=== PATIENT | female | born 1940 | race Caucasian/White ===

== ENCOUNTER → 2016-03-21 | Day surgery (SDC) | payer MEDICARE, OTHER ==
[~2016-03-21] MED LIST: BACITRACIN OINT 1 EACH PACKET TOPICAL ONE; LIDOCAINE 1% INJ 10MG/ML (20 ML MDV) ONE; LIDOCAINE 1%-EPI 1:100,000 20 ML VIAL ONE; SODIUM BICARB 4% 5 ML VIAL (0.48 MEQ/ML) ONE
--- NOTE | 2016-03-24 13:59 | MM ---
EXAMINATION TYPE: MG stereo VAD BX RT, MG stereo VAD BX addl LT DATE OF EXAM: 03/21/2016 4:37 PM COMPARISON: NONE CLINICAL HISTORY: Abnormal mammogram TECHNIQUE: Stereotactic guided core biopsy of both breasts. FINDINGS: The procedure of stereotactic guided core biopsy was explained to the patient. Benefits, alternatives, and risks were discussed. An informed consent was then obtained. The shortness pathway for biopsy was chosen. Shortness pathway was mediolateral on the right and lateral to medial on the left. PHYSICIAN OUTREACH AND EDUCATION SOCIAL WORKER: Dr. Nur. The patient tolerated the procedure well without any immediate complication. The patient was kept in the radiology department for short stay after the procedure and then discharged home in stable condition. Post biopsy mammogram shows the clip to appear in satisfactory position relative to the targeted area of concern on the preprocedure images. IMPRESSION: SUCCESSFUL, UNCOMPLICATED STEREOTACTIC GUIDED CORE BIOPSY OF AREA OF CONCERN IN BOTH BREASTS, FULL PATHOLOGY RESULTS TO FOLLOW. Pathology Results: Benign A. BREAST, RIGHT, CORE BIOPSY: FIBROCYSTIC CHANGES INCLUDING CYSTS, FIBROSIS, SCLEROSING ADENOSIS, APOCRINE METAPLASIA AND CALCIFICATIONS. B. BREAST, LEFT, CORE BIOPSY: FIBROADENOMA AND FIBROCYSTIC CHANGES INCLUDING FIBROSIS AND SMALL CYSTS. Recommendation Follow up mammogram of both breasts in 6 months. MASON
== END ==
LOC: RADMAMWWP 12:48
PROVIDERS: ATTEND Surgery
DX: D24.2 Benign neoplasm of left breast (principal); N60.12 Diffuse cystic mastopathy of left breast; N60.11 Diffuse cystic mastopathy of right breast; N60.21 Fibroadenosis of right breast; N60.81 Other benign mammary dysplasias of right breast; R92.1 Mammographic calcification found on diagnostic imaging of breast; R92.8 Other abnormal and inconclusive findings on diagnostic imaging of breast
CPT/HCPCS: 88305; 19081; 19082; A4648; J2001

== ENCOUNTER 2016-04-14 19:32 | Inpatient (IN) | payer MEDICARE, OTHER ==
[2016-04-14] MEDS ORDERED: ASPIRIN 81 MG CHEW PO STA (19:56)
[2016-04-14] MEDS ORDERED: NITROGLYCERIN SL TABS 0.4 MG TAB SUBLINGUAL STA (19:57)
--- NOTE | 2016-04-14 19:59 | ED ---
Arrhythmia/Palpitations HPI - General Chief Complaint: Arrhythmia/Palpitations Stated Complaint: racing heart Time Seen by Provider: 04/14/16 19:42 Source: patient, RN notes reviewed Mode of arrival: wheelchair Limitations: no limitations - History of Present Illness Initial Comments: This is a 75-year-old female history of colitis and previous heart problems who came in [facility] for evaluation of her blood pressure also she complained of an elevated heart rate. She states her blood pressure was running 183/100 yesterday today he was also elevated with a heart rate greater than 100. She also states she's been having 4-5/10 left-sided chest pressure. She has the pressure right now. She denies any cough fevers chills nausea vomiting sweats. She states she recently had bilateral breast biopsies she believes this pain is different than biopsies were done on March 21 of this year. She also states she has reflux the pain is different than the reflux. MD Complaint: palpitations - Related Data Home Medications Medication Instructions Recorded Confirmed Alive 1 tab PO DAILY 04/14/16 04/14/16 Aspirin EC [Ecotrin Low Dose] 81 mg PO DAILY PRN 04/14/16 04/14/16 Levothyroxine Sodium [Synthroid] 88 mcg PO DAILY 04/14/16 04/14/16 Lisinopril [Zestril] 5 mg PO BID 04/14/16 04/14/16 Allergies Allergy/AdvReac Type Severity Reaction Status Date / Time sulfamethoxazole Allergy Rash/Hives Verified 04/14/16 20:03 [From Bactrim] trimethoprim [From Bactrim] Allergy Rash/Hives Verified 04/14/16 20:03 Review of Systems ROS Statement: Those systems with pertinent positive or pertinent negative responses have been documented in the HPI. ROS Other: All systems not noted in ROS Statement are negative. Past Medical History Past Medical History: Coronary Artery Disease (CAD), Thyroid Disorder Additional Past Medical History / Comment(s): colitis, arthritis History of Any Multi-Drug Resistant Organisms: None Reported Past Surgical History: Hysterectomy Past Psychological History: No Psychological Hx Reported Smoking Status: Never smoker Past Alcohol Use History: None Reported Past Drug Use History: None Reported General Exam - General Exam Comments Initial Comments: This is a well-developed well-nourished awake alert oriented 3 female Limitations: no limitations General appearance: alert, in no apparent distress Head exam: Present: atraumatic, normocephalic, normal inspection Eye exam: Present: normal appearance, PERRL, EOMI. Absent: scleral icterus, conjunctival injection, periorbital swelling ENT exam: Present: normal exam, mucous membranes moist Neck exam: Present: normal inspection. Absent: tenderness, meningismus, lymphadenopathy Respiratory exam: Present: normal lung sounds bilaterally. Absent: respiratory distress, wheezes, rales, rhonchi, stridor Cardiovascular Exam: Present: regular rate, normal rhythm, normal heart sounds. Absent: systolic murmur, diastolic murmur, rubs, gallop, clicks GI/Abdominal exam: Present: soft, normal bowel sounds. Absent: distended, tenderness, guarding, rebound, rigid Extremities exam: Present: normal inspection, full ROM, normal capillary refill. Absent: tenderness, pedal edema, joint swelling, calf tenderness Back exam: Present: normal inspection Neurological exam: Present: alert, oriented X3, CN II-XII intact Psychiatric exam: Present: normal affect, normal mood Skin exam: Present: warm, dry, intact, normal color. Absent: rash Course Vital Signs 04/14/16 04/14/16 19:34 20:18 Temperature 98.2 F Pulse Rate 96 90 Respiratory 18 18 Rate Blood Pressure 179/80 94/61 O2 Sat by Pulse 98 99 Oximetry - Reevaluation(s) Reevaluation #1: 04/14/16 21:26 Reevaluation the patient after nitroglycerin was given reveals that she is pain- free. EKG Findings - EKG Results: EKG: interpreted by MOISES, sinus rhythm (Sinus rhythm with a rate of 81 a MS interval 178 QRS duration 92 daily since QTC of 364/422 frequent unifocal PVCs.) Medical Decision Making - Medical Decision Making I did discuss findings with patient has a facial be admitted for evaluation of suspected angina. - Lab Data Result diagrams: 04/14/16 19:52 04/14/16 19:52 Lab Results 04/14/16 04/14/16 04/14/16 Range/Units 19:52 19:52 19:52 WBC 7.0 (3.8-10.6) k/uL RBC 4.52 (3.80-5.40) m/uL Hgb 13.1 (11.4-16.0) gm/dL Hct 39.2 (34.0-46.0) % MCV 86.8 (80.0-100.0) fL MCH 29.0 (25.0-35.0) pg MCHC 33.5 (31.0-37.0) g/dL RDW 12.5 (11.5-15.5) % Plt Count 171 (150-450) k/uL Neutrophils % 65 % Lymphocytes % 28 % Monocytes % 6 % Eosinophils % 0 % Basophils % 0 % Neutrophils # 4.6 (1.3-7.7) k/uL Lymphocytes # 1.9 (1.0-4.8) k/uL Monocytes # 0.4 (0-1.0) k/uL Eosinophils # 0.0 (0-0.7) k/uL Basophils # 0.0 (0-0.2) k/uL PT (9.0-12.0) sec INR (<1.1) APTT (22.0-30.0) sec Sodium 141 (137-145) mmol/L Potassium 4.1 (3.5-5.1) mmol/L Chloride 101 (98-107) mmol/L Carbon Dioxide 27 (22-30) mmol/L Anion Gap 13 mmol/L BUN 12 (7-17) mg/dL Creatinine 0.68 (0.52-1.04) mg/dL Est GFR (MDRD) Af Amer >60 (>60 ml/min/1.73 sqM) Est GFR (MDRD) Non-Af >60 (>60 ml/min/1.73 sqM) Glucose 125 H (74-99) mg/dL Calcium 9.6 (8.4-10.2) mg/dL Magnesium 1.9 (1.6-2.3) mg/dL Total Bilirubin 0.4 (0.2-1.3) mg/dL AST 20 (14-36) U/L ALT 28 (9-52) U/L Alkaline Phosphatase 71 (38-126) U/L Total Creatine Kinase 37 (30-135) U/L CK-MB (CK-2) 0.2 (0.0-2.4) ng/mL CK-MB (CK-2) Rel Index 0.5 Troponin I <0.012 (0.000-0.034) ng/mL Total Protein 7.0 (6.3-8.2) g/dL Albumin 4.3 (3.5-5.0) g/dL 04/14/16 Range/Units 19:52 WBC (3.8-10.6) k/uL RBC (3.80-5.40) m/uL Hgb (11.4-16.0) gm/dL Hct (34.0-46.0) % MCV (80.0-100.0) fL MCH (25.0-35.0) pg MCHC (31.0-37.0) g/dL RDW (11.5-15.5) % Plt Count (150-450) k/uL Neutrophils % % Lymphocytes % % Monocytes % % Eosinophils % % Basophils % % Neutrophils # (1.3-7.7) k/uL Lymphocytes # (1.0-4.8) k/uL Monocytes # (0-1.0) k/uL Eosinophils # (0-0.7) k/uL Basophils # (0-0.2) k/uL PT 10.4 (9.0-12.0) sec INR 1.0 (<1.1) APTT 22.2 (22.0-30.0) sec Sodium (137-145) mmol/L Potassium (3.5-5.1) mmol/L Chloride (98-107) mmol/L Carbon Dioxide (22-30) mmol/L Anion Gap mmol/L BUN (7-17) mg/dL Creatinine (0.52-1.04) mg/dL Est GFR (MDRD) Af Amer (>60 ml/min/1.73 sqM) Est GFR (MDRD) Non-Af (>60 ml/min/1.73 sqM) Glucose (74-99) mg/dL Calcium (8.4-10.2) mg/dL Magnesium (1.6-2.3) mg/dL Total Bilirubin (0.2-1.3) mg/dL AST (14-36) U/L ALT (9-52) U/L Alkaline Phosphatase (38-126) U/L Total Creatine Kinase (30-135) U/L CK-MB (CK-2) (0.0-2.4) ng/mL CK-MB (CK-2) Rel Index Troponin I (0.000-0.034) ng/mL Total Protein (6.3-8.2) g/dL Albumin (3.5-5.0) g/dL - Radiology Data Radiology results: report reviewed (Review the x-ray report shows no acute findings.), image reviewed Critical Care Time Critical Care Time: Yes Critical Care Time: 31 minutes of critical care time which includes initial history physical lab and x-ray orders reevaluation the patient's response to therapy reevaluation the patient. Discussion with the patient's findings with patient and her . Discussion with the attending physician and the shoulders and documentation of the above. Disposition Clinical Impression: Unstable angina, PVCs (premature ventricular contractions), Hypertension Disposition: ADMITTED IP TO THIS [facility] Condition: Stable Referrals: Danyelle Reid MD [Primary Care Provider] - 1-2 days
[2016-04-14 20:19] LABS: Basophils % (A) 0 %; CH 29.7; CHCM 34.4; Eosinophils % (A) 0 %; HCT 39.2 % (34.0-46.0); HDW 2.45; HGB 13.1 gm/dL (11.4-16.0); Luc % (Auto) 1; Lymphocytes # (A) 1.9 k/uL (1.0-4.8); Lymphocytes % (A) 28 %; MCHC 33.5 g/dL (31.0-37.0); MCV 86.8 fL (80.0-100.0); Mean Platelet Volume 8.2; Monocytes # (A) 0.4 k/uL (0-1.0); Monocytes % (A) 6 %; Neutrophils # (A) 4.6 k/uL (1.3-7.7); Neutrophils % (A) 65 %; RBC 4.52 m/uL (3.80-5.40); RDW 12.5 % (11.5-15.5); WBC (Perox) 7.35
[2016-04-14 20:27] LABS: ALT 28 U/L (9-52); AST 20 U/L (14-36); Alkaline Phosphatase 71 U/L (38-126); Anion Gap 13 mmol/L; Blood Urea Nitrogen 12 mg/dL (7-17); Calcium 9.6 mg/dL (8.4-10.2); Carbon Dioxide 27 mmol/L (22-30); Chloride 101 mmol/L (98-107); Glucose 125 mg/dL (74-99); Magnesium 1.9 mg/dL (1.6-2.3); Non-African American GFR(MDRD) >60 (>60 ml/min/1.73 sqM); Partial Thromboplastin Time 22.2 sec (22.0-30.0); Potassium 4.1 mmol/L (3.5-5.1); Prothrombin Time 10.4 sec (9.0-12.0); Sodium 141 mmol/L (137-145); Total Bilirubin 0.4 mg/dL (0.2-1.3)
[2016-04-14 20:50] LABS: Creatine Kinase 37 U/L (30-135)
--- NOTE | 2016-04-14 20:50 | XR ---
EXAMINATION TYPE: XR chest 2V DATE OF EXAM: 04/14/2016 8:33 PM COMPARISON: 11/27/2012 HISTORY: Hypertension. Dysrhythmia. TECHNIQUE: Frontal and lateral views of the chest are obtained. FINDINGS: Heart and mediastinum are normal. Lungs are clear of consolidation. There are no hilar mas ses. There is mild pectus excavatum chest deformity. Bony thorax is intact. There are no hilar masses . There are chest leads. IMPRESSION: No active cardiopulmonary disease. Normal heart. No change.
[2016-04-14 21:02] LABS: Creatine Kinase MB 0.2 ng/mL (0.0-2.4); Troponin I <0.012 ng/mL (0.000-0.034)
[2016-04-14] MEDS ORDERED: HEPARIN SODIUM,PORCINE 5,000 UNIT/ML 1 ML VIAL IV ONE (21:30)
[2016-04-14] MEDS ORDERED: HEPARIN SODIUM,PORCINE/D5W PMX 25,000 UNIT in DEXTROSE/WATER 1 500ML.BAG IV SCH (21:30)
[2016-04-14] MEDS ORDERED: NITROGLYCERIN SL TABS 0.4 MG TAB SUBLINGUAL PRN (21:30)
[2016-04-14] MEDS: SODIUM CHLORIDE 0.9% 1,000 ML IV SCH (21:53)
[2016-04-14 22:33] VITALS: BMI 25.0
[2016-04-14] MEDS: NITROGLYCERIN OINT 1 INCH/GM PACKET TOPICAL SCH (22:58)
[2016-04-15 03:39] LABS: Creatine Kinase 33 U/L (30-135)
[2016-04-15 03:51] LABS: Creatine Kinase MB <0.2 ng/mL (0.0-2.4); Troponin I <0.012 ng/mL (0.000-0.034)
[2016-04-15] MEDS: NITROGLYCERIN OINT 1 INCH/GM PACKET TOPICAL SCH (04:03)
[2016-04-15 04:20] LABS: Cholesterol 162 mg/dL (<200); HDL Cholesterol 46 mg/dL (40-60); Triglycerides 115 mg/dL (<150)
[2016-04-15] MEDS: LEVOTHYROXINE 88 MCG TAB PO SCH (05:09)
[2016-04-15 07:42] VITALS: RESP 16
[2016-04-15 08:14] LABS: Creatine Kinase 52 U/L (30-135)
[2016-04-15 08:28] LABS: Creatine Kinase MB 0.4 ng/mL (0.0-2.4); Troponin I <0.012 ng/mL (0.000-0.034)
--- NOTE | 2016-04-15 09:39 | P.HPIM ---
History of Present Illness H&P Date: 04/15/16 75-year-old female presented on the day of admission to the emergency room to be evaluated for a chief complaint symptomatic elevated heart rate with an elevated blood pressure. Patient states that she monitors her blood pressure at home checks it a couple times a day. She stated that she noted her blood pressure was up to 180/100 and heart rate was up to 119 patient stated that she could feel heart palpitations. Additional patient stated that she was experiencing left-sided chest pressure. Patient stated she became concerned and came to the emergency room to be evaluated for the above-mentioned symptoms. Patient states her primary supervisor [employer] Dr. vc lacy which she sees twice a year last visit was 6 months ago. Patient states that she has not had a stress test it's been greater than a year. Patient states her blood pressure the last couple days has been elevated. Patient states that she's had episodes at home that she felt dizzy and lightheaded and has actually fallen. On admission to the emergency room blood pressure in the emergency room was 179/80 heart rate in the 90s. Nitropaste was applied in the emergency room with a blood pressure of 94/61 subsequent the patient was admitted to the services of the attending with a cardiology consultation requested It's noted last night around midnight the patient stated that she did get up to go to the bathroom by herself felt dizzy lightheaded and the next thing she knew she was on the floor nursing reports patient had fallen when the patient was on assisted getting up to the bathroom patient states that she had had similar episodes at home and has fallen orthostatic blood pressure readings were obtained this morning lying 124/53 heart rate in the 80s sitting 131/60 3 heart rate 82 standing 134/73 heart rate 80 monitor has maintained sinus rhythm Review of Systems Essentially unremarkable except as mentioned in the present illness Past Medical History Past Medical History: Coronary Artery Disease (CAD), Thyroid Disorder Additional Past Medical History / Comment(s): colitis, arthritis History of Any Multi-Drug Resistant Organisms: None Reported Past Surgical History: Hysterectomy Past Anesthesia/Blood Transfusion Reactions: Postoperative Nausea & Vomiting ( PONV) Past Psychological History: No Psychological Hx Reported Smoking Status: Never smoker Past Alcohol Use History: None Reported Past Drug Use History: None Reported - Past Family History Father Additional Family Medical History / Comment(s): Black lung and ETOH Mother Family Medical History: Cancer, CVA/TIA Additional Family Medical History / Comment(s): Uterine CA Medications and Allergies Home Medications Medication Instructions Recorded Confirmed Type Alive 1 tab PO DAILY 04/14/16 04/14/16 History Aspirin EC [Ecotrin Low Dose] 81 mg PO DAILY PRN 04/14/16 04/14/16 History Levothyroxine Sodium [Synthroid] 88 mcg PO DAILY 04/14/16 04/14/16 History Lisinopril [Zestril] 5 mg PO BID 04/14/16 04/14/16 History Allergies Allergy/AdvReac Type Severity Reaction Status Date / Time sulfamethoxazole Allergy Rash/Hives Verified 04/14/16 22:24 [From Bactrim] trimethoprim [From Bactrim] Allergy Rash/Hives Verified 04/14/16 22:24 Physical Exam Vitals: Vital Signs Temp Pulse Pulse Resp BP BP Pulse Ox 04/15/16 08:23 96 04/15/16 07:41 98.1 F 66 16 135/64 99 04/15/16 04:00 98 F 65 18 127/68 100 04/15/16 00:00 18 04/14/16 23:19 90 18 153/63 99 04/14/16 22:45 18 04/14/16 22:23 97.9 F 74 18 156/72 96 04/14/16 21:55 97.5 F L 71 18 130/64 99 Intake and Output 04/14/16 04/15/16 04/15/16 22:59 06:59 14:59 Intake Total 500 120 Balance 500 120 Intake: Oral 500 120 Other: Voiding Method Toilet # Voids 1 1 Weight 62.1 kg GENERAL APPEARANCE: 75-year-old female patient is alert, oriented 3, in no acute distress. Currently is denying any dizziness lightheadedness shortness of breath or chest pain VITAL SIGNS: Reviewed HEENT: Head is normocephalic and atraumatic. Pupils are equal and reactive. The nares are patent. Oropharynx is clear without lesions. NECK: Supple without lymphadenopathy. Traches midline. HEART: S1, S2. Regular rate and rhythm. A soft murmur noted appreciated best at the apex monitor currently showing sinus rhythm occasional PVCs rate 80 LUNGS: No crackles or wheezes are heard. On room air sats are 94% ABDOMEN: Soft, nontender, nondistended with good bowel sounds. No peritoneal signs. No palpable organomegaly or masses. Denies any burning on urination frequency urgency or incontinence denies any frequent stooling denies any nausea vomiting EXTREMITIES: Normal skin color and turgor. No cyanosis, rash, ulceration, clubbing or edema. Radial pedal pulses are 2/4 bilaterally. NEUROLOGICAL: No focal deficits. Strength and sensation are grossly intact. Results CBC & Chem 7: 04/14/16 19:52 04/14/16 19:52 Labs: Abnormal Lab Results - Last 24 Hours (Table) 04/15/16 Range/Units 03:00 APTT 46.3 H (22.0-30.0) sec Thrombosis Risk Factor Assmnt - Choose All That Apply Each Risk Factor Represents 2 Points: Age 61-74 years Thrombosis Risk Factor Assessment Total Risk Factor Score: 2 Thrombosis Risk Factor Assessment Level: Low Risk Assessment and Plan Plan: Impression Present on admission chest pain left chest anterior wall with cardiac enzymes times 3 sets negative Present on admission hypertension urgency history of hypertension History of hypothyroid on supplements History of frequent falls syncopal episodes at home Episode of a syncopal episode this admission Plan Check orthostatic blood pressure readings every shift Cardiology consultation pending Check echocardiogram Check thyroid studies Resume home meds as appropriate DVT and GI prophylaxis IV fluid at 100cchour Monitor blood pressure heart rate address as indicated Further recommendations pending The above dictated assessment and findings were discussed with Dr. Bryan Impression and the plan of care have been dictated as directed. Kassy Deshpande nurse practitioner acting as a scribe for dr bryan
[2016-04-15] MEDS ORDERED: ASPIRIN 81 MG CHEW PO PRN (09:44)
[2016-04-15] MEDS: HEPARIN SODIUM,PORCINE 5,000 UNIT/ML 1 ML VIAL SQ SCH ×3 (10:44→23:07)
[2016-04-15] MEDS: ASPIRIN 325 MG TAB PO SCH (10:44)
[2016-04-15] MEDS: FAMOTIDINE 20 MG TAB PO SCH ×2 (10:44→21:53)
--- NOTE | 2016-04-15 11:59 | US ---
EXAMINATION TYPE: US carotid duplex BILAT DATE OF EXAM: 04/15/2016 9:44 AM COMPARISON: NONE CLINICAL HISTORY: Syncopal episode. EXAM MEASUREMENTS: RIGHT: Peak Systolic Velocity (PSV) cm/sec ----- Right CCA: 84.6 ----- Right ICA: 82.7 ----- Right ECA: 90.0 ICA/CCA ratio: 1.0 RIGHT: End Diastole cm/sec ----- Right CCA: 22.0 ----- Right ICA: 15.8 ----- Right ECA: 8.6 LEFT: Peak Systolic Velocity (PSV) cm/sec ----- Left CCA: 106.2 ----- Left ICA: 77.1 ----- Left ECA: 102.8 ICA/CCA ratio: 0.7 LEFT: End Diastole cm/sec ----- Left CCA: 27.4 ----- Left ICA: 21.1 ----- Left ECA: 16.2 VERTEBRALS (direction of flow): Right Vertebral: Antegrade Left Vertebral: Antegrade Findings: Intimal thickening noted. IMPRESSION: 1. No significant hemodynamic stenosis bilaterally. Criteria for Assigning % of Stenosis / Diameter reduction (Estimation based on the indirect measurements of the internal carotid artery velocities (ICA PSV). 1. Normal (no stenosis)=ICA PSV < 125 cm/s: ratio < 2.0: ICA EDV<40 cm/s. 2. Less than 50% stenosis=ICA PSV < 125 cm/s: ratio < 2.0: ICA EDV<40 cm/s. 3. 50 to 69% stenosis=ICA PSV of 125 to 230 cm/s: ration 2.0 ? 4.0: ICA EDV 40-100 cm/s. 4. Greater than 70% stenosis to near occlusion= ICA PSV > 230 cm/s: ratio > 4.0: ICA EDV > 100 cm/s. 5. Near occlusion= ICA PSV velocities may be low or undetectable: variable ratio and ICA EDV. 6. Total occlusion=unable to detect flow.
--- NOTE | 2016-04-15 18:17 | CONS ---
DATE OF CONSULTATION: Mrs. Camara is a patient of Dr. Sandra Roe. She came in complaining of chest discomfort that was relieved with ( ). She had 5 out of 10 chest discomfort that was relieved with nitroglycerin, however, her blood pressure was also very high and was 183/100 mmHg and heart rate around 100 beats a minute. MEDICATIONS: Include 1. Aspirin. 2. Zestril 5 mg p.o. b.i.d. ALLERGIES TO SULFA AND TRIMETHOPRIM. REVIEW OF SYSTEMS: No fever, chills, rigors. No cough or expectoration. No nausea, vomiting or diarrhea. No hematuria or dysuria. No strokes or seizures. No skin lesions or musculoskeletal complaints. Past medical history of coronary artery disease, thyroid disease, and ulcerative colitis. PAST SURGICAL HISTORY: Hysterectomy. SOCIAL HISTORY: She is a never smoker. On examination initial blood pressure was 179/80 millimeters of mercury and subsequently one was 94/61 millimeters of Hg after nitroglycerin. On examination, heart sounds S1, S2 are normal. Breath sounds are normal. Head and neck examination is normal. No carotid bruits. ABDOMEN: Soft, nontender. EXTREMITIES: Warm. No edema. No cardiac murmurs. No rhonchi. No crackles of the lung piper. LABS: Reviewed. Cardiac enzymes x3 are normal. LDL is 93. Electrolytes are normal. IMPRESSION: 1. History of hypertension. 2. Possible history of dysautonomia. 3. History of chest discomfort in the setting of elevated blood pressure with normal cardiac enzymes. ECG shows normal sinus rhythm with normal cardiac intervals and PVCs with a left bundle branch block morphology. This has been noticed in the past. 4. Right ventricular PVCs from the ( ) muscle. SUGGEST: Tilt table test tomorrow. Lisinopril is on hold at this time. I would like to perform tilt table test to assess her for dysautonomia and form a plan of action. She fluctuates a lot even 5 mg once daily of Lisinopril and if I do not think a Catapres patch, even at its lowest dose would help her. She may be quite hypotensive on it. I will reassess this tomorrow after tilt table testing.
[2016-04-15] MEDS: LISINOPRIL 5 MG TAB PO SCH ×2 (18:20→21:29)
[2016-04-15] MEDS: SODIUM CHLORIDE 0.9% 1,000 ML IV SCH ×2 (18:24→18:44)
[2016-04-16] MEDS: LEVOTHYROXINE 88 MCG TAB PO SCH (05:20)
[2016-04-16 07:36] LABS: Basophils % (A) 0 %; CH 29.4; CHCM 33.5; Eosinophils % (A) 0 %; HCT 36.7 % (34.0-46.0); Luc # (Auto) 0.08; Luc % (Auto) 2; Lymphocytes # (A) 1.6 k/uL (1.0-4.8); Lymphocytes % (A) 37 %; MCH 28.8 pg (25.0-35.0); MCHC 32.7 g/dL (31.0-37.0); MCV 88.1 fL (80.0-100.0); Mean Platelet Volume 7.5; Monocytes # (A) 0.2 k/uL (0-1.0); Monocytes % (A) 6 %; Neutrophils # (A) 2.5 k/uL (1.3-7.7); Neutrophils % (A) 56 %; RBC 4.16 m/uL (3.80-5.40); RDW 12.5 % (11.5-15.5); WBC 4.4 k/uL (3.8-10.6); WBC (Perox) 4.75
[2016-04-16 07:46] LABS: ALT 29 U/L (9-52); AST 18 U/L (14-36); Alkaline Phosphatase 67 U/L (38-126); Anion Gap 7 mmol/L; Blood Urea Nitrogen 12 mg/dL (7-17); Calcium 9.3 mg/dL (8.4-10.2); Carbon Dioxide 29 mmol/L (22-30); Chloride 105 mmol/L (98-107); Glucose 95 mg/dL (74-99); Non-African American GFR(MDRD) >60 (>60 ml/min/1.73 sqM); Potassium 4.2 mmol/L (3.5-5.1); Sodium 141 mmol/L (137-145); Total Bilirubin 0.5 mg/dL (0.2-1.3); Total Protein 6.2 g/dL (6.3-8.2)
--- NOTE | 2016-04-16 10:16 | ECHOF ---
Referral Reason:LV function MEASUREMENTS -------- HEIGHT: 157.5 cm WEIGHT: 61.7 kg BP: 165/92 RVIDd: 2.3 cm (< 3.3) IVSd: 0.9 cm (0.6 - 1.1) LVIDd: 4.0 cm (3.9 - 5.3) LVPWd: 1.0 cm (0.6 - 1.1) IVSs: 1.5 cm LVIDs: 2.6 cm LVPWs: 1.6 cm LA Diam: 3.1 cm (2.7 - 3.8) LAESV Index (A-L): 19.80 ml/m Ao Diam: 2.3 cm (2.0 - 3.7) AV Cusp: 1.2 cm (1.5 - 2.6) LA Diam: 2.9 cm (2.7 - 3.8) MV EXCURSION: 10.738 mm (> 18.000) MV EF SLOPE: 54 mm/s (70 - 150) EPSS: 0.6 cm MV E Ghanshyam: 0.90 m/s MV DecT: 274 ms MV A Ghanshyam: 0.97 m/s MV E/A Ratio: 0.93 FINDINGS -------- Sinus rhythm. This was a technically good study. Left ventricular wall thickness is normal. Overall left ventricular systolic function is normal with, an EF between 55 - 60 %. The right ventricle is normal in size. Normal LA size by volume 22+/-6 ml/m2. The right atrium is normal in size. Aortic valve is trileaflet and is mildly thickened. The mitral valve leaflets are mildly thickened. Mild mitral annular calcification present. Mild mitral regurgitation is present. Trace tricuspid regurgitation present. Pulmonic valve appears structurally normal. The aortic root size is normal. Normal inferior vena cava with normal inspiratory collapse consistent with estimated right atrial pressure of 5 mmHg. Echo free space may represent effusion or a pericardial fat pad. CONCLUSIONS -------- 1. Sinus rhythm. 2. Mild mitral annular calcification present. 3. Mild mitral regurgitation is present. 4. Trace tricuspid regurgitation present. 5. Pulmonic valve appears structurally normal. 6. The aortic root size is normal. 7. Echo free space may represent effusion or a pericardial fat pad. 8. This was a technically good study. 9. Left ventricular wall thickness is normal. 10. Overall left ventricular systolic function is normal with, an EF between 55 - 60 %. 11. The right ventricle is normal in size. 12. Normal LA size by volume 22+/-6 ml/m2. 13. The right atrium is normal in size. 14. Aortic valve is trileaflet and is mildly thickened. 15. The mitral valve leaflets are mildly thickened. IDENTIFICATION OFFICER: Mayito Bo RDCS
[2016-04-16] MEDS: FAMOTIDINE 20 MG TAB PO SCH ×2 (10:47→20:43)
[2016-04-16] MEDS: ASPIRIN 325 MG TAB PO SCH (10:47)
[2016-04-16] MEDS: HEPARIN SODIUM,PORCINE 5,000 UNIT/ML 1 ML VIAL SQ SCH ×3 (10:48→23:46)
[2016-04-16] MEDS: LISINOPRIL 5 MG TAB PO SCH ×2 (11:24→21:08)
--- NOTE | 2016-04-16 14:40 | P.PN ---
Subjective Patient presented to the emergency room with complaint elevated heart rate and elevated blood pressure. Patient also had some dizziness and a near syncopal episode. Also having episodes of chest pain. Evaluated by cardiology and underwent a tilt table test today. Awaiting results. Patient does report having some dizziness during the testing. Also reporting she still unsteady on her feet. Denies any chest pain, shortness of breath, nausea or vomiting. Last bowel movement occult days ago. Denies any difficulty urinating. Objective - Vital Signs Vital signs: Vital Signs Temp 98.5 F 04/16/16 11:39 Pulse 75 04/16/16 11:39 Resp 16 04/16/16 11:39 BP 123/66 04/16/16 11:39 Pulse Ox 99 04/16/16 11:39 Intake & Output 04/15/16 04/16/16 04/16/16 18:59 06:59 18:59 Intake Total 436 520 Balance 436 520 Intake: Intake, IV Titration 120 Amount Sodium Chloride 0.9% 1, 120 000 ml @ 20 mls/hr IV . [facility] Rx#:[id number] Oral 436 400 Other: Voiding Method Toilet Toilet Toilet # Voids 1 3 - Exam Head normocephalic Neck supple Lungs clear to auscultation bilaterally no wheezing or crackles Heart regular rate and rhythm S1-S2, no rub or gallop Abdomen is soft nontender nondistended positive bowel sounds no hepatosplenomegaly Extremities no edema Neuro alert and orientated to 3 - Labs CBC & Chem 7: 04/16/16 07:12 04/16/16 07:12 Labs: Abnormal Lab Results - Last 24 Hours (Table) 04/16/16 Range/Units 07:12 Total Protein 6.2 L (6.3-8.2) g/dL TSH 0.253 L (0.465-4.680) mIU/L Assessment and Plan Plan: 1. Chest pain: RI ruled out cardiac enzymes negative 3 sets. EKG showing a normal sinus rhythm with PVCs and left bundle branch block 2. Accelerated hypertension present on admission has improved 3. Frequent falls with near syncopal episodes at home. Orthostatics negative. evaluated by cardiology. They've ordered a tilt table test results pending. Carotid Doppler is negative. Echo shows an EF of 55-60% 4. Hypothyroidism continue with the Synthroid 5. Medical debility and unsteady gait consult physical therapy DVT prophylaxis subcu heparin GI prophylaxis Pepcid Await further cardiac recommendations
[2016-04-16] MEDS: SODIUM CHLORIDE 0.9% 1,000 ML IV SCH (20:43)
--- NOTE | 2016-04-16 21:20 | CE ---
DATE OF SERVICE: Carmelina Camara underwent a tilt table test for recurrent dizzy spells and for evaluation for dysautonomia. Baseline blood pressure 136/65 mm mercury and 142/65 millimeters mercury, heart rate in the 60s. She was tilted upright at an angle of 70 degrees. There was an immediate drop in her blood pressure to 112/58 mm of mercury and then remained fairly constant thereafter. Heart rate increased in the 70s and 80s. When she was laid supine, blood pressure increased to 139/66 mm of mercury. IMPRESSION: Orthostatic hypotension syndrome.
[2016-04-17] MEDS: LEVOTHYROXINE 88 MCG TAB PO SCH (05:11)
[2016-04-17] MEDS ORDERED: SENNOSIDES 8.6 MG TAB PO PRN (08:31)
[2016-04-17] MEDS: FAMOTIDINE 20 MG TAB PO SCH (08:36)
[2016-04-17] MEDS: ASPIRIN 325 MG TAB PO SCH (08:36)
[2016-04-17] MEDS: HEPARIN SODIUM,PORCINE 5,000 UNIT/ML 1 ML VIAL SQ SCH (08:36)
[2016-04-17] MEDS: LISINOPRIL 5 MG TAB PO SCH (08:36)
[2016-04-17 12:09] VITALS: BP 153/74; PULSE 71; TEMP 97.7
--- NOTE | 2016-04-17 12:36 | PN ---
Mrs. Cramelina martin much is a 75-year-old female who presented with dizziness. She underwent a tilt table test yesterday and she has orthostatic hypotension syndrome. Her baseline blood pressure in the supine position is about 130 to 140 systolic, when she is tilted upright, her blood pressure immediately drops to about 112 mmHg and it stays around 110 systolic. When she is laid supine, her blood pressure returns to 130s to 140 mmHg. She was symptomatic with this, but she did not pass out. She has orthostatic hypotension syndrome with a very slight increase in heart rate. There was a very mild increase in heart rate. Today she is lying comfortably in bed. Her blood pressure is 139/83 mmHg as it was yesterday, heart rates are in the 60s. She is afebrile 97.4 degrees Fahrenheit. Heart sounds are normal. Lungs are clear to auscultation. Extremities are warm. No edema. IMPRESSION: 1. Orthostatic hypotension syndrome. 2. History of colitis, which makes it worse. SUGGEST: I gave her some lifestyle modification advice for this condition, but she understands that this is a neurologic condition and she will see Dr. Sandra Roe and we will refer to her to a neurologist who will evaluate her further and I think Droxidopa could be an appropriate choice for her.
--- NOTE | 2016-04-17 13:11 | P.DS ---
Providers Date of admission: 04/15/16 14:15 Expected date of discharge: 04/17/16 Attending physician: Sorin Bryan Primary care physician: Danyelle Reid [facility] Course: This is a 75-year-old female with past medical history noted below who presented to the emergency room with chest discomfort and dizziness. She was placed on observation was seen and evaluated by cardiology. Below is a list of her medical problems addressed during this hospital stay. 1. Chest pain: TX ruled out cardiac enzymes negative 3 sets. EKG showing a normal sinus rhythm with PVCs and left bundle branch block 2. Accelerated hypertension present on admission has improved 3. Frequent falls with near syncopal episodes at home. Orthostatics checked and negative tilt table test was positive. Patient received IV fluid hydration. She was evaluated by cardiology. Carotid Doppler is within normal range. Echo shows an EF of 55-60% with no significant valvular abnormalities 4. Hypothyroidism continue with the Synthroid Patient was cleared for discharge. She will follow-up with cardiology and her primary care physician as directed. Patient Condition at Discharge: Stable Plan - Discharge Summary Discharge Medication List Alive 1 tab PO DAILY 04/14/16 [History] Aspirin EC [Ecotrin Low Dose] 81 mg PO DAILY PRN 04/14/16 [History] Levothyroxine Sodium [Synthroid] 88 mcg PO DAILY 04/14/16 [History] Lisinopril [Zestril] 5 mg PO BID 04/14/16 [History] Follow up Appointment(s)/Referral(s): Danyelle Reid MD [Primary Care Provider] - 1-2 days
== END 2016-04-17 15:11 | disposition home or self-care (01) | DRG 312 ==
LOC: EC 19:32 → 3OBS 21:30 → OBSVTOIN 04-15 14:15
PROVIDERS: ADMIT Internal Medicine; ATTEND Internal Medicine
PROC: 4A03XB1 Measurement of Arterial Pressure, Peripheral, External Approach (ICD-10-PCS; 2016-04-16)
PROC: 4A02XFZ Measurement of Cardiac Rhythm, External Approach (ICD-10-PCS; principal; 2016-04-16 10:00)
DX: I95.1 Orthostatic hypotension (principal); I44.7 Left bundle-branch block, unspecified; I10 Essential (primary) hypertension; E03.9 Hypothyroidism, unspecified; K21.9 Gastro-esophageal reflux disease without esophagitis; R26.81 Unsteadiness on feet; Z91.81 History of falling; R07.9 Chest pain, unspecified; I25.10 Atherosclerotic heart disease of native coronary artery without angina pectoris; M19.90 Unspecified osteoarthritis, unspecified site; I49.3 Ventricular premature depolarization; Z79.82 Long term (current) use of aspirin; Z79.899 Other long term (current) drug therapy; Z88.1 Allergy status to other antibiotic agents; Z88.2 Allergy status to sulfonamides
CPT/HCPCS: 36415; 71020; 80053; 80061; 82550; 82553; 83735; 84439; 84443; 84484; 85025; 85610; 85730; 93005; 93306; 93660; 93880; 94760; 96361; 96365; 96366; 96372; 96374; 96375; 99291

== ENCOUNTER → 2016-09-19 | Outpatient (CLI) | payer MEDICARE, OTHER ==
--- NOTE | 2016-09-19 09:20 | MM ---
Reason for exam: follow-up at short interval from prior study. Last mammogram was performed 7 months ago. History: Patient is postmenopausal. Benign MG stereo VAD BX addl LT of the left breast, March 21, 2016. Benign MG stereo VAD BX RT of the right breast, March 21, 2016. Benign excisional biopsy of the right breast. Took estrogen for 15 years beginning at age 37. Physical Findings: Nurse did not find any significant physical abnormalities on exam. MG 3D Diag Mammo W/Cad ALEX Bilateral CC and MLO view(s) were taken. Prior study comparison: February 21, 2016, mammogram, performed at [facility]. December 14, 2014, mammogram, performed at [facility]. The breast tissue is heterogeneously dense. This may lower the sensitivity of mammography. Previous mammotome biopsy in the right and left breast. No significant new findings when compared with previous films. These results were verbally communicated with the patient and result sheet given to the patient on 09/19/16. ASSESSMENT: Benign, BI-RAD 2 RECOMMENDATION: Routine screening mammogram of both breasts in 6 months. Back on schedule.
== END | disposition home or self-care (01) ==
LOC: RADMAMWWP 08:19
PROVIDERS: ATTEND Family Medicine
DX: R92.8 Other abnormal and inconclusive findings on diagnostic imaging of breast (principal)
CPT/HCPCS: G0204; G0279

== ENCOUNTER → 2017-05-02 | Outpatient (CLI) | payer MEDICARE, OTHER ==
--- NOTE | 2017-05-02 12:10 | XR ---
EXAMINATION TYPE: XR chest 2V DATE OF EXAM: 05/02/2017 COMPARISON: 04/14/2016 TECHNIQUE: PA and lateral views submitted. HISTORY: Pain and fatigue FINDINGS: The lungs are clear and there is no pneumothorax, pleural effusion, or focal pneumonia. Hypertrophi c and degenerative change of the spine. Arthropathy of the shoulders noted. IMPRESSION: 1. No acute process.
--- NOTE | 2017-05-06 09:55 | MM ---
Reason for exam: screening (asymptomatic). Last mammogram was performed 7 months ago. History: Patient is postmenopausal. Benign MG stereo VAD BX addl LT of the left breast, March 21, 2016. Benign MG stereo VAD BX RT of the right breast, March 21, 2016. Benign excisional biopsy of the right breast. Took estrogen for 15 years beginning at age 37. Physical Findings: A clinical breast exam by your physician is recommended on an annual basis and results should be correlated with mammographic findings. MG 3D Screening Mammo W/Cad Bilateral CC and MLO view(s) were taken. Prior study comparison: September 19, 2016, bilateral MG 3d diag mammo w/cad ALEX. February 21, 2016, mammogram, performed at [facility]. The breast tissue is heterogeneously dense. This may lower the sensitivity of mammography. Previous mammotome biopsy in the right and left breast. No significant changes when compared with prior studies. ASSESSMENT: Benign, BI-RAD 2 RECOMMENDATION: Routine screening mammogram of both breasts in 1 year.
== END | disposition home or self-care (01) ==
LOC: RADMAMWWP 11:15
PROVIDERS: ATTEND Family Medicine
DX: Z12.31 Encounter for screening mammogram for malignant neoplasm of breast (principal); R53.83 Other fatigue
CPT/HCPCS: 71046; 77063; 77067

== ENCOUNTER 2017-08-03 07:29 | Emergency (ER) | payer MEDICARE, OTHER ==
[2017-08-03] MEDS ORDERED: SODIUM CHLORIDE 0.9% 1,000 ML IV STA (07:57)
[2017-08-03] MEDS ORDERED: KETOROLAC 30 MG/ML 1 ML VIAL IVP STA ×2 (07:57→08:57)
--- NOTE | 2017-08-03 08:19 | ED ---
Back Pain HPI - General Chief Complaint: Back Pain/Injury Stated Complaint: Back Pain Time Seen by Provider: 08/03/17 07:44 Source: patient, RN notes reviewed Limitations: no limitations - History of Present Illness Initial Comments: This is a 77-year-old female who presents with complaints of the onset of stabbing sharp right lower back pain at around 4 AM this morning when she got up. She states she has sweat with it no fevers chills no dysuria no hematuria. She denies any injury denies any known abdominal problems no weakness or upper or lower extremities. She states the pain was almost 10/10 initially is now 5/10 she points to her right SI joint area. She has no prior history kidney stones she denies any hematuria. No other modifying factors MD Complaint: back injury - Related Data Home Medications Medication Instructions Recorded Confirmed Alive 1 tab PO DAILY 04/14/16 04/14/16 Aspirin EC [Ecotrin Low Dose] 81 mg PO DAILY PRN 04/14/16 04/14/16 Levothyroxine Sodium [Synthroid] 88 mcg PO DAILY 04/14/16 04/14/16 Lisinopril [Zestril] 5 mg PO BID 04/14/16 04/14/16 Previous Rx's Medication Instructions Recorded methylPREDNISolone Dose Pack 4 mg PO DIRECTED #21 package 08/03/17 [Medrol Dose Pack] traMADol HCL [Ultram] 50 mg PO Q6HR PRN 3 Days #12 tab 08/03/17 Allergies Allergy/AdvReac Type Severity Reaction Status Date / Time sulfamethoxazole Allergy Rash/Hives Verified 08/03/17 07:35 [From Bactrim] trimethoprim [From Bactrim] Allergy Rash/Hives Verified 08/03/17 07:35 Review of Systems ROS Statement: Those systems with pertinent positive or pertinent negative responses have been documented in the HPI. ROS Other: All systems not noted in ROS Statement are negative. Past Medical History Past Medical History: Coronary Artery Disease (CAD), Thyroid Disorder Additional Past Medical History / Comment(s): colitis, arthritis History of Any Multi-Drug Resistant Organisms: None Reported Past Surgical History: Hysterectomy Past Anesthesia/Blood Transfusion Reactions: Postoperative Nausea & Vomiting ( PONV) Past Psychological History: No Psychological Hx Reported Smoking Status: Never smoker Past Alcohol Use History: None Reported Past Drug Use History: None Reported - Past Family History Father Additional Family Medical History / Comment(s): Black lung and ETOH Mother Family Medical History: Cancer, CVA/TIA Additional Family Medical History / Comment(s): Uterine CA General Exam - General Exam Comments Initial Comments: This is a well-developed well-nourished awake alert oriented 3 female Limitations: no limitations General appearance: alert, in no apparent distress Head exam: Present: atraumatic, normocephalic, normal inspection Eye exam: Present: normal appearance, PERRL, EOMI. Absent: scleral icterus, conjunctival injection, periorbital swelling ENT exam: Present: normal exam, mucous membranes moist Neck exam: Present: normal inspection. Absent: tenderness, meningismus, lymphadenopathy Respiratory exam: Present: normal lung sounds bilaterally. Absent: respiratory distress, wheezes, rales, rhonchi, stridor Cardiovascular Exam: Present: regular rate, normal rhythm, normal heart sounds. Absent: systolic murmur, diastolic murmur, rubs, gallop, clicks GI/Abdominal exam: Present: soft, normal bowel sounds. Absent: distended, tenderness, guarding, rebound, rigid Extremities exam: Present: normal inspection, full ROM, normal capillary refill. Absent: tenderness, pedal edema, joint swelling, calf tenderness Back exam: Present: normal inspection, full ROM (Limited range of motion secondary to the pain), tenderness (Tenderness over the right SI joint area to palpation no step-off or crepitation). Absent: CVA tenderness (R), CVA tenderness (L), muscle spasm, vertebral tenderness Neurological exam: Present: alert, oriented X3, CN II-XII intact Psychiatric exam: Present: normal affect, normal mood Skin exam: Present: warm, dry, intact, normal color. Absent: rash Course Vital Signs 08/03/17 08/03/17 07:33 10:01 Temperature 97.3 F L Pulse Rate 80 99 Respiratory 20 18 Rate Blood Pressure 185/79 139/65 O2 Sat by Pulse 99 98 Oximetry Medical Decision Making - Medical Decision Making I did discuss the findings with the patient she did get some relief from the medication was given. She will be discharged after IV medication the presentation is consistent with sacroiliitis of note she did state that she had a root canal done earlier this week - Lab Data Result diagrams: 08/03/17 08:13 08/03/17 08:13 Lab Results 08/03/17 08/03/17 08/03/17 Range/Units 08:13 08:13 08:13 WBC 5.0 (3.8-10.6) k/uL RBC 4.39 (3.80-5.40) m/uL Hgb 12.8 (11.4-16.0) gm/dL Hct 37.6 (34.0-46.0) % MCV 85.8 (80.0-100.0) fL MCH 29.1 (25.0-35.0) pg MCHC 33.9 (31.0-37.0) g/dL RDW 12.8 (11.5-15.5) % Plt Count 176 (150-450) k/uL Neutrophils % 79 % Lymphocytes % 15 % Monocytes % 5 % Eosinophils % 0 % Basophils % 0 % Neutrophils # 3.9 (1.3-7.7) k/uL Lymphocytes # 0.8 L (1.0-4.8) k/uL Monocytes # 0.3 (0-1.0) k/uL Eosinophils # 0.0 (0-0.7) k/uL Basophils # 0.0 (0-0.2) k/uL D-Dimer (<0.60) mg/L FEU Sodium 139 (137-145) mmol/L Potassium 4.4 (3.5-5.1) mmol/L Chloride 100 (98-107) mmol/L Carbon Dioxide 29 (22-30) mmol/L Anion Gap 10 mmol/L BUN 13 (7-17) mg/dL Creatinine 0.64 (0.52-1.04) mg/dL Est GFR (CKD-EPI)AfAm >90 (>60 ml/min/1.73 sqM) Est GFR (CKD-EPI)NonAf 88 (>60 ml/min/1.73 sqM) Glucose 117 H (74-99) mg/dL Calcium 9.3 (8.4-10.2) mg/dL Magnesium 2.0 (1.6-2.3) mg/dL Total Bilirubin 0.5 (0.2-1.3) mg/dL AST 20 (14-36) U/L ALT 26 (9-52) U/L Alkaline Phosphatase 70 (38-126) U/L Total Creatine Kinase 39 (30-135) U/L CK-MB (CK-2) 0.3 (0.0-2.4) ng/mL CK-MB (CK-2) Rel Index 0.8 Troponin I <0.012 (0.000-0.034) ng/mL Total Protein 6.3 (6.3-8.2) g/dL Albumin 3.9 (3.5-5.0) g/dL Lipase 41 (23-300) U/L Urine Color Urine Appearance (Clear) Urine pH (5.0-8.0) Ur Specific Flora (1.001-1.035) Urine Protein (Negative) Urine Glucose (UA) (Negative) Urine Ketones (Negative) Urine Blood (Negative) Urine Nitrite (Negative) Urine Bilirubin (Negative) Urine Urobilinogen (<2.0) mg/dL Ur Leukocyte Esterase (Negative) 08/03/17 08/03/17 Range/Units 08:13 09:00 WBC (3.8-10.6) k/uL RBC (3.80-5.40) m/uL Hgb (11.4-16.0) gm/dL Hct (34.0-46.0) % MCV (80.0-100.0) fL MCH (25.0-35.0) pg MCHC (31.0-37.0) g/dL RDW (11.5-15.5) % Plt Count (150-450) k/uL Neutrophils % % Lymphocytes % % Monocytes % % Eosinophils % % Basophils % % Neutrophils # (1.3-7.7) k/uL Lymphocytes # (1.0-4.8) k/uL Monocytes # (0-1.0) k/uL Eosinophils # (0-0.7) k/uL Basophils # (0-0.2) k/uL D-Dimer 1.00 H (<0.60) mg/L FEU Sodium (137-145) mmol/L Potassium (3.5-5.1) mmol/L Chloride (98-107) mmol/L Carbon Dioxide (22-30) mmol/L Anion Gap mmol/L BUN (7-17) mg/dL Creatinine (0.52-1.04) mg/dL Est GFR (CKD-EPI)AfAm (>60 ml/min/1.73 sqM) Est GFR (CKD-EPI)NonAf (>60 ml/min/1.73 sqM) Glucose (74-99) mg/dL Calcium (8.4-10.2) mg/dL Magnesium (1.6-2.3) mg/dL Total Bilirubin (0.2-1.3) mg/dL AST (14-36) U/L ALT (9-52) U/L Alkaline Phosphatase (38-126) U/L Total Creatine Kinase (30-135) U/L CK-MB (CK-2) (0.0-2.4) ng/mL CK-MB (CK-2) Rel Index Troponin I (0.000-0.034) ng/mL Total Protein (6.3-8.2) g/dL Albumin (3.5-5.0) g/dL Lipase (23-300) U/L Urine Color Yellow Urine Appearance Clear (Clear) Urine pH 6.5 (5.0-8.0) Ur Specific Flora 1.012 (1.001-1.035) Urine Protein Negative (Negative) Urine Glucose (UA) Negative (Negative) Urine Ketones Negative (Negative) Urine Blood Negative (Negative) Urine Nitrite Negative (Negative) Urine Bilirubin Negative (Negative) Urine Urobilinogen <2.0 (<2.0) mg/dL Ur Leukocyte Esterase Negative (Negative) - Radiology Data Radiology results: report reviewed (I did review the imaging and reports no acute findings.), image reviewed Disposition Clinical Impression: Sacroiliitis, Mechanical back pain Disposition: HOME SELF-CARE Condition: Good Instructions: Acute Low Back Pain (ED), Sacroiliitis (ED) Prescriptions: methylPREDNISolone Dose Pack [Medrol Dose Pack] 4 mg PO DIRECTED #21 package traMADol HCL [Ultram] 50 mg PO Q6HR PRN 3 Days #12 tab PRN Reason: Pain Is patient prescribed a controlled substance at d/c from ED?: Yes When asked, does pt state using other controlled substances?: No Referrals: Danyelle Reid MD [Primary Care Provider] - 1-2 days
[2017-08-03 08:30] LABS: Basophils % (A) 0 %; Eosinophils % (A) 0 %; HCT 37.6 % (34.0-46.0); HGB 12.8 gm/dL (11.4-16.0); Lymphocytes # (A) 0.8 k/uL (1.0-4.8); Lymphocytes % (A) 15 %; MCH 29.1 pg (25.0-35.0); MCHC 33.9 g/dL (31.0-37.0); MCV 85.8 fL (80.0-100.0); Mean Platelet Volume 7.8; Monocytes # (A) 0.3 k/uL (0-1.0); Monocytes % (A) 5 %; Neutrophils # (A) 3.9 k/uL (1.3-7.7); Neutrophils % (A) 79 %; Platelet Count 176 k/uL (150-450); RBC 4.39 m/uL (3.80-5.40); RDW 12.8 % (11.5-15.5)
[2017-08-03 08:41] LABS: ALT 26 U/L (9-52); AST 20 U/L (14-36); Albumin 3.9 g/dL (3.5-5.0); Alkaline Phosphatase 70 U/L (38-126); Anion Gap 10 mmol/L; Blood Urea Nitrogen 13 mg/dL (7-17); Calcium 9.3 mg/dL (8.4-10.2); Carbon Dioxide 29 mmol/L (22-30); Chloride 100 mmol/L (98-107); Glucose 117 mg/dL (74-99); Lipase 41 U/L (23-300); Potassium 4.4 mmol/L (3.5-5.1); Sodium 139 mmol/L (137-145); Total Bilirubin 0.5 mg/dL (0.2-1.3); Total Protein 6.3 g/dL (6.3-8.2)
--- NOTE | 2017-08-03 08:53 | XR ---
EXAMINATION TYPE: XR abdomen acute w cxr DATE OF EXAM: 08/03/2017 COMPARISON: Prior chest x-ray 05/02/2017 HISTORY: Pain TECHNIQUE: Supine, upright, and frontal chest views of the abdomen and chest are obtained. FINDINGS: Chest is stable, there is a pectus deformity. There is no evidence for pneumoperitoneum. The bowel gas pattern is unremarkable as there is air throughout nondilated small and large bowel. R etained fecal debris is noted in the colon. No sizeable air fluid levels. No mass effects are seen. No unusual calcifications. There is a levoscoliosis centered at the upper lumbar spine. Multilevel s pondylosis is noted. Probable phleboliths present in the pelvis. IMPRESSION: Correlate for fecal stasis. Scoliosis, degenerative disc disease.
--- NOTE | 2017-08-03 08:55 | XR ---
Lumbosacral spine HISTORY: Low back pain 5 views of the lumbosacral spine There is a levoscoliosis centered at L1-2. Multilevel spondylosis is present. Lumbar vertebral bodies show no spondylolysis, there is preserved height, bone mineralization somewhat reduced. There is los s of disc height at intervertebral levels. Sclerosis present in the posterior elements of the lower l umbar spine. Atherosclerotic vascular calcifications present in the aortoiliac regions. Mild anteroli sthesis grade 1 L3-4, L4-5 suspected. IMPRESSION: Degenerative disc disease, facet arthropathy, scoliosis and additional findings above.
[2017-08-03] MEDS ORDERED: RX INFO: IV CONTRAST WAS GIVEN 1 EACH MISC MISCELLANE PRN (08:56)
[2017-08-03 08:58] LABS: Creatine Kinase 39 U/L (30-135)
[2017-08-03 09:11] LABS: Creatine Kinase MB 0.3 ng/mL (0.0-2.4); Troponin I <0.012 ng/mL (0.000-0.034)
[2017-08-03 09:12] LABS: Appearance,Urine Clear (Clear); Bilirubin,Urine Negative (Negative); Blood,Urine Negative (Negative); Color,Urine Yellow; Glucose,Urine (UA) Negative (Negative); Ketones,Urine Negative (Negative); Leukocyte Esterase,Urine Negative (Negative); Nitrite,Urine Negative (Negative); PH, Urine 6.5 (5.0-8.0); Protein,Urine Negative (Negative); Specific Gravity,Urine 1.012 (1.001-1.035); Urobilinogen,Urine <2.0 mg/dL (<2.0)
--- NOTE | 2017-08-03 10:29 | CT ---
EXAMINATION TYPE: CT angio thoracic/abd aorta DATE OF EXAM: 08/03/2017 COMPARISON: NONE HISTORY: Back pain CT DLP: 530 mGycm. Automated Exposure Control for Dose Reduction was Utilized. CONTRAST: CT scan of the thorax, abdomen and pelvis is performed with IV Contrast, patient injected with 100 ml mL of Isovue 370. FINDINGS: Three-dimensional reconstructions performed on an alternate workstation. LUNGS: The lungs are grossly clear, there is no concerning parenchymal mass or nodule identified. T here is no pleural effusion or pneumothorax seen. The tracheobronchial tree is patent. MEDIASTINUM: There are no greater than 1 cm hilar or mediastinal lymph nodes. No pericardial effusi on is seen. The aorta shows no evident aneurysm or dissection. Mild atheromatous changes are present. 3 super aor tic branch vessels are present. Pulmonary arteries show no filling defect. Mesenteric vasculature is patent. No evident embolus. LIVER/GB: No significant abnormality is appreciated. PANCREAS: No significant abnormality is seen. SPLEEN: No significant abnormality is seen. ADRENALS: No significant abnormality is seen. KIDNEYS: No significant abnormality is seen. BOWEL: Duodenal diverticulum suspected within the level of the head of the pancreas. GENITAL ORGANS: Not seen is the uterus, suspect ovaries are unremarkable LYMPH NODES: No greater than 1cm abdominal or pelvic lymph nodes are appreciated. OSSEOUS STRUCTURES: Degenerative disc changes in the visualized spine, there is a spinal curvature. F acet arthropathy and spinal stenosis present in the lumbar spine OTHER: No significant additional abnormality is seen. IMPRESSION: No acute osseous fracture, abnormal fluid collection, or evidence of solid organ injury i n the thorax, abdomen, or pelvis.
[2017-08-03] MEDS ORDERED: fentaNYL (PF) 50 MCG/ML 2 ML AMP IV ONE (10:41)
[2017-08-03] MEDS ORDERED: methylPREDNISolone SOD SUCCI 125 MG/2 ML VIAL IV STA (10:56)
[2017-08-03 11:17] VITALS: RESP 16; TEMP 98
[2017-08-03 11:52] VITALS: BP 144/67; PULSE 64
== END 2017-08-03 11:53 | disposition home or self-care (01) ==
LOC: EC 07:29
DX: M46.1 Sacroiliitis, not elsewhere classified (principal); I25.10 Atherosclerotic heart disease of native coronary artery without angina pectoris; E07.9 Disorder of thyroid, unspecified; Z79.899 Other long term (current) drug therapy; Z88.1 Allergy status to other antibiotic agents
CPT/HCPCS: 36415; 85379; 80053; 82550; 82553; 83690; 83735; 84484; 85025; 81003; 74022; 72110; 75635; 71275; 99284; 96374; 96375 ×2; 96376; 96361 ×4; J2930; J3010; J1885; Q9967

== ENCOUNTER → 2017-12-26 | Outpatient (CLI) | payer MEDICARE, OTHER ==
--- NOTE | 2017-12-27 09:51 | NM ---
EXAMINATION TYPE: NM DatScan Brain SPECT DATE OF EXAM: 12/26/2017 COMPARISON: NONE HISTORY: Tremors TECHNIQUE: 10 drops of Lugol's solution was administered 1 hour prior to injection as a thyroid bloc chapo agent. After the administration of 4.66 mCi I-123 Ioflupane DaTscan. Images obtained 3 hours p ost injection. SPECT images of the brain were acquired with axial and coronal reconstructions. FINDINGS: The axial SPECT images demonstrate increased background activity and reduced activity withi n the bilateral striata. IMPRESSION: Abnormal appearance highly suggestive of idiopathic Parkinson's disease or Parkinsonian s yndrome.
== END | disposition home or self-care (01) ==
LOC: RADNMMAIN 10:14
PROVIDERS: ATTEND Psychiatry & Neurology Neurology
DX: R94.8 Abnormal results of function studies of other organs and systems (principal)
CPT/HCPCS: 78607; A9584

== ENCOUNTER → 2018-01-11 | Outpatient (CLI) | payer MEDICARE, OTHER ==
--- NOTE | 2018-01-11 09:04 | MR ---
EXAMINATION TYPE: MR brain wo con DATE OF EXAM: 01/11/2018 COMPARISON: HISTORY: Abnormal gait, falling TECHNIQUE: Multiplanar, multisequence images of the brain and brainstem is performed without IV contrast. FINDINGS: T2 Lesions Present : Yes Approximate Number of Lesions: 11 Locations Identified : Subcortical Size of Reference Lesion(s): 1. 3.8 mm x 5.6 mm on axial image 21 2 3.6 mm x 3.4 mm on axial image 17 Enhancing Lesion(s) Present: N/A T1 Hypointense Lesion(s) Present: No Change from Prior: No previous Midline structures are unremarkable. There is a normal craniocervical junction. Echoplanar diffusion imaging is normal. There are normal vascular flow voids. The orbits are normal. There is no evidence of a CP angle mass lesion. There is no mass effect, midline shift or intracranial blood. IMPRESSION: 1. NO ACUTE INTRACRANIAL ABNORMALITY. 2. SCATTERED HIGH SIGNAL FLAIR LESIONS WHICH ARE NONSPECIFIC. THESE ARE NOT CLASSIC FOR MULTIPLE SCLE ROSIS.
--- NOTE | 2018-01-11 09:16 | MR ---
EXAMINATION TYPE: MR cspine/lspine wo con DATE OF EXAM ORDERED: 01/11/2018 8:28 AM HISTORY: M54.5 Low back pain / M54.2 Cervicalgia / R26.9. TECHNOLOGIST HISTORY AT TIME OF EXAM: Neck, low back pain, falling, arthritis COMPARISON: TECHNIQUE: Multiplanar, multiecho imaging of the cervical spine was obtained without contrast on a 1 .5 isidro magnet. CERVICAL SPINE: FINDINGS: Paraspinal soft tissues are normal. There is a mild retrograde listhesis of C3 on C4, C5 on C6 and C6 on C7. Atlantoaxial relationships a re normal. There is a normal craniocervical junction. Cord signal is normal. At C2-C3, there is a small central disc protrusion with cord contact but without compression. The int ervertebral foramina are maintained. There is no significant facet or uncovertebral joint disease. At C3-C4, there is a mild retrograde listhesis of C3 on C4. There is a diffuse, broad-based disc prot rusion deforming the thecal sac with cord contact and mild compression. There is mild right-sided int ervertebral foraminal narrowing. The facets are unremarkable. There is mild uncovertebral joint disea se. At C4-C5, there is disc space loss. Intervertebral foramina are reasonably well-maintained. There is no significant compressive discopathy. The facet and uncovertebral joints are unremarkable. At C5-C6, there is disc space loss. There is a mild retrograde listhesis of C5 on C6. There is a diff use disc displacement. There is bilateral intervertebral foraminal narrowing. The facets are unremark able. There is mild uncovertebral joint disease. At C6-C7, there is disc space loss. There is bilateral intervertebral foraminal narrowing. There is a mild retrograde listhesis of C6 on C7. There is a broad-based disc protrusion deforming the thecal s ac with cord contact but without compression. There is mild, bilateral intervertebral foraminal narro wing. The facets are unremarkable. There is mild uncovertebral joint disease. At C7-T1, no definite abnormality is seen. IMPRESSION: 1. DIFFUSE DEGENERATIVE DISC DISEASE. 2. MILD UNCOVERTEBRAL JOINT DISEASE. 3. MULTILEVEL INTERVERTEBRAL FORAMINAL NARROWING. 5. CENTRAL DISC PROTRUSION AT C2-3. 6. BROAD-BASED DISC PROTRUSION C3-4 AND C6-7. LUMBAR SPINE: FINDINGS: Paraspinal soft tissues are normal. There is a gentle levoscoliosis. There is a grade 1 antegrade listhesis of L3 on L4. Alignment is otherwise maintained. Cord signal is maintained. The conus ends normally at the level of the mid body of L2. At T12-L1, there is right-sided intervertebral foraminal narrowing. There is a broad-based disc displ acement. There is mild facet arthropathy. At L1-2, there is disc space loss. There is a diffuse disc displacement. There is bilateral intervert ebral foraminal narrowing. There is mild facet arthropathy. There is mild trefoiling of the thecal sa c. At L2-3, there is no significant compressive discopathy. There is mild, bilateral intervertebral fora tyrell narrowing. There is mild facet arthropathy. There is mild trefoiling of the thecal sac. At L3-4, there are is a degenerative grade 1 spondylolisthesis of L3 on L4. There is bilateral interv ertebral foraminal narrowing. There is a pseudodisc. There is moderate to severe central canal stenos is. There is facet arthropathy. L4-5, there is mild, bilateral intervertebral foraminal narrowing. There is a diffuse disc displaceme nt. There are fairly marked hypertrophic changes in the facets. There is severe central canal stenosi s. At L5-S1, there is bilateral intervertebral foraminal narrowing. There is mild facet arthropathy. The re is no significant compressive discopathy. IMPRESSION: 1. DIFFUSE DEGENERATIVE DISC DISEASE AND FACET ARTHROPATHY. 2. 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 3. VARYING DEGREES OF CENTRAL CANAL COMPROMISE MOST MARKED AT L3-4 AND L4-5.
== END ==
LOC: RADMRIMAIN 07:06
PROVIDERS: ATTEND Psychiatry & Neurology Neurology
DX: M99.71 Connective tissue and disc stenosis of intervertebral foramina of cervical region (principal); M50.21 Other cervical disc displacement, high cervical region; M50.30 Other cervical disc degeneration, unspecified cervical region; M51.36 Other intervertebral disc degeneration, lumbar region; M43.16 Spondylolisthesis, lumbar region; M46.96 Unspecified inflammatory spondylopathy, lumbar region; M25.9 Joint disorder, unspecified; G93.89 Other specified disorders of brain
CPT/HCPCS: 70551; 72141; 72148

== ENCOUNTER → 2018-05-19 | Outpatient (CLI) | payer MEDICARE ==
--- NOTE | 2018-05-20 10:12 | MM ---
Reason for exam: screening (asymptomatic). Last mammogram was performed 1 year and 1 month ago. History: Patient is postmenopausal. Benign MG stereo VAD BX addl LT of the left breast, March 21, 2016. Benign MG stereo VAD BX RT of the right breast, March 21, 2016. Benign excisional biopsy of the right breast. Took estrogen for 15 years beginning at age 37. Physical Findings: A clinical breast exam by your physician is recommended on an annual basis and results should be correlated with mammographic findings. MG 3D Screening Mammo W/Cad Bilateral CC and MLO view(s) were taken. Prior study comparison: May 02, 2017, bilateral MG 3d screening mammo w/cad. September 19, 2016, bilateral MG 3d diag mammo w/cad ALEX. The breast tissue is heterogeneously dense. This may lower the sensitivity of mammography. There are benign appearing round linear calcifications bilaterally. Previous mammotome biopsy in the right and left breast. There is no discrete abnormality. ASSESSMENT: Benign, BI-RAD 2 RECOMMENDATION: Routine screening mammogram of both breasts in 1 year.
== END ==
LOC: RADMAMWWP 08:49
PROVIDERS: ATTEND Family Medicine
DX: Z12.31 Encounter for screening mammogram for malignant neoplasm of breast (principal)
CPT/HCPCS: 77063; 77067

== ENCOUNTER 2018-07-23 08:39 | Day surgery (SDC) | payer MEDICARE ==
[2018-07-22 08:48] VITALS: BMI 21.2
[~2018-07-23 08:39] MED LIST changes: -BACITRACIN OINT 1 EACH PACKET TOPICAL ONE; +LACTATED RINGERS 1,000 ML IV SCH; +LIDOCAINE 1% 20 ML VIAL (10MG/ML) FOR IV START INTRADERMA PRN; -LIDOCAINE 1% INJ 10MG/ML (20 ML MDV) ONE; -LIDOCAINE 1%-EPI 1:100,000 20 ML VIAL ONE; -SODIUM BICARB 4% 5 ML VIAL (0.48 MEQ/ML) ONE
--- NOTE | 2018-07-23 09:04 | P.GSHP ---
History of Present Illness H&P Date: 07/23/18 Chief Complaint: Blood in stool 78-year-old female presents to the hospital today for colonoscopy. Patient was found recently have occult blood in stool. Previous colonoscopy in 2013 showed active colitis on the left-hand side. That was during a inpatient hospitalization. The patient was suspected to have ischemic colitis at that time. Past Medical History Past Medical History: Coronary Artery Disease (CAD), Osteoarthritis (OA), Thyroid Disorder Additional Past Medical History / Comment(s): positive cologuard,Parkinson's,hx gastric ulcers,colitis, arthritis History of Any Multi-Drug Resistant Organisms: None Reported Past Surgical History: Hysterectomy, Orthopedic Surgery Additional Past Surgical History / Comment(s): arthroscopy lt knee Past Anesthesia/Blood Transfusion Reactions: No Reported Reaction Additional Past Anesthesia/Blood Transfusion Reaction / Comment(s): no hx blood transfusion Smoking Status: Never smoker - Past Family History Father Additional Family Medical History / Comment(s): Black lung and ETOH Mother Family Medical History: Cancer, CVA/TIA Additional Family Medical History / Comment(s): Uterine CA Medications and Allergies Home Medications Medication Instructions Recorded Confirmed Type Levothyroxine Sodium [Synthroid] 88 mcg PO QAM 04/14/16 07/22/18 History Carbidopa-Levodopa 25-100 mg 1 each PO TID 07/22/18 07/22/18 History [Sinemet 25-100] Allergies Allergy/AdvReac Type Severity Reaction Status Date / Time sulfamethoxazole Allergy Rash/Hives Verified 07/22/18 08:38 [From Bactrim] trimethoprim [From Bactrim] Allergy Rash/Hives Verified 07/22/18 08:38 Surgical - Exam Physical exam: General: Well-developed, well-nourished HEENT: Normocephalic, sclerae nonicteric Abdomen: Nontender, nondistended Extremities: No edema Neuro: Alert and oriented Assessment and Plan (1) Blood in stool Narrative/Plan: Will proceed with colonoscopy at this time. Current Visit: Yes Status: Acute Code(s): K92.1 - MELENA SNOMED Code(s): 064204713
[2018-07-23 09:51] VITALS: TEMP 97.9
[2018-07-23] MEDS ORDERED: LIDOCAINE 1% INJ 10MG/ML (20 ML MDV) ONE (10:05)
[2018-07-23] MEDS ORDERED: PROPOFOL 10 MG/ML 20 ML VIAL IV ONE (10:05)
--- NOTE | 2018-07-23 10:31 | P.PCN ---
Date of Procedure: 07/23/18 Procedure(s) Performed: PREOPERATIVE DIAGNOSIS: Blood in stool POSTOPERATIVE DIAGNOSIS: Mass at base of cecum and second area involving hepatic flexure PROCEDURE: Colonoscopy with biopsy and spot injection ANESTHESIA: MAC SURGEON: Edwardo Wilkinson M.D. SPECIMENS: Cecal mass, hepatic flexure mass ENDOSCOPIC PROCEDURE: The patient was placed on the endoscopy table in the left decubitus position. The Olympus colonoscope was inserted into the anus and passed under direct visualization to the base of the cecum. The appendiceal orifice was visualized. From that point the scope was slowly withdrawn inspecting all surfaces carefully. At the base of the cecum there was an ulcerated mass that measured approximately 2.5 cm. This was biopsied and appeared consistent with neoplasm. There were 2 polyps in the ascending colon that were small in nature. A larger mass was present at the hepatic flexure me asuring about 3-4 cm. Biopsies were taken. Spot injection took place just distal to this lesion. The remainder of the transverse descending sigmoid and rectum appeared normal. There was no visible diverticulosis. Digital rectal examination was normal. The patient was taken to the recovery room in stable condition per anesthesia guidelines. RECOMMENDATIONS: Await biopsy results. Will order CT abdomen and pelvis. Check CEA level. Follow-up in the office to review biopsy results and CAT scan report.
[2018-07-23 10:36] VITALS: RESP 16
[2018-07-23 10:59] VITALS: BP 163/76; PULSE 65
[2018-07-23 12:00] LABS: Basophils % (A) 0 %; Eosinophils % (A) 0 %; HGB 12.6 gm/dL (11.4-16.0); Lymphocytes # (A) 1.3 k/uL (1.0-4.8); Lymphocytes % (A) 27 %; MCH 29.9 pg (25.0-35.0); MCHC 33.1 g/dL (31.0-37.0); MCV 90.1 fL (80.0-100.0); Mean Platelet Volume 7.6; Monocytes # (A) 0.2 k/uL (0-1.0); Monocytes % (A) 5 %; Neutrophils # (A) 3.2 k/uL (1.3-7.7); Neutrophils % (A) 66 %; Platelet Count 172 k/uL (150-450); RBC 4.22 m/uL (3.80-5.40); WBC 4.8 k/uL (3.8-10.6)
[2018-07-23 12:26] LABS: ALT 19 U/L (9-52); AST 21 U/L (14-36); Albumin 3.8 g/dL (3.5-5.0); Alkaline Phosphatase 72 U/L (38-126); Anion Gap 7 mmol/L; Blood Urea Nitrogen 13 mg/dL (7-17); Calcium 9.2 mg/dL (8.4-10.2); Carbon Dioxide 27 mmol/L (22-30); Chloride 104 mmol/L (98-107); Glucose 80 mg/dL (74-99); Potassium 4.6 mmol/L (3.5-5.1); Sodium 138 mmol/L (137-145); Total Bilirubin 0.8 mg/dL (0.2-1.3); Total Protein 6.2 g/dL (6.3-8.2)
== END 2018-07-23 11:38 | disposition home or self-care (01) ==
LOC: ORWHC2ENDO 08:39
PROVIDERS: ATTEND Surgery
DX: C18.0 Malignant neoplasm of cecum (principal); D12.3 Benign neoplasm of transverse colon; E07.9 Disorder of thyroid, unspecified; G20 Parkinson's disease; I25.10 Atherosclerotic heart disease of native coronary artery without angina pectoris; M19.90 Unspecified osteoarthritis, unspecified site; Z87.19 Personal history of other diseases of the digestive system; Z88.1 Allergy status to other antibiotic agents; Z88.2 Allergy status to sulfonamides; Z79.890 Hormone replacement therapy; Z79.899 Other long term (current) drug therapy
CPT/HCPCS: 88305; 80053; 82378; 85025; 45380; J2001; J2704

== ENCOUNTER → 2018-08-01 | Outpatient (CLI) | payer MEDICARE ==
[2018-08-01 09:32] LABS: Blood Urea Nitrogen 16 mg/dL (7-17)
--- NOTE | 2018-08-01 11:35 | CT ---
EXAMINATION TYPE: CT abdomen pelvis w con DATE OF EXAM: 08/01/2018 HISTORY: Colon mass CT DLP: 808mGycm Automated Exposure Control for Dose Reduction was Utilized. CONTRAST: CT scan of the abdomen and pelvis is performed with IV Contrast, patient injected with 100 ml mL of I sovue 300. COMPARISON: None. FINDINGS: LUNG BASES: No significant abnormality is appreciated. Epicardial nonenlarged lymph node is incidenta lly noted. LIVER/GB: There is a solitary subcapsular too small to accurately characterize hypoattenuated lesion on image 33 measuring 3 mm within the right hepatic lobe. Alternatively this could represent artifact from the adjacent rib. Nearly anechoic small 2-3 mm lesions are also seen within segment 8 of the li eflicia on image 16, 17, and 18. PANCREAS: No significant abnormality is seen. SPLEEN: Benign calcified granulomas. ADRENALS: No significant abnormality is seen. KIDNEYS: No significant abnormality is seen. BOWEL: Duodenal diverticulum is incidentally noted. There is narrowing of the left renal vein and duo denum by acute angle of the superior mesenteric artery seen on series 3 image 29 and image 37 respect ively. SMA syndrome can be evaluated for with appropriate clinical symptoms. There is some colonic wall thickening near the hepatic flexure, within the ascending colon near the c ecum, and within the rectum. Marked amount of retained colonic stool limits evaluation for evaluation of neoplasm. No obstructing annular lesion is seen. No dilated small bowel. LYMPH NODES: No greater than 1cm abdominal or pelvic lymph nodes are appreciated. OSSEOUS STRUCTURES: Diffuse mottled appearance of the osseous structures may relate to osseous demine ralization rather than diffuse osseous metastasis. No focal sclerotic or lytic lesion is seen. There is a slight levoscoliosis of the thoracolumbar spine in a long segment and moderate multilevel degene rative changes of the spine. OTHER: Pelvic floor relaxation/prolapse is seen creating bulky appearance of the vaginal cuff and rec ajay. This limits evaluation of these levels. IMPRESSION: 1. Colonic wall thickening of the hepatic flexure, within the colon near the cecum and within the rec ajay although findings are severely limited given marked fecal stasis and pelvic floor relaxation/rect al prolapse. Correlate with colonoscopy results. No annular constricting obstructing colonic mass is seen. 2. Very small 2 to 3 mm hepatic lesions that are too small to accurately characterize.
== END | disposition home or self-care (01) ==
LOC: RADCTMAIN 08:42
PROVIDERS: ATTEND Surgery
DX: K62.3 Rectal prolapse (principal); K76.89 Other specified diseases of liver; K63.89 Other specified diseases of intestine
CPT/HCPCS: 82565; 84520; 74177; 36415; Q9967

== ENCOUNTER → 2018-09-01 | Outpatient (CLI) | payer MEDICARE ==
[2018-09-01 11:23] LABS: HCT 41.3 % (34.0-46.0); HGB 13.3 gm/dL (11.4-16.0); MCH 28.8 pg (25.0-35.0); MCHC 32.2 g/dL (31.0-37.0); MCV 89.4 fL (80.0-100.0); Mean Platelet Volume 7.4; Platelet Count 202 k/uL (150-450); RBC 4.62 m/uL (3.80-5.40); RDW 12.9 % (11.5-15.5)
[2018-09-01 11:30] LABS: Potassium 4.4 mmol/L (3.5-5.1)
== END | disposition home or self-care (01) ==
LOC: LABWHC1 09:57
PROVIDERS: ATTEND Surgery
DX: Z01.812 Encounter for preprocedural laboratory examination (principal); C18.9 Malignant neoplasm of colon, unspecified
CPT/HCPCS: 36415; 80051; 85027

== ENCOUNTER 2018-09-08 08:57 | Inpatient (IN) | payer MEDICARE ==
[2018-09-02 12:43] VITALS: BMI 21.0
[~2018-09-08 08:57] MED LIST changes: +DEXAMETHASONE SOD PHOSPHATE 10 MG/ML 1 ML VIAL IV ONE; +HEPARIN SODIUM,PORCINE 5,000 UNIT/ML 1 ML VIAL SQ ONE; -LACTATED RINGERS 1,000 ML IV SCH; +MIDAZOLAM 2 MG/2 ML VIAL IV PRN; +ONDANSETRON 4 MG/2 ML VIAL IVP ONE; +ceFAZolin IN SWFI 2 GM/20 ML SYRINGE IVP ONE; +fentaNYL (PF) 50 MCG/ML 2 ML AMP IV PRN; +metroNIDAZOLE-NS PMX 500 MG in SALINE 1 100ML.BAG IVPB ONE
[2018-09-08] MEDS: LACTATED RINGERS 1,000 ML IV SCH (09:33)
--- NOTE | 2018-09-08 10:20 | P.GSHP ---
History of Present Illness H&P Date: 09/08/18 Chief Complaint: Colon cancer 78-year-old female underwent recent colonoscopy showing a poorly differentiated adenocarcinoma of the cecum and a suspicious large awl point mass biopsy negative at the hepatic flexure. Patient otherwise with no complaints. CAT scan showed some thickening of the hepatic flexure. CEA level was normal. Patient has had medical clearance obtained. Past Medical History Past Medical History: Coronary Artery Disease (CAD), Cancer, Eye Disorder, Hypertension, Musculoskeletal Disorder, Osteoarthritis (OA), Thyroid Disorder Additional Past Medical History / Comment(s): Parkinson's, hx gastric ulcers, colitis. Fred Blepharitis. Prob w/ lt knee, edema rt ankle. RADIOACTIVE IODINE TX TO TYROID. COLONOSCOPY 07/23/18, POS CANCER BIOPSY. History of Any Multi-Drug Resistant Organisms: None Reported Past Surgical History: Hysterectomy, Orthopedic Surgery Additional Past Surgical History / Comment(s): arthroscopy lt knee. 07/23/18 colonoscopy Past Anesthesia/Blood Transfusion Reactions: No Reported Reaction Additional Past Anesthesia/Blood Transfusion Reaction / Comment(s): no hx blood transfusion Smoking Status: Never smoker - Past Family History Father Additional Family Medical History / Comment(s): Black lung and ETOH Mother Family Medical History: Cancer, CVA/TIA Additional Family Medical History / Comment(s): Uterine CA Medications and Allergies Home Medications Medication Instructions Recorded Confirmed Type Levothyroxine Sodium [Synthroid] 75 mcg PO QAM 04/14/16 09/02/18 History Carbidopa-Levodopa 25-100 mg 1 each PO TID 07/22/18 09/08/18 History [Sinemet 25-100] Allergies Allergy/AdvReac Type Severity Reaction Status Date / Time strawberry Allergy Rash/Hives Verified 09/08/18 09:13 sulfamethoxazole Allergy Rash/Hives Verified 09/08/18 09:13 [From Bactrim] trimethoprim [From Bactrim] Allergy Rash/Hives Verified 09/08/18 09:13 Surgical - Exam Vital Signs Temp Pulse Resp BP Pulse Ox 97.0 F L 88 17 140/66 97 09/08/18 09:26 09/08/18 09:26 09/08/18 09:26 09/08/18 09:26 09/08/18 09:26 Physical exam: General: Well-developed, well-nourished HEENT: Normocephalic, sclerae nonicteric Abdomen: Nontender, nondistended Extremities: No edema Neuro: Alert and oriented Assessment and Plan (1) Colon cancer Narrative/Plan: Will proceed with da Bright assisted laparoscopic right colectomy at this time. Risks of bleeding, infection, leak, abscess, duodenal or ureteral injury, ostomy need, conversion to an open procedure, anesthesia related complications reviewed. She understands and wishes to proceed. Current Visit: Yes Status: Acute Code(s): C18.9 - MALIGNANT NEOPLASM OF COLON, UNSPECIFIED SNOMED Code(s): 146490148
[2018-09-08] MEDS ORDERED: NEOSTIGMINE 1 MG/ML 10 ML VIAL ONE (10:47)
[2018-09-08] MEDS ORDERED: MIDAZOLAM 2 MG/2 ML VIAL ONE (10:47)
[2018-09-08] MEDS ORDERED: PROPOFOL 10 MG/ML 20 ML VIAL IV ONE (10:47)
[2018-09-08] MEDS ORDERED: ROCURONIUM BROMIDE 10 MG/ML 10 ML VIAL IV ONE (10:47)
[2018-09-08] MEDS ORDERED: PHENYLEPHRINE-0.9% NACL SYG 1 MG/10 ML SYRINGE ONE (10:47)
[2018-09-08] MEDS ORDERED: LIDOCAINE 1% INJ 10MG/ML (20 ML MDV) ONE (10:47)
[2018-09-08] MEDS ORDERED: fentaNYL (PF) 50 MCG/ML 2 ML AMP ONE (10:47)
[2018-09-08] MEDS ORDERED: GLYCOPYRROLATE 0.2 MG/ML 2 ML VIAL ONE (10:47)
[2018-09-08] MEDS ORDERED: BUPIVACAINE (PF) 0.5% 30 ML VIAL SQ ONE ×2 (11:29→14:36)
[2018-09-08] MEDS ORDERED: LACTATED RINGERS 1,000 ML IV ONE (14:20)
[2018-09-08] MEDS ORDERED: METOCLOPRAMIDE 5 MG/ML 2 ML VIAL IVP PRN (14:52)
[2018-09-08] MEDS ORDERED: HYDROmorphone 1 MG/ML 1 ML SYRINGE IVP PRN (14:52)
--- NOTE | 2018-09-08 14:59 | P.OP ---
Date of Procedure: 09/08/18 Procedure(s) Performed: PREOPERATIVE DIAGNOSIS: Right-sided colon cancer POSTOPERATIVE DIAGNOSIS: Same PROCEDURE: Laparoscopic da Bright assisted right colectomy with intracorporeal anastomosis SURGEON: Jaja EBL: Minimal see anesthesia records ANESTHESIA: General COMPLICATIONS: None OPERATIVE PROCEDURE: Patient was placed on the operating table in the supine position. The patient was placed under general anesthesia. A Dumont catheter was placed. The patient's arms were tucked. The abdomen was prepped and draped in usual sterile fashion. A small Pfannenstiel incision was created in the midline. The subcutaneous fat and fascia were divided horizontally using electrocautery. The rectus muscle was divided vertically using blunt dissection and entrance into the peritoneal cavity occurred. The Morales lap cap was placed. Through the GelPort adapter of the Morales a 12 mm robotic port and a 12 mm assist port were placed. Full insufflation took place to 15 mmHg. 3 additional trochars were placed for the robot a 12 mm in the left subcostal a 8 mm in the left lateral infraumbilical and a 8 mm trocar in the left lower quadrant location. An additional 5 mm trocar was placed in the lateral abdomen as an miner assistant port. The patient was placed in Trendelenburg right side up. The liver was free of any evidence of distant metastasis. The patient's no malignancy was not identified visibly. The area of tattooing marking the distal aspect of the unresected polyp was noted at the hepatic flexure. The retroperitoneum was evaluated. The ileocolic pedicle was identified by retracting the cecum anteriorly and laterally. Careful dissection using both blunt dissection and cautery took place in the retroperitoneum. The duodenum was quickly identified and this was protected throughout the remainder of the procedure. Our dissection took place laterally and circumferentially around the ileocolic pedicle. The ileocolic pedicle was divided using a 45 white load stapler. No bleeding was seen from our staple line. Blunt dissection in the retroperitoneum took place. Once we reached the lateral abdomen from our retroperitoneal approach the ileum cecum and ascending colon were mobilized by incising the lateral peritoneal attachments. We entered into the previous retroperitoneal dissection plane. The ureter was visualized and protected throughout the case. The hepatic flexure was mobilized in a similar fashion although in that location we started using the vessel sealer. The gastrocolic omentum was dissected away from the proximal transverse colon. Once we were able to visualize the transverse colon and hepatic flexure well the transverse colon was divided using a blue load 45 stapler x2. The mesentery of the transverse colon was then divided using the vessel sealer. The small bowel was divided as well using a robotic blue load stapler. At this point our specimen w as free and placed in the right upper quadrant. The terminal ileum was brought in an isoperistaltic manner adjacent to the transverse colon. 2 separate 3-0 GI silk stay sutures were placed proximally and distally. Small enterotomy and colotomy took place. At that time stapler was fired along the antimesenteric border of both the small bowel and the colon. 2 separate firings of the 45 blue load stapler were utilized. We had an adequate opening between the small bowel and colon at that point. The defect was closed transversely using a running full-thickness 20V lock suture. Once the defect was closed I used a running horizontal mattress Lambert suture along the length of the staple line in order to imbricate that area. The previously placed 3-0 GI silk sutures acted as stay sutures proximally and distally. The specimen was grasped through the Morales assist port and the pneumoperitoneum was evacuated. The specimen was able to be retrieved quite easily. The fascia was closed using a running 1 Vicryl suture. The 12 mm trocar site fascia was closed using a [id number] 0 Vicryl suture. The subcutaneous tissues were irrigated with saline. The subcutaneous tissues were closed using 3-0 Vicryl sutures. The skin at all locations were closed using 4-0 Monocryl sutures. Dermabond was then utilized. Sterile dressings were applied. DISPOSITION: Stable to recovery room
[2018-09-08] MEDS: HEPARIN SODIUM,PORCINE 5,000 UNIT/ML 1 ML VIAL SQ SCH (17:24)
[2018-09-08] MEDS: D5-0.45% NACL WITH KCL 20MEQ/L 1,000 ML IV SCH (18:16)
[2018-09-08] MEDS: ALVIMOPAN 12 MG CAPSULE PO SCH (21:20)
[2018-09-08] MEDS: FAMOTIDINE 20 MG/2 ML VIAL IV SCH (21:20)
[2018-09-08] MEDS: CARBIDOPA-LEVODOPA 25-100 MG 1 EACH TAB PO SCH (21:20)
[2018-09-09] MEDS: HEPARIN SODIUM,PORCINE 5,000 UNIT/ML 1 ML VIAL SQ SCH ×3 (00:31→17:25)
[2018-09-09] MEDS: D5-0.45% NACL WITH KCL 20MEQ/L 1,000 ML IV SCH ×3 (00:31→17:14)
[2018-09-09] MEDS: LACTATED RINGERS 1,000 ML IV SCH (03:44)
[2018-09-09] MEDS: LEVOTHYROXINE 75 MCG TAB PO SCH (06:04)
[2018-09-09] MEDS: CARBIDOPA-LEVODOPA 25-100 MG 1 EACH TAB PO SCH ×3 (06:21→21:55)
[2018-09-09] MEDS: ALVIMOPAN 12 MG CAPSULE PO SCH ×2 (08:05→20:32)
[2018-09-09] MEDS: FAMOTIDINE 20 MG/2 ML VIAL IV SCH ×2 (08:13→20:33)
[2018-09-09] MEDS: ONDANSETRON 4 MG/2 ML VIAL IVP PRN (08:25)
[2018-09-09 08:27] LABS: Basophils % (A) 0 %; Eosinophils % (A) 0 %; HCT 34.6 % (34.0-46.0); HGB 11.1 gm/dL (11.4-16.0); Lymphocytes % (A) 12 %; MCH 28.7 pg (25.0-35.0); MCHC 32.2 g/dL (31.0-37.0); MCV 89.1 fL (80.0-100.0); Mean Platelet Volume 7.4; Monocytes # (A) 0.4 k/uL (0-1.0); Monocytes % (A) 5 %; Neutrophils # (A) 6.9 k/uL (1.3-7.7); Neutrophils % (A) 82 %; Platelet Count 171 k/uL (150-450); RBC 3.88 m/uL (3.80-5.40); WBC 8.4 k/uL (3.8-10.6)
[2018-09-09 08:51] LABS: African American GFR (CKD) >90 (>60 ml/min/1.73 sqM); Anion Gap 7 mmol/L; Blood Urea Nitrogen 7 mg/dL (7-17); Calcium 8.4 mg/dL (8.4-10.2); Carbon Dioxide 27 mmol/L (22-30); Chloride 105 mmol/L (98-107); Glucose 142 mg/dL (74-99); Sodium 139 mmol/L (137-145)
[2018-09-09] MEDS ORDERED: ACETAMINOPHEN TAB 325 MG TAB PO PRN (09:16)
[2018-09-09] MEDS ORDERED: MORPHINE SULFATE 2 MG/ML SYRINGE IVP PRN (09:16)
--- NOTE | 2018-09-09 10:29 | P.CONS ---
History of Present Illness - Reason for Consult Consult date: 09/09/18 Medical management Requesting physician: Edwardo Wilkinson - Chief Complaint Colon cancer - History of Present Illness This is a 78-year-old female patient of Dr. Evans. Patient presented for an elective laproscopic Da Bright assisted right colectomy with intracorporeal anas tomosis with Dr. tellez for right-sided colon cancer. Patient recently underwent colonoscopy showing a poorly differentiated adenocarcinoma of the cecum. Patient has past medical history of coronary artery disease, Parkinson's disorder, hypertension, arthritis, thyroid disorder and colitis. Patient is currently postop day 1. Patient is currently resting comfortably in bed. This time patient denies any chest pain or shortness of breath. Patient denies any nausea vomiting or diarrhea. Patient denies any urinary burning or frequency. Patient currently on clear liquid diet. Review of Systems please refer to HPI otherwise unremarkable Past Medical History Past Medical History: Coronary Artery Disease (CAD), Cancer, Eye Disorder, Hypertension, Musculoskeletal Disorder, Osteoarthritis (OA), Thyroid Disorder Additional Past Medical History / Comment(s): Parkinson's, hx gastric ulcers, colitis. Fred Blepharitis. Prob w/ lt knee, edema rt ankle. RADIOACTIVE IODINE TX TO TYROID. COLONOSCOPY 07/23/18, POS CANCER BIOPSY. History of Any Multi-Drug Resistant Organisms: None Reported Past Surgical History: Hysterectomy, Orthopedic Surgery Additional Past Surgical History / Comment(s): arthroscopy lt knee. 07/23/18 colonoscopy Past Anesthesia/Blood Transfusion Reactions: No Reported Reaction Additional Past Anesthesia/Blood Transfusion Reaction / Comm: no hx blood transfusion Past Psychological History: No Psychological Hx Reported Smoking Status: Never smoker Past Alcohol Use History: None Reported Past Drug Use History: None Reported - Past Family History Father Additional Family Medical History / Comment(s): Black lung and ETOH Mother Family Medical History: Cancer, CVA/TIA Additional Family Medical History / Comment(s): Uterine CA Medications and Allergies Home Medications Medication Instructions Recorded Confirmed Type Carbidopa-Levodopa 25-100 mg 1 tab PO TID 07/22/18 09/08/18 History [Sinemet 25-100] Levothyroxine Sodium [Synthroid] 75 mcg PO DAILY 09/08/18 09/08/18 History Allergies Allergy/AdvReac Type Severity Reaction Status Date / Time strawberry Allergy Rash/Hives Verified 09/08/18 15:02 sulfamethoxazole Allergy Rash/Hives Verified 09/08/18 15:02 [From Bactrim] trimethoprim [From Bactrim] Allergy Rash/Hives Verified 09/08/18 15:02 Physical Exam Vitals: Vital Signs Temp Pulse Pulse Resp BP Pulse Ox 09/09/18 07:00 98.0 F 67 14 137/65 97 09/09/18 01:17 98.7 F 67 16 117/66 95 09/08/18 19:00 98.5 F 93 17 134/67 98 09/08/18 18:10 108 H 124/63 09/08/18 17:53 77 153/71 99 09/08/18 17:38 79 155/68 99 09/08/18 17:28 16 09/08/18 17:23 88 155/69 98 09/08/18 17:08 74 153/65 99 09/08/18 16:53 78 146/66 100 09/08/18 16:38 78 128/64 99 09/08/18 16:23 78 145/65 98 09/08/18 16:08 76 128/62 98 09/08/18 15:45 70 16 144/67 95 09/08/18 15:30 75 16 158/72 97 09/08/18 15:15 68 16 148/67 100 09/08/18 15:00 98.4 F 70 12 158/68 96 Intake and Output 09/08/18 09/09/18 09/09/18 22:59 06:59 14:59 Intake Total 0 180 Output Total 30 800 Balance -30 -800 180 Intake: IV 0 Oral 180 Output: Urine 30 800 Other: Voiding Method Indwelling Catheter Indwelling Catheter Indwelling Catheter Head normocephalic Neck supple Lungs clear to auscultation bilaterally no wheezing or crackles Heart regular rate and rhythm S1-S2, no rub or gallop Abdomen is soft nontender, hypoactive bowel sounds. 5 incisional sites noted. Extremities no edema Neuro alert and orientated to 3 Results CBC & Chem 7: 09/09/18 07:45 09/09/18 07:45 Labs: Abnormal Lab Results - Last 24 Hours (Table) 09/09/18 09/09/18 Range/Units 07:45 07:45 Hgb 11.1 L (11.4-16.0) gm/dL Glucose 142 H (74-99) mg/dL Assessment and Plan Assessment: 1. status post da Bright-assisted laparoscopic right colectomy for right colon cancer with Dr. tellez. Postop day 1. Patient maintained on clear liquid diet 2. Right colon cancer. Colonoscopy and biopsies performed on 07/23/2018 positive for invasive moderate to poorly differentiated adenocarcinoma 3. History of Parkinson's disease home medications resumed 4. Hypothyroidism. Synthroid resumed 5. History of osteoarthritis 6. History of essential hypertension 7. History of coronary artery disease DVT prophylaxis heparin. GI prophylaxis Pepcid Thank you for this consultation we will continue to follow patient closely throughout stay Time with Patient: Greater than 30 (Greater than 60% of the total time spent in counseling and coordination of care. I performed an examination of the patient and discussed their management with the Nurse Practitioner. I have reviewed the Nurse Practitioner's notes and agree with the documented findings and plan of care)
--- NOTE | 2018-09-09 12:03 | P.PN ---
<Flower Kenney Sunita - Last Filed: 09/09/18 12:03> Subjective Progress Note Date: 09/09/18 CHIEF COMPLAINT: Colon cancer HISTORY OF PRESENT ILLNESS: Patient is status post laparoscopic da Bright robotic assisted right colectomy. POD #1. Patient examined at the bedside. Patient reports recently receiving Dilaudid which has now made her feel like her head is spinning. Pain is controlled. She denies nausea or vomiting. Tolerating clear liquid diet. Denies passing flatus or BM. Using incentive spirometer and able to pull 500 mL. WBC 8.4. Hemoglobin 11.1. PHYSICAL EXAM: VITAL SIGNS: Reviewed. GENERAL: Well-developed in no acute distress. HEENT: No sclera icterus. Extraocular movements grossly intact. Moist buccal mucosa. Head is atraumatic, normocephalic. ABDOMEN: Soft. Nondistended. Mild surgical tenderness. Incision sites clean dry and intact without drainage or signs of infection. NEUROLOGIC: Alert and oriented. Cranial nerves II through XII grossly intact. ASSESSMENT: 1. Colon cancer, status post right colectomy PLAN: 1. Continue clear liquid diet until bowel function returns 2. Activity as tolerated. PT/OT 3. Pain control. Will try small dose of morphine instead of Dilaudid. We'll also add Toradol and Tylenol if narcotics continue to make patient feel dizzy 4. Encourage use of incentive spirometer. 5. Discontinue Dumont catheter today if patient able to ambulate safely Nurse practitioner note has been reviewed by physician. Signing provider agrees with the documented findings, assessment, and plan of care. Objective - Vital Signs Vital signs: Vital Signs Temp 98.0 F 09/09/18 07:00 Pulse 67 09/09/18 07:00 Resp 14 09/09/18 07:00 BP 137/65 09/09/18 07:00 Pulse Ox 97 09/09/18 07:00 Intake & Output 09/08/18 09/09/18 09/09/18 18:59 06:59 18:59 Intake Total 1300 180 Output Total 500 800 Balance 800 -800 180 Intake: IV 1300 Oral 180 Output: Urine 475 800 Estimated Blood Loss 25 Other: Voiding Method Indwelling Catheter Indwelling Catheter Indwelling Catheter - Labs CBC & Chem 7: 09/09/18 07:45 09/09/18 07:45 Labs: Abnormal Lab Results - Last 24 Hours (Table) 09/09/18 09/09/18 Range/Units 07:45 07:45 Hgb 11.1 L (11.4-16.0) gm/dL Glucose 142 H (74-99) mg/dL <Edwardo Wilkinson - Last Filed: 09/09/18 17:08> Subjective As above. Patient doing well today. She had both flatus and bowel movement. She is tolerating clears. Will increase activity. Objective - Vital Signs Vital signs: Vital Signs Temp 97.6 F 09/09/18 14:46 Pulse 55 L 09/09/18 14:46 Resp 15 09/09/18 14:46 BP 138/64 09/09/18 14:46 Pulse Ox 100 09/09/18 14:46 Intake & Output 09/08/18 09/09/18 09/09/18 18:59 06:59 18:59 Intake Total 1300 180 Output Total 368 407 5846 Balance 800 -800 -1620 Weight 52.163 kg Intake: IV 1300 Oral 180 Output: Urine 309 253 5804 Uretheral (Dumont) 1500 Estimated Blood Loss 25 Other: Voiding Method Indwelling Catheter Indwelling Catheter Indwelling Catheter # Voids 3 - Labs CBC & Chem 7: 09/09/18 07:45 09/09/18 07:45 Labs: Abnormal Lab Results - Last 24 Hours (Table) 09/09/18 09/09/18 Range/Units 07:45 07:45 Hgb 11.1 L (11.4-16.0) gm/dL Glucose 142 H (74-99) mg/dL Assessment and Plan (1) Colon cancer Current Visit: Yes Status: Acute Code(s): C18.9 - MALIGNANT NEOPLASM OF COLON, UNSPECIFIED SNOMED Code(s): 668204609
[2018-09-09] MEDS: KETOROLAC 30 MG/ML 1 ML VIAL IVP SCH ×2 (12:06→17:25)
[2018-09-09] MEDS ORDERED: KETOROLAC 30 MG/ML 1 ML VIAL IVP SCH (18:00)
[2018-09-10] MEDS ORDERED: LEVOTHYROXINE 75 MCG TAB ONE
[2018-09-10] MEDS ORDERED: CARBIDOPA-LEVODOPA 25-100 MG 1 EACH TAB ONE
[2018-09-10] MEDS ORDERED: HEPARIN SODIUM,PORCINE 5,000 UNIT/ML 1 ML VIAL ONE
[2018-09-10] MEDS: D5-0.45% NACL WITH KCL 20MEQ/L 1,000 ML IV SCH ×3 (05:18→15:42)
[2018-09-10] MEDS: HEPARIN SODIUM,PORCINE 5,000 UNIT/ML 1 ML VIAL SQ SCH ×4 (05:18→23:56)
[2018-09-10] MEDS: KETOROLAC 30 MG/ML 1 ML VIAL IVP SCH ×5 (05:18→23:56)
[2018-09-10] MEDS: LACTATED RINGERS 1,000 ML IV SCH (05:19)
[2018-09-10] MEDS: LEVOTHYROXINE 75 MCG TAB PO SCH (05:25)
[2018-09-10] MEDS: CARBIDOPA-LEVODOPA 25-100 MG 1 EACH TAB PO SCH ×3 (06:36→22:49)
[2018-09-10] MEDS ORDERED: HYDROcodone/APAP 5-325MG 1 EACH TAB PO PRN (09:00)
[2018-09-10] MEDS: FAMOTIDINE 20 MG/2 ML VIAL IV SCH ×3 (09:03→22:00)
[2018-09-10] MEDS: ALVIMOPAN 12 MG CAPSULE PO SCH ×2 (09:03→21:49)
[2018-09-10 09:09] LABS: Basophils % (A) 0 %; Eosinophils % (A) 0 %; HCT 32.1 % (34.0-46.0); HGB 10.3 gm/dL (11.4-16.0); Lymphocytes # (A) 1.1 k/uL (1.0-4.8); Lymphocytes % (A) 19 %; MCH 28.9 pg (25.0-35.0); MCHC 32.1 g/dL (31.0-37.0); MCV 90.1 fL (80.0-100.0); Mean Platelet Volume 7.5; Monocytes # (A) 0.3 k/uL (0-1.0); Monocytes % (A) 5 %; Neutrophils # (A) 4.2 k/uL (1.3-7.7); Neutrophils % (A) 74 %; Platelet Count 146 k/uL (150-450); RBC 3.57 m/uL (3.80-5.40); WBC 5.6 k/uL (3.8-10.6)
--- NOTE | 2018-09-10 10:08 | P.PN ---
Subjective Progress Note Date: 09/10/18 This is a 78-year-old female patient of Dr. Evans. Patient presented for an elective laproscopic Da Bright assisted right colectomy with intracorporeal anastomosis with Dr. tellez for right-sided colon cancer. 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 Patient has past medical history of coronary artery disease, Parkinson's disorder, hypertension, arthritis, thyroid disorder and colitis. Patient is currently postop day 1. Patient is currently resting comfortably in bed. This time patient denies any chest pain or shortness of breath. Patient denies any nausea vomiting or diarrhea. Patient denies any urinary burning or frequency. Patient currently on clear liquid diet. On 09/10/2018 patient is alert and oriented 3 resting comfortably in chair. Dumont catheter has been removed per surgical services. At that time patient maintained on clear liquid diet. Possible advancement of diet per surgical services. Patient denies any chest pain or shortness of breath. Patient denies any nausea vomiting or diarrhea. Patient denies any urinary burning or frequency. Objective - Vital Signs Vital signs: Vital Signs Temp 98.7 F 09/10/18 07:35 Pulse 79 09/10/18 07:35 Resp 15 09/10/18 07:35 BP 162/75 09/10/18 07:35 Pulse Ox 96 09/10/18 07:35 Intake & Output 09/09/18 09/10/18 09/10/18 18:59 06:59 18:59 Intake Total 420 125 240 Output Total 1800 Balance -1380 125 240 Weight 52.163 kg Intake: Intake, IV Titration 125 Amount D5-0.45% NaCl with KCl 125 20Meq/l 1,000 ml @ 125 mls/hr IV .Q8H [facility] Rx#: [id number] Oral 420 240 Output: Urine 1800 Uretheral (Dumont) 1500 Other: Voiding Method Indwelling Catheter # Voids 3 3 1 - Exam Head normocephalic Neck supple Lungs clear to auscultation bilaterally no wheezing or crackles Heart regular rate and rhythm S1-S2, no rub or gallop Abdomen is soft nontender, hypoactive bowel sounds. 5 incisional sites noted. Extremities no edema Neuro alert and orientated to 3 - Labs CBC & Chem 7: 09/10/18 08:06 09/09/18 07:45 Labs: Abnormal Lab Results - Last 24 Hours (Table) 09/10/18 Range/Units 08:06 RBC 3.57 L (3.80-5.40) m/uL Hgb 10.3 L (11.4-16.0) gm/dL Hct 32.1 L (34.0-46.0) % Plt Count 146 L (150-450) k/uL Assessment and Plan Assessment: 1. status post da Bright-assisted laparoscopic right colectomy for right colon cancer with Dr. tellez. Postop day 2. Patient maintained on clear liquid diet 2. Right colon cancer. Colonoscopy and biopsies performed on 07/23/2018 positive for invasive moderate to poorly differentiated adenocarcinoma 3. History of Parkinson's disease home medications resumed 4. Hypothyroidism. Synthroid resumed 5. History of osteoarthritis 6. History of essential hypertension 7. History of coronary artery disease 8. Expected acute blood loss anemia secondary to surgery. Hemoglobin 10.3 DVT prophylaxis heparin. GI prophylaxis Pepcid Thank you for this consultation we will continue to follow patient closely throughout stay I performed an examination of the patient and discussed their management with the Nurse Practitioner. I have reviewed the Nurse Practitioner's notes and agree with the documented findings and plan of care
--- NOTE | 2018-09-10 10:57 | P.PN ---
<Flower Kenney Sunita - Last Filed: 09/10/18 11:04> Subjective Progress Note Date: 09/10/18 CHIEF COMPLAINT: Colon cancer HISTORY OF PRESENT ILLNESS: Patient is status post laparoscopic da Bright robotic assisted right colectomy. POD #2. Patient examined this morning. She is sitting up in the chair washing up. She reports her pain is tolerable this morning. She is tolerating clear liquids but states she does not like the options on the clear liquid diet. Reports loose bowel movements. Using IS. Pulls 500-750cc. WBC 5.6. hemoglobin 10.3. PHYSICAL EXAM: VITAL SIGNS: Reviewed. GENERAL: Well-developed in no acute distress. HEENT: No sclera icterus. Extraocular movements grossly intact. Moist buccal mucosa. Head is atraumatic, normocephalic. ABDOMEN: Soft. Nondistended. Mild surgical tenderness. Incision sites clean dry and intact without drainage or signs of infection. NEUROLOGIC: Alert and oriented. Cranial nerves II through XII grossly intact. ASSESSMENT: 1. Colon cancer, status post right colectomy PLAN: 1. Advance diet to full liquid 2. Activity as tolerated. PT/OT 3. Pain control. We will begin [place]. 4. Encourage use of incentive spirometer. 5. Await pathology 6. Anticipate discharge home tomorrow if patient remains stable Nurse practitioner note has been reviewed by physician. Signing provider agrees with the documented findings, assessment, and plan of care. Objective - Vital Signs Vital signs: Vital Signs Temp 98.7 F 09/10/18 07:35 Pulse 79 09/10/18 07:35 Resp 15 09/10/18 07:35 BP 162/75 09/10/18 07:35 Pulse Ox 96 09/10/18 07:35 Intake & Output 09/09/18 09/10/18 09/10/18 18:59 06:59 18:59 Intake Total 420 125 240 Output Total 1800 Balance -1380 125 240 Weight 52.163 kg Intake: Intake, IV Titration 125 Amount D5-0.45% NaCl with KCl 125 20Meq/l 1,000 ml @ 125 mls/hr IV .Q8H [facility] Rx#: [id number] Oral 420 240 Output: Urine 1800 Uretheral (Dumont) 1500 Other: Voiding Method Indwelling Catheter # Voids 3 3 1 - Labs CBC & Chem 7: 09/10/18 08:06 09/09/18 07:45 Labs: Abnormal Lab Results - Last 24 Hours (Table) 09/10/18 Range/Units 08:06 RBC 3.57 L (3.80-5.40) m/uL Hgb 10.3 L (11.4-16.0) gm/dL Hct 32.1 L (34.0-46.0) % Plt Count 146 L (150-450) k/uL <LizhakanEdwardo - Last Filed: 09/10/18 20:44> Subjective As above. Patient doing well. Tolerating diet. Hungry for solid food. Loose stools present. Pathology noted. Possible discharge in am. Objective - Vital Signs Vital signs: Vital Signs Temp 98.6 F 09/10/18 16:00 Pulse 75 09/10/18 18:10 Resp 14 09/10/18 18:10 BP 159/72 09/10/18 16:00 Pulse Ox 95 09/10/18 15:00 Intake & Output 09/10/18 09/10/18 09/11/18 06:59 18:59 06:59 Intake Total 125 770 Balance 125 770 Intake: Intake, IV Titration 125 Amount D5-0.45% NaCl with KCl 125 20Meq/l 1,000 ml @ 125 mls/hr IV .Q8H [facility] Rx#: [id number] Oral 770 Other: Voiding Method Toilet # Voids 3 7 - Labs CBC & Chem 7: 09/10/18 08:06 09/10/18 08:06 Labs: Abnormal Lab Results - Last 24 Hours (Table) 09/10/18 09/10/18 Range/Units 08:06 08:06 RBC 3.57 L (3.80-5.40) m/uL Hgb 10.3 L (11.4-16.0) gm/dL Hct 32.1 L (34.0-46.0) % Plt Count 146 L (150-450) k/uL BUN 3 L (7-17) mg/dL Glucose 106 H (74-99) mg/dL Calcium 7.9 L (8.4-10.2) mg/dL Assessment and Plan (1) Colon cancer Current Visit: Yes Status: Acute Code(s): C18.9 - MALIGNANT NEOPLASM OF COLON, UNSPECIFIED SNOMED Code(s): 487107533
[2018-09-10 11:32] LABS: African American GFR (CKD) >90 (>60 ml/min/1.73 sqM); Anion Gap 3 mmol/L; Blood Urea Nitrogen 3 mg/dL (7-17); Calcium 7.9 mg/dL (8.4-10.2); Carbon Dioxide 30 mmol/L (22-30); Chloride 105 mmol/L (98-107); Glucose 106 mg/dL (74-99); Potassium 3.9 mmol/L (3.5-5.1); Sodium 138 mmol/L (137-145)
[2018-09-11] MEDS: D5-0.45% NACL WITH KCL 20MEQ/L 1,000 ML IV SCH ×3 (01:00→19:29)
[2018-09-11] MEDS: LACTATED RINGERS 1,000 ML IV SCH (01:07)
[2018-09-11] MEDS: LEVOTHYROXINE 75 MCG TAB PO SCH (05:17)
[2018-09-11] MEDS: KETOROLAC 30 MG/ML 1 ML VIAL IVP SCH ×4 (05:17→23:25)
[2018-09-11] MEDS: FAMOTIDINE 20 MG/2 ML VIAL IV SCH ×2 (08:04→21:25)
[2018-09-11] MEDS: CARBIDOPA-LEVODOPA 25-100 MG 1 EACH TAB PO SCH ×3 (08:04→21:25)
[2018-09-11] MEDS: HEPARIN SODIUM,PORCINE 5,000 UNIT/ML 1 ML VIAL SQ SCH ×3 (08:04→23:25)
[2018-09-11] MEDS: ALVIMOPAN 12 MG CAPSULE PO SCH (08:04)
[2018-09-11] MEDS: ONDANSETRON 4 MG/2 ML VIAL IVP PRN (08:09)
[2018-09-11 09:08] LABS: Basophils % (A) 0 %; Eosinophils % (A) 1 %; HCT 37.3 % (34.0-46.0); HGB 11.9 gm/dL (11.4-16.0); Lymphocytes # (A) 1.3 k/uL (1.0-4.8); Lymphocytes % (A) 20 %; MCH 28.9 pg (25.0-35.0); MCHC 31.8 g/dL (31.0-37.0); MCV 90.6 fL (80.0-100.0); Mean Platelet Volume 8.6; Monocytes # (A) 0.3 k/uL (0-1.0); Monocytes % (A) 4 %; Neutrophils # (A) 4.7 k/uL (1.3-7.7); Neutrophils % (A) 74 %; Platelet Count 181 k/uL (150-450); RBC 4.12 m/uL (3.80-5.40); RDW 14.4 % (11.5-15.5); WBC 6.3 k/uL (3.8-10.6)
[2018-09-11 09:20] LABS: African American GFR (CKD) >90 (>60 ml/min/1.73 sqM); Anion Gap 8 mmol/L; Blood Urea Nitrogen 2 mg/dL (7-17); Calcium 9.2 mg/dL (8.4-10.2); Carbon Dioxide 30 mmol/L (22-30); Chloride 104 mmol/L (98-107); Glucose 121 mg/dL (74-99); Sodium 142 mmol/L (137-145)
--- NOTE | 2018-09-11 11:41 | P.PN ---
<Flower Kenney A - Last Filed: 09/11/18 11:38> Subjective Progress Note Date: 09/11/18 CHIEF COMPLAINT: Colon cancer HISTORY OF PRESENT ILLNESS: Patient is status post laparoscopic da Bright robotic assisted right colectomy. POD #3. Patient examined this morning. Patient states she doesnt feel as good today compared to yesterday. She reports having some nausea last night after dinner but states it has improved this morning. She had oatmeal for breakfast and tolerated well. She is having loose stools. Patient feels very weak and is not sure if she is ready to be discharged today. PHYSICAL EXAM: VITAL SIGNS: Reviewed. GENERAL: Well-developed in no acute distress. HEENT: No sclera icterus. Extraocular movements grossly intact. Moist buccal mucosa. Head is atraumatic, normocephalic. ABDOMEN: Soft. Nondistended. Mild surgical tenderness. Incision sites clean dry and intact without drainage or signs of infection. NEUROLOGIC: Alert and oriented. Cranial nerves II through XII grossly intact. ASSESSMENT: 1. Colon cancer, status post right colectomy PLAN: 1. Continue current diet 2. Activity as tolerated. PT/OT 3. Pain control. 4. Encourage use of incentive spirometer. 5. Patient feels weak and unsure if she feels ready to be discharged today. Will re-evaluate patient this afternoon for possible discharge. Spoke with patient in depth regarding ECF at discharge. Patient is refusing ECF placement. Nurse practitioner note has been reviewed by physician. Signing provider agrees with the documented findings, assessment, and plan of care. Objective - Vital Signs Vital signs: Vital Signs Temp 98 F 09/11/18 07:00 Pulse 82 09/11/18 08:00 Resp 16 09/11/18 08:00 BP 159/75 09/11/18 07:00 Pulse Ox 100 09/11/18 07:00 Intake & Output 09/10/18 09/11/18 09/11/18 18:59 06:59 18:59 Intake Total 770 1250 Balance 770 1250 Intake: Intake, IV Titration 1250 Amount D5-0.45% NaCl with KCl 1250 20Meq/l 1,000 ml @ 125 mls/hr IV .Q8H [facility] Rx#: [id number] Oral 770 Other: Voiding Method Toilet Toilet # Voids 7 1 - Labs CBC & Chem 7: 09/11/18 08:04 09/11/18 08:04 Labs: Abnormal Lab Results - Last 24 Hours (Table) 09/11/18 Range/Units 08:04 BUN 2 L (7-17) mg/dL Glucose 121 H (74-99) mg/dL <Edwardo Wilkinson - Last Filed: 09/11/18 15:38> Subjective As above. Patient having multiple loose stools. Feels somewhat weaker today compared to before. States it does not necessarily feel like an exacerbation of her Parkinson's. Will stop Entereg and Reglan. Continue diet. Possible discharge tomorrow. Patient not interested in ECF. Objective - Vital Signs Vital signs: Vital Signs Temp 98.6 F 09/11/18 13:30 Pulse 72 09/11/18 13:30 Resp 16 09/11/18 13:30 BP 152/72 09/11/18 13:30 Pulse Ox 98 09/11/18 13:30 Intake & Output 09/10/18 09/11/18 09/11/18 18:59 06:59 18:59 Intake Total 770 1250 140 Balance 770 1250 140 Intake: Intake, IV Titration 1250 140 Amount D5-0.45% NaCl with KCl 1250 20Meq/l 1,000 ml @ 125 mls/hr IV .Q8H [facility] Rx#: [id number] Lactated Ringers 1,000 ml 140 @ 20 mls/hr IV .Q24H [facility] Rx#:[id number] Oral 770 Other: Voiding Method Toilet Toilet # Voids 7 1 - Labs CBC & Chem 7: 09/11/18 08:04 09/11/18 08:04 Labs: Abnormal Lab Results - Last 24 Hours (Table) 09/11/18 Range/Units 08:04 BUN 2 L (7-17) mg/dL Glucose 121 H (74-99) mg/dL Assessment and Plan (1) Colon cancer Current Visit: Yes Status: Acute Code(s): C18.9 - MALIGNANT NEOPLASM OF COLON, UNSPECIFIED SNOMED Code(s): 481707922
--- NOTE | 2018-09-11 13:37 | P.PN ---
Subjective Progress Note Date: 09/11/18 This is a 78-year-old female patient of Dr. Evans. Patient presented for an elective laproscopic Da Bright assisted right colectomy with intracorporeal anastomosis with Dr. tellez for right-sided colon cancer. 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 Patient has past medical history of coronary artery disease, Parkinson's disorder, hypertension, arthritis, thyroid disorder and colitis. Patient is currently postop day 1. Patient is currently resting comfortably in bed. This time patient denies any chest pain or shortness of breath. Patient denies any nausea vomiting or diarrhea. Patient denies any urinary burning or frequency. Patient currently on clear liquid diet. On 09/10/2018 patient is alert and oriented 3 resting comfortably in chair. Dumont catheter has been removed per surgical services. At that time patient maintained on clear liquid diet. Possible advancement of diet per surgical services. Patient denies any chest pain or shortness of breath. Patient denies any nausea vomiting or diarrhea. Patient denies any urinary burning or frequency. On 09/11/2017 patient is alert and oriented 3 currently resting in bed. Patient is currently maintained on low fiber diet. Patient does reports she had some abdominal discomfort with increasing of diet last night. Patient denies any chest pain or shortness of breath. Patient denies nausea or vomiting. Patient is complaining of loose stools last night. Patient denies any urinary burning or frequency. Objective - Vital Signs Vital signs: Vital Signs Temp 98 F 09/11/18 07:00 Pulse 82 09/11/18 08:00 Resp 16 09/11/18 08:00 BP 159/75 09/11/18 07:00 Pulse Ox 100 09/11/18 07:00 Intake & Output 09/10/18 09/11/18 09/11/18 18:59 06:59 18:59 Intake Total 770 1250 Balance 770 1250 Intake: Intake, IV Titration 1250 Amount D5-0.45% NaCl with KCl 1250 20Meq/l 1,000 ml @ 125 mls/hr IV .Q8H [facility] Rx#: [id number] Oral 770 Other: Voiding Method Toilet Toilet # Voids 7 1 - Exam Head normocephalic Neck supple Lungs clear to auscultation bilaterally no wheezing or crackles Heart regular rate and rhythm S1-S2, no rub or gallop Abdomen is soft nontender, hypoactive bowel sounds. 5 incisional sites noted. Extremities no edema Neuro alert and orientated to 3 - Labs CBC & Chem 7: 09/11/18 08:04 09/11/18 08:04 Labs: Abnormal Lab Results - Last 24 Hours (Table) 09/11/18 Range/Units 08:04 BUN 2 L (7-17) mg/dL Glucose 121 H (74-99) mg/dL Assessment and Plan Assessment: 1. status post da Bright-assisted laparoscopic right colectomy for right colon cancer with Dr. tellez. Postop day 3. Patient maintained on low fiber diet 2. Right colon cancer. Colonoscopy and biopsies performed on 07/23/2018 positive for invasive moderate to poorly differentiated adenocarcinoma 3. History of Parkinson's disease home medications resumed 4. Hypothyroidism. Synthroid resumed 5. History of osteoarthritis 6. History of essential hypertension 7. History of coronary artery disease 8. Expected acute blood loss anemia secondary to surgery. Hemoglobin 10.3. hemoGlobin improving to 11.9 DVT prophylaxis heparin. GI prophylaxis Pepcid Thank you for this consultation we will continue to follow patient closely throughout stay I performed an examination of the patient and discussed their management with the Nurse Practitioner. I have reviewed the Nurse Practitioner's notes and agree with the documented findings and plan of care
[2018-09-12] MEDS: D5-0.45% NACL WITH KCL 20MEQ/L 1,000 ML IV SCH ×2 (01:21→08:18)
[2018-09-12] MEDS: LACTATED RINGERS 1,000 ML IV SCH (01:21)
[2018-09-12 01:28] VITALS: TEMP 98.5
[2018-09-12] MEDS: KETOROLAC 30 MG/ML 1 ML VIAL IVP SCH ×2 (05:20→13:26)
[2018-09-12] MEDS: LEVOTHYROXINE 75 MCG TAB PO SCH (05:20)
[2018-09-12 08:18] LABS: Basophils % (A) 0 %; Eosinophils % (A) 1 %; HCT 33.5 % (34.0-46.0); HGB 10.7 gm/dL (11.4-16.0); Lymphocytes % (A) 20 %; MCH 28.4 pg (25.0-35.0); MCHC 31.8 g/dL (31.0-37.0); MCV 89.4 fL (80.0-100.0); Mean Platelet Volume 7.9; Monocytes # (A) 0.3 k/uL (0-1.0); Monocytes % (A) 5 %; Neutrophils # (A) 3.6 k/uL (1.3-7.7); Neutrophils % (A) 73 %; Platelet Count 173 k/uL (150-450); RBC 3.75 m/uL (3.80-5.40); RDW 13.7 % (11.5-15.5)
[2018-09-12 08:33] LABS: ALT 9 U/L (9-52); AST 15 U/L (14-36); African American GFR (CKD) >90 (>60 ml/min/1.73 sqM); Albumin 3.2 g/dL (3.5-5.0); Alkaline Phosphatase 62 U/L (38-126); Anion Gap 6 mmol/L; Blood Urea Nitrogen 11 mg/dL (7-17); Carbon Dioxide 30 mmol/L (22-30); Chloride 103 mmol/L (98-107); Glucose 97 mg/dL (74-99); Potassium 4.2 mmol/L (3.5-5.1); Sodium 139 mmol/L (137-145); Total Bilirubin 0.4 mg/dL (0.2-1.3); Total Protein 5.5 g/dL (6.3-8.2)
[2018-09-12] MEDS: HEPARIN SODIUM,PORCINE 5,000 UNIT/ML 1 ML VIAL SQ SCH (08:38)
[2018-09-12] MEDS: CARBIDOPA-LEVODOPA 25-100 MG 1 EACH TAB PO SCH (08:38)
[2018-09-12] MEDS: FAMOTIDINE 20 MG/2 ML VIAL IV SCH (08:38)
[2018-09-12 08:39] VITALS: BP 151/76; PULSE 66; RESP 16
--- NOTE | 2018-09-12 10:03 | P.DS ---
<PablitoFlower Sunita - Last Filed: 09/12/18 10:00> Providers Expected date of discharge: 09/12/18 Hospital Course: 78-year-old female who underwent laparoscopic da Bright robotic assisted right colectomy on 09/08/2018. Patient is doing well postoperatively without any immediate complications. She is tolerating diet without nausea or vomiting. Her pain is controlled on oral medications. Her vital signs have been stable. The patient remains weak and has worked with physical therapy during hospitalization. ECF discussed with patient on multiple occasions but patient and refuse ECF at discharge. The patient is stable for discharge home today. Please see EMR for further hospital course details. Discharge diagnosis: 1. Colon cancer, status post right colectomy Nurse practitioner note has been reviewed by physician. Signing provider agrees with the documented findings, assessment, and plan of care. Patient Condition at Discharge: Fair Plan - Discharge Summary Discharge Rx Participant: Yes New Discharge Prescriptions: New Hydrocodone/Acetaminophen [Alborn 5-325] 1 tab PO Q4HR PRN 3 Days #18 tab PRN Reason: Pain Continue Carbidopa-Levodopa 25-100 mg [Sinemet 25-100 mg] 1 tab PO TID Levothyroxine Sodium [Synthroid] 75 mcg PO DAILY Discharge Medication List Carbidopa-Levodopa 25-100 mg [Sinemet 25-100 mg] 1 tab PO TID 07/22/18 [History] Levothyroxine Sodium [Synthroid] 75 mcg PO DAILY 09/08/18 [History] Hydrocodone/Acetaminophen [Alborn 5-325] 1 tab PO Q4HR PRN 3 Days #18 tab 09/12/18 [Rx] Follow up Appointment(s)/Referral(s): Edwardo Wilkinson MD [Medical Doctor] - 09/17/18 3:45 pm Danyelle Reid MD [REFERRING] - 1 Week Activity/Diet/Wound Care/Special Instructions: No driving while taking Alborn No lifting over 10 pounds You may shower. No soaking or tub baths Very light activity until you are reevaluated at your follow up appointment with your surgeon <Edwardo Wilkinson - Last Filed: 09/12/18 15:25> Providers Date of admission: 09/08/18 08:57 Attending physician: Edwardo Wilkinson Consults: 06/24/19 14:55 Consult Physician Routine Consulting Provider: Sorin Bryan Consult Reason/Comments: Medical management Do you want consulting provider notified?: Yes Primary care physician: Stated None - Discharge Diagnosis(es) (1) Colon cancer Current Visit: Yes Status: Acute Hospital Course: As above. Patient doing well. Tolerating diet at this time. Denies any significant discomfort. We'll discharge. Outpatient follow-up one week.
--- NOTE | 2018-09-12 11:29 | P.PN ---
Subjective Progress Note Date: 09/12/18 This is a 78-year-old female patient of Dr. Evnas. Patient presented for an elective laproscopic Da Bright assisted right colectomy with intracorporeal anastomosis with Dr. tellez for right-sided colon cancer. 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 Patient has past medical history of coronary artery disease, Parkinson's disorder, hypertension, arthritis, thyroid disorder and colitis. Patient is currently postop day 1. Patient is currently resting comfortably in bed. This time patient denies any chest pain or shortness of breath. Patient denies any nausea vomiting or diarrhea. Patient denies any urinary burning or frequency. Patient currently on clear liquid diet. On 09/10/2018 patient is alert and oriented 3 resting comfortably in chair. Dumont catheter has been removed per surgical services. At that time patient maintained on clear liquid diet. Possible advancement of diet per surgical services. Patient denies any chest pain or shortness of breath. Patient denies any nausea vomiting or diarrhea. Patient denies any urinary burning or frequency. On 09/11/2017 patient is alert and oriented 3 currently resting in bed. Patient is currently maintained on low fiber diet. Patient does reports she had some abdominal discomfort with increasing of diet last night. Patient denies any chest pain or shortness of breath. Patient denies nausea or vomiting. Patient is complaining of loose stools last night. Patient denies any urinary burning or frequency. On 09/12/2018 patient is alert and oriented 3. Patient feels much improved. Patient denies any abdominal discomfort. Patient reports she has been tolerati ng diet. Patient has remained afebrile. CBC and CMP reviewed. Patient has refused ECF placement planning to be DC'd home today with . At this time patient denies chest pain or shortness of breath. Patient denies nausea vomiting or diarrhea. Patient denies any urinary burning or frequency. Anticipate discharge home today per surgical services. Objective - Vital Signs Vital signs: Vital Signs Temp 98.5 F 09/12/18 07:13 Pulse 66 09/12/18 07:13 Resp 16 09/12/18 07:13 BP 151/76 09/12/18 07:13 Pulse Ox 97 09/12/18 07:13 Intake & Output 09/11/18 09/12/18 09/12/18 18:59 06:59 18:59 Intake Total 140 680 960 Balance 140 680 960 Weight 52.163 kg Intake: Intake, IV Titration 140 200 Amount D5-0.45% NaCl with KCl 200 20Meq/l 1,000 ml @ 125 mls/hr IV .Q8H [facility] Rx#: [id number] Lactated Ringers 1,000 ml 140 @ 20 mls/hr IV .Q24H [facility] Rx#:[id number] Oral 480 960 Other: Voiding Method Toilet # Voids 1 - Exam Head normocephalic Neck supple Lungs clear to auscultation bilaterally no wheezing or crackles Heart regular rate and rhythm S1-S2, no rub or gallop Abdomen is soft nontender, hypoactive bowel sounds. 5 incisional sites noted. Extremities no edema Neuro alert and orientated to 3 - Labs CBC & Chem 7: 09/12/18 07:29 09/12/18 07:29 Labs: Abnormal Lab Results - Last 24 Hours (Table) 09/12/18 09/12/18 Range/Units 07:29 07:29 RBC 3.75 L (3.80-5.40) m/uL Hgb 10.7 L (11.4-16.0) gm/dL Hct 33.5 L (34.0-46.0) % Total Protein 5.5 L (6.3-8.2) g/dL Albumin 3.2 L (3.5-5.0) g/dL Assessment and Plan Assessment: 1. status post da Bright-assisted laparoscopic right colectomy for right colon cancer with Dr. tellez. Postop day 4. Patient maintained on low fiber diet 2. Right colon cancer. Colonoscopy and biopsies performed on 07/23/2018 positive for invasive moderate to poorly differentiated adenocarcinoma 3. History of Parkinson's disease home medications resumed 4. Hypothyroidism. Synthroid resumed 5. History of osteoarthritis 6. History of essential hypertension 7. History of coronary artery disease 8. Expected acute blood loss anemia secondary to surgery. Hemoglobin 10.3. h emoGlobin improving to 11.9 DVT prophylaxis heparin. GI prophylaxis Pepcid Thank you for this consultation we will continue to follow patient closely throughout stay Patient has refused ECF placement. Patient planning to be DC'd home with . Anticipate discharge today per surgical services I performed an examination of the patient and discussed their management with the Nurse Practitioner. I have reviewed the Nurse Practitioner's notes and agree with the documented findings and plan of care
== END 2018-09-12 15:51 | disposition home or self-care (01) | DRG 330 ==
LOC: 2ORMAIN 08:57 → 4SSUR 14:53
PROVIDERS: ADMIT Surgery; ATTEND Surgery
PROC: 8E0W4CZ Robotic Assisted Procedure of Trunk Region, Percutaneous Endoscopic Approach (ICD-10-PCS; 2018-09-08)
PROC: 0DTK4ZZ Resection of Ascending Colon, Percutaneous Endoscopic Approach (ICD-10-PCS; principal; 2018-09-08 10:50)
DX: C18.2 Malignant neoplasm of ascending colon (principal); D62 Acute posthemorrhagic anemia; G20 Parkinson's disease; E03.9 Hypothyroidism, unspecified; I10 Essential (primary) hypertension; I25.10 Atherosclerotic heart disease of native coronary artery without angina pectoris; M19.90 Unspecified osteoarthritis, unspecified site; E78.2 Mixed hyperlipidemia; Z79.890 Hormone replacement therapy; Z79.83 Long term (current) use of bisphosphonates; Z87.11 Personal history of peptic ulcer disease; Z90.710 Acquired absence of both cervix and uterus; Z85.9 Personal history of malignant neoplasm, unspecified; Z88.1 Allergy status to other antibiotic agents; Z88.2 Allergy status to sulfonamides; Z91.018 Allergy to other foods; Z80.49 Family history of malignant neoplasm of other genital organs; Z82.3 Family history of stroke
CPT/HCPCS: 80048; 80053; 85025; 86850; 86900; 86901; 88309

== ENCOUNTER 2020-01-19 08:44 | Day surgery (SDC) | payer MEDICARE ==
[2020-01-18 08:40] VITALS: BMI 19.2
[~2020-01-19 08:44] MED LIST changes: -DEXAMETHASONE SOD PHOSPHATE 10 MG/ML 1 ML VIAL IV ONE; -HEPARIN SODIUM,PORCINE 5,000 UNIT/ML 1 ML VIAL SQ ONE; +LACTATED RINGERS 1,000 ML IV SCH; -LIDOCAINE 1% 20 ML VIAL (10MG/ML) FOR IV START INTRADERMA PRN; -MIDAZOLAM 2 MG/2 ML VIAL IV PRN; -ONDANSETRON 4 MG/2 ML VIAL IVP ONE; -ceFAZolin IN SWFI 2 GM/20 ML SYRINGE IVP ONE; -fentaNYL (PF) 50 MCG/ML 2 ML AMP IV PRN; -metroNIDAZOLE-NS PMX 500 MG in SALINE 1 100ML.BAG IVPB ONE
[2020-01-19 09:14] VITALS: RESP 16; TEMP 98.1
[2020-01-19] MEDS ORDERED: LIDOCAINE 1% (10MG/ML) FOR IV START INTRADERMA ONE (09:24)
[2020-01-19] MEDS ORDERED: PROPOFOL 10 MG/ML 20 ML VIAL IV ONE (10:19)
--- NOTE | 2020-01-19 10:45 | P.PCN ---
Date of Procedure: 01/19/20 Procedure(s) Performed: PREOPERATIVE DIAGNOSIS: History of colon cancer POSTOPERATIVE DIAGNOSIS: Transverse colon polyp 2, diverticulosis PROCEDURE: Colonoscopy snare polypectomy ANESTHESIA: MAC SURGEON: Edwardo Wilkinson M.D. SPECIMENS: Transverse colon polyps ENDOSCOPIC PROCEDURE: The patient was placed on the endoscopy table in the left decubitus position. The Olympus colonoscope was inserted into the anus and passed under direct visualization to the ileocolonic anastomosis. From that point the scope was slowly withdrawn inspecting all surfaces carefully. There were 2 small polyps in the transverse colon both removed using the snare with cautery technique. The remainder of the descending sigmoid and rectum appeared normal. There was mild left-sided diverticulosis. Digital rectal examination was normal. The patient was taken to the recovery room in stable condition per anesthesia guidelines. RECOMMENDATIONS: Resume diet. Follow colonoscopy in 3 years.
[2020-01-19 11:08] VITALS: BP 158/78; PULSE 57
== END 2020-01-19 11:49 | disposition home or self-care (01) ==
LOC: ORWHC2ENDO 08:44
PROVIDERS: ATTEND Surgery
DX: D12.3 Benign neoplasm of transverse colon (principal); K57.30 Diverticulosis of large intestine without perforation or abscess without bleeding; K52.9 Noninfective gastroenteritis and colitis, unspecified; I25.10 Atherosclerotic heart disease of native coronary artery without angina pectoris; G20 Parkinson's disease; E07.9 Disorder of thyroid, unspecified; M19.90 Unspecified osteoarthritis, unspecified site; Z85.038 Personal history of other malignant neoplasm of large intestine; Z90.49 Acquired absence of other specified parts of digestive tract; Z88.2 Allergy status to sulfonamides; Z91.018 Allergy to other foods; Z79.890 Hormone replacement therapy; Z79.899 Other long term (current) drug therapy; Z90.710 Acquired absence of both cervix and uterus; Z98.890 Other specified postprocedural states
CPT/HCPCS: 88305; 45385; J2704

== ENCOUNTER → 2020-01-26 | Outpatient (CLI) | payer MEDICARE ==
[2020-01-26 14:00] LABS: African American GFR (CKD) >90 (>60 ml/min/1.73 sqM); Blood Urea Nitrogen 13 mg/dL (7-17); Non-African American GFR(CKD) 84 (>60 ml/min/1.73 sqM)
--- NOTE | 2020-01-26 15:55 | CT ---
EXAMINATION TYPE: CT abdomen pelvis w con DATE OF EXAM: 01/25/2019 COMPARISON: 08/01/2018 HISTORY: 79-year-old female personal history of Colon CA TECHNIQUE: Contiguous axial scanning of the abdomen and pelvis following administration of 100 ml Iso diana 300 IV contrast. Delayed images through the kidneys and coronal/sagittal reconstructions perform ed. CT DLP: 493.7 mGycm Automated exposure control for dose reduction was used. FINDINGS: Heart borderline enlarged. No pericardial effusion. Some hazy atelectasis in the lower lungs. No pleu ral effusion. No focal liver lesion seen. Portal venous system is patent. No biliary ductal dilatation. Prominent 4 .5 cm diverticulum of the second portion of the duodenum projecting into the pancreatic head region. Gallbladder, adrenal glands, kidneys, spleen, and pancreas appear within normal limits. No dilated small bowel, free fluid, or free air. Paucity of intra-abdominal fat limiting assessment for lymphadenopathy. No obvious mesenteric or retr operitoneal lymph nodes are seen. Interval postsurgical change of partial right hemicolectomy and ileocolonic anastomosis at near the h epatic flexure. Oral contrast is entering the colon at this level. Mural-based high density probably represents admixture of stool and contrast. Direct visualization as indicated to exclude abnormal mur al based thickening/mass, refer to axial image 43 and coronal image 30. Moderate overall stool burden. Mildly redundant sigmoid colon. No pericolic inflammatory change. Bladder urine distended. Uterus surgically absent. Right ovary is visualized. Left ovary not clearly seen. Numerous pelvic phlebolith. No abnormal fluid collection in the pelvis or pelvic lymphadenopath y. Bones: Mild degenerative change of the hips. Degenerated levoconvex scoliosis thoracolumbar junction. Marked osteopenia. Grade 1 anterolisthesis L3-L4 and L4-L5 with multilevel advanced hypertrophic fac et arthropathy. IMPRESSION: 1. INTERVAL PARTIAL RIGHT HEMICOLECTOMY. ALONG THE PROXIMAL TRANSVERSE COLON, THERE IS SOME MURAL-BAS ED HIGH DENSITY PROBABLY REPRESENTING ADMIXTURE OF STOOL AND CONTRAST (AXIAL IMAGE 43 AND CORONAL WAI GE 30). DIRECT VISUALIZATION INDICATED TO EXCLUDE ABNORMAL MURAL BASED THICKENING/MASS. 2. MODERATE STOOL BURDEN. 3. OTHERWISE, NO EVIDENCE FOR METASTATIC DISEASE.
== END | disposition home or self-care (01) ==
LOC: RADCTMAIN 12:46
PROVIDERS: ATTEND Surgery
DX: Z08 Encounter for follow-up examination after completed treatment for malignant neoplasm (principal); K63.89 Other specified diseases of intestine; R19.5 Other fecal abnormalities; Z90.49 Acquired absence of other specified parts of digestive tract; Z85.038 Personal history of other malignant neoplasm of large intestine
CPT/HCPCS: 82565; 84520; 74177; 36415; Q9967

== ENCOUNTER 2020-04-06 16:54 | Inpatient (IN) | payer MEDICARE ==
[2020-04-06 18:06] LABS: ALT 12 U/L (4-34); AST 20 U/L (14-36); African American GFR (CKD) >90 (>60 ml/min/1.73 sqM); Albumin 3.6 g/dL (3.5-5.0); Alkaline Phosphatase 101 U/L (38-126); Anion Gap 3 mmol/L; Blood Urea Nitrogen 16 mg/dL (7-17); Calcium 8.8 mg/dL (8.4-10.2); Carbon Dioxide 30 mmol/L (22-30); Chloride 102 mmol/L (98-107); Creatine Kinase 46 U/L (30-135); Glucose 102 mg/dL (74-99); Magnesium 2.1 mg/dL (1.6-2.3); Non-African American GFR(CKD) 88 (>60 ml/min/1.73 sqM); Potassium 4.4 mmol/L (3.5-5.1); Sodium 135 mmol/L (137-145); Total Bilirubin 0.4 mg/dL (0.2-1.3); Total Protein 6.3 g/dL (6.3-8.2)
[2020-04-06 18:12] LABS: C Reactive Protein <5.0 mg/L (<10.0)
--- NOTE | 2020-04-06 18:24 | XR ---
EXAMINATION TYPE: XR chest 2V DATE OF EXAM: 04/06/2020 COMPARISON: 05/02/2017 HISTORY: Fatigue frequent falls. TECHNIQUE: FINDINGS: There is no heart failure nor confluent pneumonic infiltrate. Heart size is normal. There a re no hilar masses. Bony thorax is intact. Costophrenic angles are clear. IMPRESSION: No active cardiopulmonary disease. No significant change.
--- NOTE | 2020-04-06 18:26 | XR ---
EXAMINATION TYPE: XR pelvis AP view DATE OF EXAM: 04/06/2020 COMPARISON: 08/03/2017 HISTORY: Frequent falls. Pressure sores. TECHNIQUE: Single view FINDINGS: Pelvic ring is intact. Proximal femurs are intact. There is vascular calcification. Sacroil iac joints appear intact. There are spondylotic changes in the lower lumbar spine. Hip joint spaces a re fairly normal. IMPRESSION: Negative exam. No fracture seen. No focal bone destruction.
[2020-04-06 18:30] LABS: Appearance,Urine Cloudy (Clear); Bacteria,Urine Few /hpf; Bilirubin,Urine Negative (Negative); Blood,Urine Moderate (Negative); Budding Yeast,Urine Occasional /hpf; Color,Urine Yellow; Glucose,Urine (UA) Negative (Negative); Ketones,Urine Negative (Negative); Leukocyte Esterase,Urine Moderate (Negative); Mucus,Urine Rare /hpf; Nitrite,Urine Negative (Negative); Protein,Urine Trace (Negative); RBC,Urine 11 /hpf (0-5); Specific Gravity,Urine 1.024 (1.001-1.035); Squamous Epithelial Cell,Urine 16 /hpf (0-4); Urobilinogen,Urine <2.0 mg/dL (<2.0); WBC,Urine 11 /hpf (0-5)
--- NOTE | 2020-04-06 18:49 | ED ---
Wound/Laceration HPI - General Chief Complaint: Wound/Laceration Stated Complaint: Wound on buttocks Time Seen by Provider: 04/06/20 17:07 Source: patient, RN notes reviewed Mode of arrival: ambulatory Limitations: no limitations - History of Present Illness Initial Comments: This is a 79-year-old female who was sent in by her primary care doctor for ev aluation. Patient has had frequent falls recently she does use a walker. She was found on examining office after reporting there because of complaints of rectal bleeding to have decubitus ulceration more so on the right than left buttock. Physical history: Cancer. Patient does have an findings from her doctor of the V/Q his ulcers with localized inflammation. No fevers chills or sweats he does demonstrate some weakness. - Related Data Home Medications Medication Instructions Recorded Confirmed Carbidopa-Levodopa 25-100 mg 0.5 tab PO BID@0600,1200 07/22/18 04/06/20 [Sinemet 25-100 mg] Levothyroxine Sodium [Synthroid] 75 mcg PO DAILY 09/08/18 04/06/20 Allergies Allergy/AdvReac Type Severity Reaction Status Date / Time strawberry Allergy Rash/Hives Verified 04/06/20 18:42 sulfamethoxazole Allergy Rash/Hives Verified 04/06/20 18:42 [From Bactrim] trimethoprim [From Bactrim] Allergy Rash/Hives Verified 04/06/20 18:42 chocolate flavor AdvReac Nausea & Verified 04/06/20 18:42 Vomiting Review of Systems ROS Statement: Those systems with pertinent positive or pertinent negative responses have been documented in the HPI. ROS Other: All systems not noted in ROS Statement are negative. Past Medical History Past Medical History: Coronary Artery Disease (CAD), Cancer, Osteoarthritis (OA), Thyroid Disorder Additional Past Medical History / Comment(s): COLON CANCER 2019, Parkinson's, hx gastric ulcers,colitis, arthritis. FREQUENT FALLS[place]STAT[place] FELL THREE TIMES LAST WEEK. BALANCE OFF. History of Any Multi-Drug Resistant Organisms: None Reported Past Surgical History: Bowel Resection, Hysterectomy, Orthopedic Surgery Additional Past Surgical History / Comment(s): arthroscopy lt knee. THYROIDECTOMY. COLONOSCOPY Past Anesthesia/Blood Transfusion Reactions: No Reported Reaction Additional Past Anesthesia/Blood Transfusion Reaction / Comment(s): no hx blood transfusion Past Psychological History: No Psychological Hx Reported Smoking Status: Never smoker - Past Family History Father Additional Family Medical History / Comment(s): Black lung and ETOH Mother Family Medical History: Cancer, CVA/TIA Additional Family Medical History / Comment(s): Uterine CA General Exam - General Exam Comments Initial Comments: This a well-developed asthenic appearing female who is awake alert oriented 3 Limitations: no limitations General appearance: alert, in no apparent distress Head exam: Present: atraumatic, normocephalic, normal inspection Eye exam: Present: normal appearance, PERRL, EOMI. Absent: scleral icterus, conjunctival injection, periorbital swelling ENT exam: Present: mucous membranes dry Neck exam: Present: normal inspection. Absent: tenderness, meningismus, lymphadenopathy Respiratory exam: Present: normal lung sounds bilaterally. Absent: respiratory distress, wheezes, rales, rhonchi, stridor Cardiovascular Exam: Present: regular rate, normal rhythm, normal heart sounds. Absent: systolic murmur, diastolic murmur, rubs, gallop, clicks GI/Abdominal exam: Present: soft, normal bowel sounds. Absent: distended, tenderness, guarding, rebound, rigid Rectal exam: Present: other (Examination the perineum and buttock area reveals a stage II to 3 decubitus ulcer more swelling right than the left approximately 1/2% total by surface area.) Extremities exam: Present: normal inspection, full ROM, normal capillary refill. Absent: tenderness, pedal edema, joint swelling, calf tenderness Back exam: Present: normal inspection Neurological exam: Present: alert, oriented X3, CN II-XII intact Psychiatric exam: Present: normal affect, normal mood Skin exam: Present: warm, dry, intact, normal color. Absent: rash Course Vital Signs 04/06/20 16:55 Temperature 97.7 F Pulse Rate 62 Respiratory 16 Rate O2 Sat by Pulse 97 Oximetry Medical Decision Making - Medical Decision Making I did discuss case with patient family initially also with Dr. Evans and later with Dr. Mathews. Patient be admitted for inpatient evaluation and treatment - Lab Data Result diagrams: 04/06/20 17:40 Lab Results 04/06/20 04/06/20 04/06/20 Range/Units 17:40 17:40 17:40 Sodium 135 L (137-145) mmol/L Potassium 4.4 (3.5-5.1) mmol/L Chloride 102 (98-107) mmol/L Carbon Dioxide 30 (22-30) mmol/L Anion Gap 3 mmol/L BUN 16 (7-17) mg/dL Creatinine 0.61 (0.52-1.04) mg/dL Est GFR (CKD-EPI)AfAm >90 (>60 ml/min/1.73 sqM) Est GFR (CKD-EPI)NonAf 88 (>60 ml/min/1.73 sqM) Glucose 102 H (74-99) mg/dL Plasma Lactic Acid Robin 1.2 (0.7-2.0) mmol/L Calcium 8.8 (8.4-10.2) mg/dL Magnesium 2.1 (1.6-2.3) mg/dL Total Bilirubin 0.4 (0.2-1.3) mg/dL AST 20 (14-36) U/L ALT 12 (4-34) U/L Alkaline Phosphatase 101 (38-126) U/L Creatine Kinase 46 (30-135) U/L Troponin I <0.012 (0.000-0.034) ng/mL C-Reactive Protein <5.0 (<10.0) mg/L Total Protein 6.3 (6.3-8.2) g/dL Albumin 3.6 (3.5-5.0) g/dL Urine Color Urine Appearance (Clear) Urine pH (5.0-8.0) Ur Specific [place] (1.001-1.035) Urine Protein (Negative) Urine Glucose (UA) (Negative) Urine Ketones (Negative) Urine Blood (Negative) Urine Nitrite (Negative) Urine Bilirubin (Negative) Urine Urobilinogen (<2.0) mg/dL Ur Leukocyte Esterase (Negative) Urine RBC (0-5) /hpf Urine WBC (0-5) /hpf Ur Squamous Epith Cells (0-4) /hpf Urine Bacteria (None) /hpf Urine Mucus (None) /hpf Urine Yeast (Budding) (None) /hpf 04/06/20 Range/Units 18:19 Sodium (137-145) mmol/L Potassium (3.5-5.1) mmol/L Chloride (98-107) mmol/L Carbon Dioxide (22-30) mmol/L Anion Gap mmol/L BUN (7-17) mg/dL Creatinine (0.52-1.04) mg/dL Est GFR (CKD-EPI)AfAm (>60 ml/min/1.73 sqM) Est GFR (CKD-EPI)NonAf (>60 ml/min/1.73 sqM) Glucose (74-99) mg/dL Plasma Lactic Acid Robin (0.7-2.0) mmol/L Calcium (8.4-10.2) mg/dL Magnesium (1.6-2.3) mg/dL Total Bilirubin (0.2-1.3) mg/dL AST (14-36) U/L ALT (4-34) U/L Alkaline Phosphatase (38-126) U/L Creatine Kinase (30-135) U/L Troponin I (0.000-0.034) ng/mL C-Reactive Protein (<10.0) mg/L Total Protein (6.3-8.2) g/dL Albumin (3.5-5.0) g/dL Urine Color Yellow Urine Appearance Cloudy H (Clear) Urine pH 7.0 (5.0-8.0) Ur Specific [place] 1.024 (1.001-1.035) Urine Protein Trace H (Negative) Urine Glucose (UA) Negative (Negative) Urine Ketones Negative (Negative) Urine Blood Moderate H (Negative) Urine Nitrite Negative (Negative) Urine Bilirubin Negative (Negative) Urine Urobilinogen <2.0 (<2.0) mg/dL Ur Leukocyte Esterase Moderate H (Negative) Urine RBC 11 H (0-5) /hpf Urine WBC 11 H (0-5) /hpf Ur Squamous Epith Cells 16 H (0-4) /hpf Urine Bacteria Few H (None) /hpf Urine Mucus Rare H (None) /hpf Urine Yeast (Budding) Occasional H (None) /hpf - EKG Data -: EKG Interpreted by Me EKG shows normal: sinus rhythm EKG Comments: Sinus rhythm rate 65. Interval 174 QRS duration 76 daily since QTC 46/[address]-T wave abnormality - Radiology Data Radiology results: report reviewed (I did review the imaging and report no acute findings.), image reviewed Disposition Clinical Impression: Decubitus skin ulcer, Failure to thrive in adult, Frequent falls Disposition: ADMITTED IP TO THIS [facility] Condition: Fair Referrals: Danyelle Reid MD [Primary Care Provider] - 1-2 days
[2020-04-06] MEDS ORDERED: NALOXONE 0.4 MG/ML 1 ML VIAL IV PRN (19:33)
[2020-04-06 19:54] LABS: Basophils % (A) 1 %; Eosinophils # (A) 0.1 k/uL (0-0.7); Eosinophils % (A) 2 %; HCT 36.9 % (34.0-46.0); HGB 12.8 gm/dL (11.4-16.0); Lymphocytes # (A) 1.6 k/uL (1.0-4.8); Lymphocytes % (A) 28 %; MCH 30.3 pg (25.0-35.0); MCHC 34.6 g/dL (31.0-37.0); MCV 87.5 fL (80.0-100.0); Mean Platelet Volume 7.2; Monocytes # (A) 0.3 k/uL (0-1.0); Monocytes % (A) 5 %; Neutrophils # (A) 3.6 k/uL (1.3-7.7); Neutrophils % (A) 63 %; Platelet Count 205 k/uL (150-450); RBC 4.22 m/uL (3.80-5.40); RDW 12.8 % (11.5-15.5); WBC 5.8 k/uL (3.8-10.6)
--- NOTE | 2020-04-06 22:59 | P.HPIM ---
History of Present Illness H&P Date: 04/06/20 The patient is a 79 yo F with a PMH of Parkinson's and hypothyroidism who was sent into the emergency room by her primary care physician due to worsening decubitus ulcers. The patient was a very poor historian and thereby history obtained from the chart. Attempted to contact patient's spouse Juan Antonio May on [phone], with no answer. The patient had reportedly experienced frequent falls. The patient reported that her lower back does hurt when she sits, though was unable to elaborate further. She did deny any additional complaints. She denied chest pain, shortness of of fever, chills, cough, nausea, vomiting, abdominal pain, diarrhea. She lives at home with her . She underwent an extensive evaluation in the emergency room with a pelvic x-ray that was unremarkable. Chest x-ray was also unremarkable. EKG had revealed normal sinus rhythm at 65 bpm. Laboratory evaluation was reviewed. Review of Systems ROS unobtainable: due to mental status Past Medical History Past Medical History: Coronary Artery Disease (CAD), Cancer, Osteoarthritis (OA), Thyroid Disorder Additional Past Medical History / Comment(s): COLON CANCER 2019, Parkinson's, hx gastric ulcers,colitis, arthritis. FREQU[place] FELL THREE TIMES LAST WEEK. BALANCE OFF. History of Any Multi-Drug Resistant Organisms: None Reported Past Surgical History: Bowel Resection, Hysterectomy, Orthopedic Surgery Additional Past Surgical History / Comment(s): arthroscopy lt knee. THYROIDECTOMY. COLONOSCOPY Past Anesthesia/Blood Transfusion Reactions: No Reported Reaction Additional Past Anesthesia/Blood Transfusion Reaction / Comment(s): no hx blood transfusion Past Psychological History: No Psychological Hx Reported Smoking Status: Never smoker - Past Family History Father Additional Family Medical History / Comment(s): Black lung and ETOH Mother Family Medical History: Cancer, CVA/TIA Additional Family Medical History / Comment(s): Uterine CA Medications and Allergies Home Medications Medication Instructions Recorded Confirmed Type Carbidopa-Levodopa 25-100 mg 0.5 tab PO BID@0600,1200 07/22/18 04/06/20 History [Sinemet 25-100 mg] Levothyroxine Sodium [Synthroid] 75 mcg PO DAILY 09/08/18 04/06/20 History Allergies Allergy/AdvReac Type Severity Reaction Status Date / Time strawberry Allergy Rash/Hives Verified 04/06/20 18:42 sulfamethoxazole Allergy Rash/Hives Verified 04/06/20 18:42 [From Bactrim] trimethoprim [From Bactrim] Allergy Rash/Hives Verified 04/06/20 18:42 chocolate flavor AdvReac Nausea & Verified 04/06/20 18:42 Vomiting Physical Exam Vitals: Vital Signs Temp Pulse Resp Pulse Ox 04/06/20 16:55 97.7 F 62 16 97 Intake and Output 04/06/20 04/06/20 04/06/20 06:59 14:59 22:59 Other: Weight 52.163 kg General: Masked facies, non toxic, no distress, appears at stated age, normal weight Derm: Large decubitus ulcer stage III in the gluteal folds, no unusual ecchym oses, warm, dry Head: atraumatic, normocephalic, symmetric Eyes: EOMI, no lid lag, anicteric sclera, pupils equal round reactive to light ENT: Nose and ears atraumatic, no thrush, no pharyngeal erythema Neck: No thyromegaly, no cervical lymphadenopathy, trachea midline, supple Mouth: no lip lesion, mucus membranes moist Cardiovascular: S1S2 reg, no murmur, positive posterior tibial pulse bilateral, 1+ bilateral lower extremity pitting edema, capillary refill less than 2 seconds Lungs: CTA bilateral, no rhonchi, no rales , no accessory muscle use Abdominal: soft, nontender to palpation, no guarding, no appreciable organomegaly, normal bowel sounds Ext: no gross muscle atrophy, muscle strength 5 out of 5 in all 4 extremities grossly, cogwheel rigidity bilateral upper extremities, no contractures Neuro: CN II-XI grossly intact, light touch intact all 4 extremities Psych: Alert, oriented to person, knows that she is in a hospital but unable to name it, not oriented to time Results CBC & Chem 7: 04/06/20 19:47 04/06/20 17:40 Labs: Abnormal Lab Results - Last 24 Hours (Table) 04/06/20 04/06/20 Range/Units 17:40 18:19 Sodium 135 L (137-145) mmol/L Glucose 102 H (74-99) mg/dL Urine Appearance Cloudy H (Clear) Urine Protein Trace H (Negative) Urine Blood Moderate H (Negative) Ur Leukocyte Esterase Moderate H (Negative) Urine RBC 11 H (0-5) /hpf Urine WBC 11 H (0-5) /hpf Ur Squamous Epith Cells 16 H (0-4) /hpf Urine Bacteria Few H (None) /hpf Urine Mucus Rare H (None) /hpf Urine Yeast (Budding) Occasional H (None) /hpf Assessment and Plan Plan: Large decubitus ulcer -Wound care consult Altered mentation -Emergency room RN notes that she was told this is similar to patient's baseline -Attempt to receive more information Chronic conditions: Hypothyroidism, Parkinson's -Continue with home medications DVT prophylaxis -heparin subq The patient is admitted with an anticipated greater than 2 midnight stay for evaluation of decubitis CODE STATUS: Full Code Discussed with: Patient Anticipated discharge date: 04/[address]: Home A total of 35 minutes was spent on the care of this complex patient more than 50% of the time was spent in counseling and care coordination.
[2020-04-07] MEDS: SODIUM CHLORIDE 0.9% 1,000 ML IV SCH ×3 (00:48→23:31)
[2020-04-07] MEDS: CARBIDOPA-LEVODOPA 25-100 MG 1 EACH TAB PO SCH ×2 (05:53→08:51)
[2020-04-07] MEDS: LEVOTHYROXINE 75 MCG TAB PO SCH (05:53)
[2020-04-07] MEDS: HEPARIN SODIUM,PORCINE 5,000 UNIT/ML 1 ML VIAL SQ SCH ×3 (08:52→23:30)
--- NOTE | 2020-04-07 10:33 | P.PN ---
Subjective Progress Note Date: 04/07/20 Principal diagnosis: coccyx ulcer Patient is a 79-year-old female with Parkinson's disease and 6 falls over the last 3 days, hypothyroidism, gastric ulcers, and coccyx pressure ulcer who was sent to the emergency department by her primary care physician Dr. Reid secondary to worsening of her ulcer. On arrival to the ER her vital signs were within normal limits. Laboratory analysis showed sodium of 135 but was otherwise unremarkable. She underwent a chest x-ray which showed no acute process, she underwent a pelvic x-ray which was negative for any signs of fracture or focal bone destruction. She was subsequently admitted for further management of her coccyx wound and frequent falls. Patient denies any difficulty in swallowing. She has been eating and drinking well. Patient seen and examined at bedside. She reports that she has fallen 6 times over the last 3 days. She believes it is secondary to her Parkinson's disease. She feels that her current dose of Sinemet is not helping. She had an appointment to establish with Dr. Bustamante the neurologist today she was unhappy with the care of her prior neurologist. She denies any pain currently. She was having some neck pain after one of her falls but this has since resolved. We discussed the option of rehab due to her recurrent falls versus home with home health care. She states she does not want rehab and feels that her can continue to help her. She is also concerned because he gets very anxious and she is not at home. General: non toxic, no distress, appears at stated age Derm: Coccyx ulcer with blue purple discolorationno blanching, no subcutaneous tissue exposed, bruising sacral level Head: atraumatic, normocephalic, symmetric Eyes: EOMI, no lid lag, anicteric sclera Mouth: no lip lesion, mucus membranes moist Cardiovascular: S1S2 reg, no murmur, positive posterior tibial pulse bilateral, Lungs: CTA bilateral, no rhonchi, no rales , no accessory muscle use Abdominal: soft, nontender to palpation, no guarding, no appreciable organomegaly Ext: no gross muscle atrophy, no edema, no contractures Neuro: CN II-XI grossly intact, no tremors noted, slowed movements, masked facies,hypophonia Psych: Alert, oriented X 3, appropriate affect Assessment: Coccygeal wound Frequent falls Parkinson's disease Hypothyroidism Plan: Patient does not want to go to rehab at this time and feels as though she can manage at home with home health. She is anxious to get a new appointment set up with her neurologist Dr. Bustamante regarding changing of her medications for her Parkinson's disease. She will be evaluated by physical and occupational therapy regarding her falls and safety. She'll be evaluated by the wound care nurse practitioner regarding appropriate treatment of the coccygeal ulcer. Likely home this afternoon or early tomorrow morning pending clinical course. Objective - Vital Signs Vital signs: Vital Signs Temp 98.3 F 04/07/20 05:00 Pulse 74 04/07/20 05:00 Resp 14 04/07/20 07:06 BP 135/67 04/07/20 05:00 Pulse Ox 94 L 04/07/20 05:00 Intake & Output 04/06/20 04/07/20 04/07/20 18:59 06:59 18:59 Weight 52.163 kg Other: Voiding Method Toilet # Voids 1 # Bowel Movements 0 0 - Labs CBC & Chem 7: 04/06/20 19:47 04/06/20 17:40 Labs: Abnormal Lab Results - Last 24 Hours (Table) 04/06/20 04/06/20 Range/Units 17:40 18:19 Sodium 135 L (137-145) mmol/L Glucose 102 H (74-99) mg/dL Urine Appearance Cloudy H (Clear) Urine Protein Trace H (Negative) Urine Blood Moderate H (Negative) Ur Leukocyte Esterase Moderate H (Negative) Urine RBC 11 H (0-5) /hpf Urine WBC 11 H (0-5) /hpf Ur Squamous Epith Cells 16 H (0-4) /hpf Urine Bacteria Few H (None) /hpf Urine Mucus Rare H (None) /hpf Urine Yeast (Budding) Occasional H (None) /hpf Microbiology - Last 24 Hours (Table) 04/06/20 18:19 Urine Culture - Preliminary Urine,Clean Catch
--- NOTE | 2020-04-07 11:49 | P.CONS ---
History of Present Illness - Reason for Consult Consult date: 04/07/20 wound care - History of Present Illness this is a 79-year-old patient being seen by the wound care center for nonhealing ulceration to the left gluteus. Patient states that the ulceration has been there for3 weeks. She is unable to see a but she does have tenderness to the site. Patient denies any increased drainage from the site.. Patient presents with a stage II pressure ulcer to the left gluteus wound edges are attached the wound bases fat layer exposure. No tunneling or undermining noted. Measuring approximately 0.9 x 0.6 x 0.1 cm granulation seen throughout the wound bed with moderate [place].. Periwound shows excoriation and maceration. Patient's past medical history significant for Parkinson's hypothyroidism. She lives at home with her . does the majority of her care. Patient utilizes a walker. It appears she spends the majority of her time sitting or lying in bed. Review Of Systems: Constitutional: No fever, no chills, no night sweats. No weight change. No weakness, fatigue or lethargy. No daytime sleepiness. Integumentary:reports wounds, no lesions. No rash or pruritus. No unusual bruising. No change in hair or nails. Physical exam: General Appearance: Alert, cooperative, no distress, appears stated age. Skin: See HPI all other Skin color, texture, tugor normal, no rashes or lesions. Neurologic: Alert oriented x3 Assessment/plan: 1. Pressure ulcer stage II sacral area with fat layer exposure. Apply honey alginate, [place] gauze, border foam. Change Saturday. Patient can continue with these dressings with home care. She'll be set up in the wound care center in the next week or 2. Discussed with patient the importance of offloading including using a Roho cushion for sitting. Increased protein. Thank you for the consultation any questions please contact the wound care center DNP note has been reviewed and discussed with Dr. Vallejo and the impression and plan of care has been directed as dictated. Past Medical History Past Medical History: Coronary Artery Disease (CAD), Cancer, Osteoarthritis (OA), Thyroid Disorder Additional Past Medical History / Comment(s): COLON CANCER 2019, Parkinson's, hx gastric ulcers,colitis, arthritis. FREQUENT [place] FELL THREE TIMES LAST WEEK. BALANCE OFF. History of Any Multi-Drug Resistant Organisms: None Reported Past Surgical History: Bowel Resection, Hysterectomy, Orthopedic Surgery Additional Past Surgical History / Comment(s): arthroscopy lt knee. THYROIDECTOMY. COLONOSCOPY Past Anesthesia/Blood Transfusion Reactions: No Reported Reaction Additional Past Anesthesia/Blood Transfusion Reaction / Comm: no hx blood transfusion Past Psychological History: No Psychological Hx Reported Smoking Status: Never smoker - Past Family History Father Additional Family Medical History / Comment(s): Black lung and ETOH Mother Family Medical History: Cancer, CVA/TIA Additional Family Medical History / Comment(s): Uterine CA Medications and Allergies Home Medications Medication Instructions Recorded Confirmed Type Carbidopa-Levodopa 25-100 mg 0.5 tab PO BID@0600,1200 07/22/18 04/06/20 History [Sinemet 25-100 mg] Levothyroxine Sodium [Synthroid] 75 mcg PO DAILY 09/08/18 04/06/20 History Allergies Allergy/AdvReac Type Severity Reaction Status Date / Time strawberry Allergy Rash/Hives Verified 04/06/20 18:42 sulfamethoxazole Allergy Rash/Hives Verified 04/06/20 18:42 [From Bactrim] trimethoprim [From Bactrim] Allergy Rash/Hives Verified 04/06/20 18:42 chocolate flavor AdvReac Nausea & Verified 04/06/20 18:42 Vomiting Physical Exam Vitals: Vital Signs Temp Pulse Pulse Resp BP BP Pulse Ox 04/07/20 07:06 14 04/07/20 05:00 98.3 F 74 14 135/67 94 L 04/06/20 21:35 97.7 F 62 14 157/94 98 04/06/20 20:00 98.4 F 61 16 134/71 97 04/06/20 16:55 97.7 F 62 16 97 Intake and Output 04/06/20 04/07/20 04/07/20 22:59 06:59 14:59 Other: Voiding Method Toilet # Voids 1 # Bowel Movements 0 0 Weight 52.163 kg Results CBC & Chem 7: 04/06/20 19:47 04/06/20 17:40 Labs: Abnormal Lab Results - Last 24 Hours (Table) 04/06/20 04/06/20 Range/Units 17:40 18:19 Sodium 135 L (137-145) mmol/L Glucose 102 H (74-99) mg/dL Urine Appearance Cloudy H (Clear) Urine Protein Trace H (Negative) Urine Blood Moderate H (Negative) Ur Leukocyte Esterase Moderate H (Negative) Urine RBC 11 H (0-5) /hpf Urine WBC 11 H (0-5) /hpf Ur Squamous Epith Cells 16 H (0-4) /hpf Urine Bacteria Few H (None) /hpf Urine Mucus Rare H (None) /hpf Urine Yeast (Budding) Occasional H (None) /hpf Microbiology - Last 24 Hours (Table) 04/06/20 18:19 Urine Culture - Preliminary Urine,Clean Catch Assessment and Plan (1) Pressure ulcer of sacral region, stage 2 Current Visit: Yes Status: Acute Code(s): L89.152 - PRESSURE ULCER OF SACRAL REGION, STAGE 2 SNOMED Code(s): 163161323
[2020-04-07] MEDS: ACETAMINOPHEN TAB 325 MG TAB PO PRN (12:37)
[2020-04-07 15:35] VITALS: BMI 21.0
[2020-04-08] MEDS: ACETAMINOPHEN TAB 325 MG TAB PO PRN (02:35)
[2020-04-08] MEDS: CARBIDOPA-LEVODOPA 25-100 MG 1 EACH TAB PO SCH ×2 (05:35→10:55)
[2020-04-08] MEDS: LEVOTHYROXINE 75 MCG TAB PO SCH (05:35)
[2020-04-08] MEDS: HEPARIN SODIUM,PORCINE 5,000 UNIT/ML 1 ML VIAL SQ SCH (07:20)
[2020-04-08] MEDS: SODIUM CHLORIDE 0.9% 1,000 ML IV SCH (09:08)
--- NOTE | 2020-04-08 10:51 | P.DS ---
Providers Date of admission: 04/06/20 20:23 Expected date of discharge: 04/08/20 Attending physician: Ana Henry DO Primary care physician: Danyelle Reid Hospital Course: Discharge Diagnosis: Stage II pressure ulcer scral region Frequent falls with gait instability Parkinson's disease Hypothyroidism Acute encephalopathy, resolved Hospital Course: Patient is a 79-year-old female with Parkinson's disease and 6 falls over the last 3 days, hypothyroidism, gastric ulcers, and coccyx pressure ulcer who was sent to the emergency department by her primary care physician Dr. Reid secondary to worsening of her ulcer. On arrival to the ER her vital signs were within normal limits. Laboratory analysis showed sodium of 135 but was otherwise unremarkable. She underwent a chest x-ray which showed no acute process, she underwent a pelvic x-ray which was negative for any signs of fracture or focal bone destruction. She was subsequently admitted for further management of her coccyx wound and frequent falls. She was seen by physical therapy who strongly recommends rehab due to her gait instability. Patient was initially hesitant to consider rehab, and ultimately decline going to rehab. She did agree to home health care. She reported taking her sinemet 0.5 tab twice daily ay 0600 and 1200. She has had frequent fall and notes some wear off near dinner time. She reports that she was told by a prior neurologist that sinemet will keep her up at night. We discussed that the the sinemet at noon will wear off too soon. I suggested adding an early evening dose, non exteded release, She was in agreement. She was discharge home with home health care as she declined rehab. Home healt care was arranged. She was seen by the wound care [employer] SUPERVIS[employer] who recommended therahoney and optifoam dressings, she will also follow in the wound care center. She will establish with Dr. Bustamante and follow with Dr. Reid next week. A 1600 dose of sinemet was added to her regiment. Patient seen and examined at bedside. She denies pain, SERNA, shortness of breath, nausea, and vomiting. We had a long discussion of the reasons rehab is needed. We talk about the risks of falls at home including broken bones and head injury. I offered to call the patients to discuss my recommendations for rehab. She declined and wanted to speak with her . Vital signs reviewed and stable. General: non toxic, no distress, appears at stated age Derm: warm, dry Head: atraumatic, normocephalic, symmetric Eyes: EOMI, no lid lag, anicteric sclera Mouth: no lip lesion, mucus membranes moist Cardiovascular: S1S2 reg, no murmur, positive posterior tibial pulse bilateral, Lungs: CTA bilateral, no rhonchi, no rales , no accessory muscle use Abdominal: soft, nontender to palpation, no guarding, no appreciable organomegaly Ext: no gross muscle atrophy, no edema, no contractures Neuro: no tremor, masked facies, + ridigity, slowed response times. Psych: Alert, oriented, appropriate affect A total of 40 minutes of time were spent preparing this complex discharge summary . Patient Condition at Discharge: Fair Plan - Discharge Summary New Discharge Prescriptions: New Carbidopa-Levodopa 25-100 mg [Sinemet 25-100] 1 each PO DAILY #30 tab Continue Levothyroxine Sodium [Synthroid] 75 mcg PO DAILY Carbidopa-Levodopa ER 50-200Mg [Sinemet CR 50-200 mg] 0.5 tab PO BID@0600,1200 Discharge Medication List Levothyroxine Sodium [Synthroid] 75 mcg PO DAILY 09/08/18 [History] Carbidopa-Levodopa 25-100 mg [Sinemet 25-100] 1 each PO DAILY #30 tab 04/08/20 [Rx] Carbidopa-Levodopa ER 50-200Mg [Sinemet CR 50-200 mg] 0.5 tab PO BID@0600,1200 04/08/20 [History] Follow up Appointment(s)/Referral(s): [facility], [NON-STAFF] - 1-2 Days [facility] [NON-STAFF] - 1 Week Danyelle Reid MD [Primary Care Provider] - 1-2 days Activity/Diet/Wound Care/Special Instructions: Activity: up with walker, she requires assist with all standing activities to maintain safety. She cannot be standing on her own. Diet: regular, increased protein Wound Care: Apply Therahoney Gel and cover with optifoam dressing change Saturday, Saturday, and Saturday (home health will assist). Follow with the Wound care clinic. YOU ARE AT RISK FOR RECURRENT FALLS AND INJURY YOU NEED SOMEONE WITH YOU AT ALL TIME WHEN STANDING Discharge Disposition: HOME WITH HOME HEALTH SERVICES
[2020-04-08 11:33] VITALS: BP 148/68; PULSE 73; RESP 17; TEMP 97.9
--- NOTE | 2020-04-12 23:01 | CDI ---
Documentation Clarification Form Date: 04/13/2020 From: Karl Gastelum Phone: If you have a question about this query, please contact Otilia Garcia, Painter Touch Up at [phone] between 8am and 5pm. Admit Date: 04/06/2020 08:23:00 PM Patient Name: Carmelina Camara Visit Number: [id number] Discharge Date: 04/08/2020 12:50:00 PM ATTENTION: The Clinical Documentation Specialists (CDI) and [facility] Coding Staff appreciate your assistance in clarifying documentation. Please respond to the clarification below the line at the bottom and electronically sign. The CDI & [facility] Coding staff will review the response and follow-up if needed. Please note: Queries are made part of the Legal Health Record. If you have any questions, please contact the author of this message via ITS. Dr. Ana Henry DO., Encephalopathy is documented in the DS as "Acute encephalopathy, resolved" History/Risk Factors:Coronary Artery Disease (CAD), Cancer, Osteoarthritis (OA), Thyroid Disorder,COLON CANCER 2019, Parkinson's, hx Clinical Indicators: Pressure ulcer at sacral region stage 2 Pressure ulcer stage II sacral area with fat layer exposure.Apply honey alginate, [place] gauze, border foam.Change Saturday.Patient can continue with these dressings with home care.She'll be set up in the wound care center in the next week or 2.Discussed with patient the importance of offloading including using a Roho cushion for sitting.Increased protein Altered mentation -Emergency room RN notes that she was told this is similar to patient's baseline -Attempt to receive more information DS stated as "Acute Encephalopathy". In your professional opinion, can you please clarify the specific type of Encephalopathy, if known? Metabolic Encephalopathy Septic Encephalopathy Other, please specify Unable to determine Unable to determine MTDD
== END 2020-04-08 12:50 | disposition home health service (06) | DRG 593 ==
LOC: EC 16:54 → 5NMEDONC 20:23
PROVIDERS: ADMIT Internal Medicine; ATTEND Internal Medicine
DX: L89.152 Pressure ulcer of sacral region, stage 2 (principal); G93.40 Encephalopathy, unspecified; R29.6 Repeated falls; I25.10 Atherosclerotic heart disease of native coronary artery without angina pectoris; E89.0 Postprocedural hypothyroidism; M19.90 Unspecified osteoarthritis, unspecified site; R62.7 Adult failure to thrive; G20 Parkinson's disease; Z79.890 Hormone replacement therapy; Z88.2 Allergy status to sulfonamides; Z91.018 Allergy to other foods; Z90.710 Acquired absence of both cervix and uterus; Z87.11 Personal history of peptic ulcer disease; Z85.038 Personal history of other malignant neoplasm of large intestine; Z80.49 Family history of malignant neoplasm of other genital organs; Z90.49 Acquired absence of other specified parts of digestive tract; Z98.890 Other specified postprocedural states; Z82.3 Family history of stroke
CPT/HCPCS: 36415; 71046; 72170; 80053; 81001; 82550; 83605; 83735; 84484; 85025; 86140; 87040; 87086; 93005; 99284

== ENCOUNTER → 2020-05-25 | Outpatient (CLI) | payer MEDICARE ==
--- NOTE | 2020-05-25 15:56 | US ---
EXAMINATION TYPE: US venous doppler duplex LE BI DATE OF EXAM: 05/25/2020 3:50 PM COMPARISON: NONE CLINICAL HISTORY: 79-year-old female R22.42, R22.41 swelling bilateral lower limb. SIDE PERFORMED: Bilateral TECHNIQUE: The lower extremity deep venous system is examined utilizing real time linear array sonog dayday with graded compression, doppler sonography and color-flow sonography. FINDINGS: VESSELS IMAGED: Common Femoral Vein Deep Femoral Vein Greater Saphenous Vein * Femoral Vein Popliteal Vein Small Saphenous Vein * Proximal Calf Veins - not well visualized due to swelling (* superficial vessels) Right Leg: Negative for DVT Left Leg: Positive for DVT from upper popliteal vein to lower popliteal vein. IMPRESSION: 1. Exam positive for DVT within the left lower extremity with thrombus throughout the popliteal vein. 2. No evidence for DVT within the right lower extremity imaged from the groin to the knee.
[2020-05-25 16:57] LABS: ALT 17 U/L (4-34); AST 26 U/L (14-36); African American GFR (CKD) >90 (>60 ml/min/1.73 sqM); Albumin 3.9 g/dL (3.5-5.0); Alkaline Phosphatase 88 U/L (38-126); Anion Gap 8 mmol/L; Blood Urea Nitrogen 21 mg/dL (7-17); Calcium 9.1 mg/dL (8.4-10.2); Carbon Dioxide 29 mmol/L (22-30); Chloride 100 mmol/L (98-107); Glucose 98 mg/dL (74-99); Non-African American GFR(CKD) 88 (>60 ml/min/1.73 sqM); Potassium 4.6 mmol/L (3.5-5.1); Sodium 137 mmol/L (137-145); Total Bilirubin 0.4 mg/dL (0.2-1.3); Total Protein 6.6 g/dL (6.3-8.2)
== END | disposition home or self-care (01) ==
LOC: RADUSWWP 15:18
PROVIDERS: ATTEND Family Medicine
DX: I82.432 Acute embolism and thrombosis of left popliteal vein (principal); R60.9 Edema, unspecified; R06.00 Dyspnea, unspecified
CPT/HCPCS: 80053; 83880; 93970

== ENCOUNTER → 2020-06-03 | Outpatient (CLI) | payer MEDICARE ==
--- NOTE | 2020-06-03 19:16 | CT ---
EXAMINATION TYPE: CT brain wo con DATE OF EXAM: 06/03/2020 COMPARISON: None INDICATION: weakness, hx parkinsons DLP: 1336.5 mGycm, Automated exposure control for dose reduction was used. CONTRAST: None CT of the brain is performed utilizing 3 mm thick sections through the posterior fossa and 3 mm thick sections through the remaining calvarium. Study is performed within 24 hours of arrival to the hosp ital. No abnormal hyperdensity is present to suggest an acute intracranial hemorrhage. No mass lesion is evident. No acute infarcts are evident. There is some mild periventricular white matter hypodensity, likely on the basis of chronic white matter ischemic changes. Ventricles and sulci are mildly prominent for the patient age. Paranasal sinuses and mastoid air cells within the [id number] are clear. IMPRESSIONS: 1. Age-related atrophy with mild periventricular white matter ischemic type changes
== END ==
LOC: RADCTMAIN 18:27
PROVIDERS: ATTEND Family Medicine
DX: R90.82 White matter disease, unspecified (principal)
CPT/HCPCS: 70450

== ENCOUNTER → 2020-09-12 | Outpatient (CLI) | payer MEDICARE ==
--- NOTE | 2020-09-12 13:38 | US ---
EXAMINATION TYPE: US venous doppler duplex LE LT DATE OF EXAM: 09/12/2020 1:09 PM COMPARISON: 05/25/2020 CLINICAL HISTORY: R22.42 SWELLING OF LT LOWER LIMB. History of DVT left leg. Left leg edema. Patient on blood thinner SIDE PERFORMED: left TECHNIQUE: The lower extremity deep venous system is examined utilizing real time linear array sonog dayday with graded compression, doppler sonography and color-flow sonography. VESSELS IMAGED: Common Femoral Vein Deep Femoral Vein Greater Saphenous Vein * Femoral Vein Popliteal Vein Small Saphenous Vein * Proximal Calf Veins (* superficial vessels) Left Leg: positive for DVT left popliteal vein, non occlusive, improvement from prior exam IMPRESSION: 1. Deep venous thrombosis within the left popliteal vein is nonocclusive. This is decreased since caren or exam.
== END | disposition home or self-care (01) ==
LOC: RADUSWWP 12:44
PROVIDERS: ATTEND Family Medicine
DX: I82.432 Acute embolism and thrombosis of left popliteal vein (principal)

== ENCOUNTER → 2021-03-15 | Outpatient (CLI) | payer MEDICARE ==
--- NOTE | 2021-03-15 13:26 | US ---
EXAMINATION TYPE: US venous doppler duplex LE LT DATE OF EXAM: 03/15/2021 1:04 PM COMPARISON: US 09/12/2020 CLINICAL HISTORY: I82.401 DVT. History left leg DVT, on blood thinners SIDE PERFORMED: Left TECHNIQUE: The lower extremity deep venous system is examined utilizing real time linear array sonog dayday with graded compression, doppler sonography and color-flow sonography. VESSELS IMAGED: Common Femoral Vein Deep Femoral Vein Greater Saphenous Vein * Femoral Vein Popliteal Vein Small Saphenous Vein * Proximal Calf Veins (* superficial vessels) Left Leg: Appears negative for DVT IMPRESSION: 1. Left lower extremity ultrasound negative for deep venous thrombosis.
== END | disposition home or self-care (01) ==
LOC: RADUSWWP 12:43
PROVIDERS: ATTEND Family Medicine
DX: Z86.718 Personal history of other venous thrombosis and embolism (principal); Z79.01 Long term (current) use of anticoagulants

== ENCOUNTER 2022-02-02 10:54 | Inpatient (IN) | payer MEDICARE ==
--- NOTE | 2022-02-02 11:05 | ED ---
General Adult HPI - General Chief complaint: Altered Mental Status Stated complaint: altered Time Seen by Provider: 02/02/22 10:55 Source: patient, RN notes reviewed, old records reviewed Mode of arrival: ambulatory Limitations: no limitations - History of Present Illness Initial comments: This is a 81-year-old female presents emergency Department because found her on the toilet unresponsive. According to the she was fine 20 minutes prior to that. Patient was not responsive to him but when EMS arrived she had a GCS of 7 which progressed to about a GCS of 13 they stated initially the patient had some right-sided weakness but that cleared up fairly quickly. Patient's speech, much better but she still has slurred speech. Patient has a complaint of a headache otherwise no complaints. EMS stated after a few minutes they found no deficits aside from the speech. Patient denies chest pain or difficulty breathing. Patient denies any fever chills per patient denies abdominal pain patient denies any nausea or vomiting. EMS states at no time was she hypotensive - Related Data Home Medications Medication Instructions Recorded Confirmed Aspirin EC [Ecotrin Low Dose] 81 mg PO DAILY 02/02/22 02/02/22 Carbidopa-Levodopa 25-100 mg 1 tab PO QID 02/02/22 02/02/22 [Sinemet 25-100] Levothyroxine Sodium [Synthroid] 75 - 88 mcg PO DIRECTED 02/02/22 02/02/22 Memantine [Namenda] 5 mg PO BID 02/02/22 02/02/22 Sennosides/Docusate Sodium [Senna 1 cap PO BID 02/02/22 02/02/22 Plus 8.6-50 mg Softgel] Allergies Allergy/AdvReac Type Severity Reaction Status Date / Time strawberry Allergy Rash/Hives Verified 02/02/22 12:02 sulfamethoxazole Allergy Rash/Hives Verified 02/02/22 12:02 [From Bactrim] trimethoprim [From Bactrim] Allergy Rash/Hives Verified 02/02/22 12:02 chocolate flavor AdvReac Nausea & Verified 02/02/22 12:02 Vomiting Review of Systems ROS Statement: Those systems with pertinent positive or pertinent negative responses have been documented in the HPI. ROS Other: All systems not noted in ROS Statement are negative. Past Medical History Past Medical History: Coronary Artery Disease (CAD), Cancer, Osteoarthritis (OA), Thyroid Disorder Additional Past Medical History / Comment(s): COLON CANCER 2019, Parkinson's, hx gastric ulcers,colitis, arthritis. FREQUENT FALLS-STATES FELL THREE TIMES LAST WEEK. BALANCE OFF. History of Any Multi-Drug Resistant Organisms: None Reported Past Surgical History: Bowel Resection, Hysterectomy, Orthopedic Surgery Additional Past Surgical History / Comment(s): arthroscopy lt knee. THYROIDECTOMY. COLONOSCOPY Past Anesthesia/Blood Transfusion Reactions: No Reported Reaction Additional Past Anesthesia/Blood Transfusion Reaction / Comment(s): no hx blood transfusion Past Psychological History: No Psychological Hx Reported Smoking Status: Never smoker Past Alcohol Use History: None Reported Past Drug Use History: None Reported - Past Family History Father Additional Family Medical History / Comment(s): Black lung and ETOH Mother Family Medical History: Cancer, CVA/TIA Additional Family Medical History / Comment(s): Uterine CA General Exam - General Exam Comments Initial Comments: GENERAL: Patient is well-developed and well-nourished. Patient is nontoxic and well- hydrated and is in no acute distress. ENT: Neck is soft and supple. No significant lymphadenopathy is noted. Oropharynx is clear. Moist mucous membranes. Neck has full range of motion without eliciting any pain. EYES: The sclera were anicteric and conjunctiva were pink and moist. Extraocular movements were intact and pupils were equal round and reactive to light. Eyelids were unremarkable. PULMONARY: Unlabored respirations. Good breath sounds bilaterally. No audible rales rhonchi or wheezing was noted. CARDIOVASCULAR: There is a regular rate and rhythm without any murmurs gallops or rubs. ABDOMEN: Soft and nontender with normal bowel sounds. SKIN: Skin is clear with no lesions or rashes and otherwise unremarkable. NEUROLOGIC: Patient is alert and oriented x3. Cranial nerves II through XII are grossly intact. Motor and sensory are also intact. Patient's smile is normal bilaterally. Patient speech is somewhat slurred. MUSCULOSKELETAL: Normal extremities with adequate strength and full range of motion. LYMPHATICS: No significant lymphadenopathy is noted PSYCHIATRIC: Normal psychiatric evaluation. Limitations: no limitations Course Vital Signs 02/02/22 02/02/22 10:55 12:03 Pulse Rate 100 87 Respiratory 18 18 Rate Blood Pressure 131/79 122/76 O2 Sat by Pulse 98 92 L Oximetry Medical Decision Making - Medical Decision Making Patient was last seen normal at 10 AM I interpreted EKG. EKG shows sinus rhythm with occasional PVC at 96 bpm MI interval is 176 QRS is 95 Q-T intervals 343 QTC is 397. Patient's EKG shows no ST segment elevation. I spoke with the neurointerventionalist he agreed no altered place would be necessary in this case I read the CT of the brain and it showed no acute abnormality. CTA angiogram of the head neck showed no acute abnormality. I read the chest x-ray showed no acute abnormality. I went back into the room and reevaluated the patient she was at her baseline per the family and her speech was no longer slurred. - Lab Data Result diagrams: 02/02/22 11:07 02/02/22 11:07 Lab Results 02/02/22 02/02/22 02/02/22 Range/Units 11:07 11:07 11:07 WBC 7.8 (3.8-10.6) k/uL RBC 4.04 (3.80-5.40) m/uL Hgb 12.5 (11.4-16.0) gm/dL Hct 36.6 (34.0-46.0) % MCV 90.5 (80.0-100.0) fL MCH 31.0 (25.0-35.0) pg MCHC 34.2 (31.0-37.0) g/dL RDW 13.4 (11.5-15.5) % Plt Count 193 (150-450) k/uL MPV 8.7 Neutrophils % 60 % Lymphocytes % 35 % Monocytes % 3 % Eosinophils % 0 % Basophils % 0 % Neutrophils # 4.7 (1.3-7.7) k/uL Lymphocytes # 2.7 (1.0-4.8) k/uL Monocytes # 0.2 (0-1.0) k/uL Eosinophils # 0.0 (0-0.7) k/uL Basophils # 0.0 (0-0.2) k/uL PT 11.5 (9.0-12.0) sec INR 1.1 (<1.2) APTT 19.1 L (22.0-30.0) sec Sodium 139 (137-145) mmol/L Potassium 3.7 (3.5-5.1) mmol/L Chloride 105 (98-107) mmol/L Carbon Dioxide 26 (22-30) mmol/L Anion Gap 8 mmol/L BUN 20 H (7-17) mg/dL Creatinine 0.60 (0.52-1.04) mg/dL Est GFR (CKD-EPI)AfAm >90 (>60 ml/min/1.73 sqM) Est GFR (CKD-EPI)NonAf 87 (>60 ml/min/1.73 sqM) Glucose 209 H (74-99) mg/dL POC Glucose (mg/dL) (70-110) mg/dL POC Glu Matcher Operator ID Calcium 8.9 (8.4-10.2) mg/dL Total Bilirubin 0.7 (0.2-1.3) mg/dL AST 35 (14-36) U/L ALT 29 (4-34) U/L Alkaline Phosphatase 78 (38-126) U/L Troponin I (0.000-0.034) ng/mL Total Protein 6.5 (6.3-8.2) g/dL Albumin 4.3 (3.5-5.0) g/dL 02/02/22 02/02/22 Range/Units 11:07 11:33 WBC (3.8-10.6) k/uL RBC (3.80-5.40) m/uL Hgb (11.4-16.0) gm/dL Hct (34.0-46.0) % MCV (80.0-100.0) fL MCH (25.0-35.0) pg MCHC (31.0-37.0) g/dL RDW (11.5-15.5) % Plt Count (150-450) k/uL MPV Neutrophils % % Lymphocytes % % Monocytes % % Eosinophils % % Basophils % % Neutrophils # (1.3-7.7) k/uL Lymphocytes # (1.0-4.8) k/uL Monocytes # (0-1.0) k/uL Eosinophils # (0-0.7) k/uL Basophils # (0-0.2) k/uL PT (9.0-12.0) sec INR (<1.2) APTT (22.0-30.0) sec Sodium (137-145) mmol/L Potassium (3.5-5.1) mmol/L Chloride (98-107) mmol/L Carbon Dioxide (22-30) mmol/L Anion Gap mmol/L BUN (7-17) mg/dL Creatinine (0.52-1.04) mg/dL Est GFR (CKD-EPI)AfAm (>60 ml/min/1.73 sqM) Est GFR (CKD-EPI)NonAf (>60 ml/min/1.73 sqM) Glucose (74-99) mg/dL POC Glucose (mg/dL) 190 H (70-110) mg/dL POC Glu Matcher Operator ID Rodolfo Tijerina Calcium (8.4-10.2) mg/dL Total Bilirubin (0.2-1.3) mg/dL AST (14-36) U/L ALT (4-34) U/L Alkaline Phosphatase (38-126) U/L Troponin I 0.051 H* (0.000-0.034) ng/mL Total Protein (6.3-8.2) g/dL Albumin (3.5-5.0) g/dL Disposition Clinical Impression: Altered mental status, Syncope, TIA (transient ischemic attack) Disposition: ADMITTED IP TO THIS HOSP Referrals: Nonstaff,Physician [REFERRING] - 1-2 days Time of Disposition: 13:58
[2022-02-02 11:16] LABS: Basophils % (A) 0 %; Eosinophils % (A) 0 %; HCT 36.6 % (34.0-46.0); HGB 12.5 gm/dL (11.4-16.0); Lymphocytes # (A) 2.7 k/uL (1.0-4.8); Lymphocytes % (A) 35 %; MCHC 34.2 g/dL (31.0-37.0); MCV 90.5 fL (80.0-100.0); Mean Platelet Volume 8.7; Monocytes # (A) 0.2 k/uL (0-1.0); Monocytes % (A) 3 %; Neutrophils # (A) 4.7 k/uL (1.3-7.7); Neutrophils % (A) 60 %; Platelet Count 193 k/uL (150-450); RBC 4.04 m/uL (3.80-5.40); RDW 13.4 % (11.5-15.5); WBC 7.8 k/uL (3.8-10.6)
[2022-02-02 11:26] LABS: ALT 29 U/L (4-34); AST 35 U/L (14-36); African American GFR (CKD) >90 (>60 ml/min/1.73 sqM); Albumin 4.3 g/dL (3.5-5.0); Alkaline Phosphatase 78 U/L (38-126); Anion Gap 8 mmol/L; Blood Urea Nitrogen 20 mg/dL (7-17); Calcium 8.9 mg/dL (8.4-10.2); Carbon Dioxide 26 mmol/L (22-30); Chloride 105 mmol/L (98-107); Glucose 209 mg/dL (74-99); Non-African American GFR(CKD) 87 (>60 ml/min/1.73 sqM); Potassium 3.7 mmol/L (3.5-5.1); Sodium 139 mmol/L (137-145); Total Bilirubin 0.7 mg/dL (0.2-1.3); Total Protein 6.5 g/dL (6.3-8.2)
[2022-02-02 11:32] LABS: INR 1.1 (<1.2); Prothrombin Time 11.5 sec (9.0-12.0)
[2022-02-02 11:35] LABS: Glucose,Whole Blood 190 mg/dL (70-110)
--- NOTE | 2022-02-02 11:36 | CT ---
EXAMINATION TYPE: CT brain wo con DATE OF EXAM: 02/02/2022 COMPARISON: 06/03/2020 HISTORY: Slurred speech, parkinsons CT DLP: 1229.[address] of the brain was performed. The ventricles, basal cisterns and sulci overlying the cerebral convexities demonstrate mild enlargem ent. There is no evidence for intracranial hemorrhage or sulcal effacement. There is decreased attenuation about the periventricular white matter and deep white matter of both c erebral hemispheres, compatible with chronic small vessel ischemia. Differential diagnosis does inclu de demyelination. No mass effects are seen.No midline shift. Osseous calvarium is intact. If symptoms persist consider MRI. IMPRESSION: 1. Age related atrophic and chronic small vessel ischemic change without acute intracranial process s een at this time.
[2022-02-02 11:54] LABS: Partial Thromboplastin Time 19.1 sec (22.0-30.0)
--- NOTE | 2022-02-02 12:59 | CT ---
EXAMINATION TYPE: CT angio head neck DATE OF EXAM: 02/02/2022 HISTORY: Neuro deficit COMPARISON: 02/02/2022 CT DLP: 247.4 mGycm. Automated Exposure Control for Dose Reduction was Utilized. TECHNIQUE: CTA scan of the head and neck is performed with IV Contrast, patient injected with 65 mL of Isovue 370, axial images are obtained, coronal and sagittal reformatted images are reviewed. 3D re constructed images are created on an independent workstation and reviewed. FINDINGS: Standard three-vessel anatomy is noted in the aortic arch with atherosclerotic change of th e arch. Artifact limits assessment of the origins of the great vessels. Grossly the visualized portio ns of the proximal common carotid arteries are patent bilaterally. Visualized portions of the subclav alea arteries are patent. Assessment aortic bifurcations demonstrates mild atherosclerotic change with no significant stenosis bilaterally. Intracranially the vertebrobasilar system is patent with a dominant left vertebral artery and atheros clerotic changes. There is intracranial atherosclerotic changes involving the distal ICA bilaterally. Anterior communicating artery is not seen which may be congenital. Diminutive anterior cerebral arter ies enhance normally. The middle cerebral arteries enhance normally and are symmetric in size. Steam Boiler Fireman ior cerebral arteries appear to originate from the posterior circulation appear to enhance. Generalized degenerative change nonspecific white matter changes most typical of remote ischemia. Kyphosis of the spine with severe degenerative disc disease. Orbits are symmetric. No midline shift o r mass effect. IMPRESSION: 1. No significant stenosis of the carotid bifurcations. 2. Intracranial vasculature enhances normally without evidence to suggest thromboembolism or stenosis . 3. Degenerative and nonspecific white matter change multiple remote ischemia. NASCET criteria was used in interpretation of this exam?
--- NOTE | 2022-02-02 13:40 | XR ---
EXAMINATION TYPE: XR chest 2V DATE OF EXAM: 02/02/2022 COMPARISON: 04/06/2020 TECHNIQUE: PA and lateral views submitted. HISTORY: Altered mental status FINDINGS: Hyperinflation. Calcific tendinosis of the right shoulder. No overt failure or pneumothorax. Heart is enlarged. Hypertrophic and degenerative changes of the spine. No sizable pleural effusion. IMPRESSION: 1. Cardiomegaly correlate for COPD.
[2022-02-02] MEDS ORDERED: bisacodyL 5 MG TABLET.DR PO PRN (14:54)
[2022-02-02] MEDS ORDERED: ONDANSETRON 4 MG/2 ML VIAL IVP PRN (14:54)
[2022-02-02] MEDS ORDERED: NALOXONE 0.4 MG/ML 1 ML VIAL IV PRN (14:54)
[2022-02-02] MEDS ORDERED: CARBIDOPA-LEVODOPA 25-100 MG 1 EACH TAB PO SCH (15:00)
--- NOTE | 2022-02-02 15:30 | P.HPIM ---
History of Present Illness H&P Date: 02/02/22 Patient is a 81-year-old with Parkinson's, Starting with Lewy Body Dementia, coronary artery disease, prior colon cancer status post resection, and coronary artery disease presented to the ER via EMS. Apparently she was found to be unresponsive by her . She had a GCS of 7 on arrival to the ER. Initial vital signs in the ER within normal limits. Initial laboratory analysis was remarkable for a glucose of 209, BUN 20, and troponin of 0.051. Chest x-ray showed no acute process. Due to her inability to have speech a code stroke was called. Her NIH was 1. They talked with the stroke network did not recommend TPA. While in the ER her GCS returned to 13. Imaging: CTA head and neck - no significant stenosis and carotid bifurcations, intracranial vasculature enhances normally without evidence of thrombus, degenerative nonspecific white matter changes with multiple areas of remote ischemia CT head - age-related atrophic and chronic small vessel ischemic changes without acute intracranial process. Patient seen and examined at bedside. and daughter provided most of the history. Apparently this morning the got her out of bed into the bathroom. He went to go get her clothes and when he came back she was unresponsive. He stated he could not feel pulses in her wrist or in her neck. However when EMS arrived they felt pulse but did she she was significantly confused and had some possible weakness on the right side. states she was initially diagnosed with Parkinson's in 2017. She follows with Dr. Christina from [facility]. She was last seen there approximately 2 months ago. They have diagnosed her with some possible Lewy body features. Family reports she has frequent falls at home. She does have hallucinations on a regular basis of a family living in the back room or basement area and they tried memantine but this has not helped. He reports she is starting to develop some difficulty swallowing pills but they still get them to her whole. She has some days where she eats and drinks more than others. It sounds as though she is having good and bad days. 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 Pertinent positives and negatives as discussed in HPI, a complete review of systems was performed and all other systems are negative. Vital signs reviewed General: nontoxic, no distress, appears older than stated age Derm: warm, dry Head: atraumatic, normocephalic, symmetric Eyes: EOMI, no lid lag, anicteric sclera, pupils equal round reactive to light ENT: Nose and ears atraumatic, no thrush, no pharyngeal erythema Neck: No thyromegaly, no cervical lymphadenopathy, trachea midline, supple Mouth: no lip lesion, mucus membranes dry, hypophonia Cardiovascular: S1S2 reg, no murmur, positive posterior tibial pulse bilateral, no edema, capillary refill less than 2 seconds Lungs: clear to auscultation bilateral, no rhonchi, no rales, no wheeze, no accessory muscle use Abdominal: soft, nontender to palpation, no guarding, no appreciable organomegaly, normal bowel sounds Ext: + gross muscle atrophy, muscle strength 4 out of 5 in all 4 extremities, no contractures Neuro: CN II-XII grossly intact, light touch intact all 4 extremities, finger to nose within normal limits, no resting tremor, + cogwheel rigidity noted, poor finger to nose bilaterally Psych: Alert, oriented, blunted affect Assessment/Plan: Episode of unresponsiveness -syncope vs seizure versus other, less likely TIA -Consult neurology -Neuro checks -EEG -Consider MRI -Check UA to rule out urinary tract infection -Bedside swallow evaluation -Aspirin -Statin Parkinson's disease Lewy body dementia Frequent falls -Sinement -Memantine -PT/OT -Fall precautions Hypothyroidism - synthroid - daughter would like 5 wishes book prior to discharge. The patient is admitted with an anticipated less than 2 midnight stay for evaluation of unresponsiveness. Surrogate decision-maker: daughter and CODE STATUS:full DVT prophylaxis: SCDs Discussed with: Patient, family, nursing, ED physician Anticipated discharge date: 1-[address]: Home with home health A total of 75 minutes was spent on the care of this complex patient more than 50% of the time was spent in counseling and care coordination. Past Medical History Past Medical History: Coronary Artery Disease (CAD), Cancer, Osteoarthritis (OA), Thyroid Disorder Additional Past Medical History / Comment(s): COLON CANCER 2019, Parkinson's, hx gastric ulcers, colitis, arthritis. FREQUENT FALLS-STATES FELL THREE TIMES LAST WEEK. BALANCE OFF. History of Any Multi-Drug Resistant Organisms: None Reported Past Surgical History: Bowel Resection, Hysterectomy, Orthopedic Surgery Additional Past Surgical History / Comment(s): arthroscopy lt knee. THYROIDECTOMY. COLONOSCOPY Past Anesthesia/Blood Transfusion Reactions: No Reported Reaction Additional Past Anesthesia/Blood Transfusion Reaction / Comment(s): no hx blood transfusion Past Psychological History: No Psychological Hx Reported Smoking Status: Never smoker Past Alcohol Use History: None Reported Past Drug Use History: None Reported - Past Family History Father Additional Family Medical History / Comment(s): Black lung and ETOH Mother Family Medical History: Cancer, CVA/TIA Additional Family Medical History / Comment(s): Uterine CA Medications and Allergies Home Medications Medication Instructions Recorded Confirmed Type Aspirin EC [Ecotrin Low Dose] 81 mg PO DAILY 02/02/22 02/02/22 History Carbidopa-Levodopa 25-100 mg 1 tab PO QID 02/02/22 02/02/22 History [Sinemet 25-100] Levothyroxine Sodium [Synthroid] 75 - 88 mcg PO DIRECTED 02/02/22 02/02/22 History Memantine [Namenda] 5 mg PO BID 02/02/22 02/02/22 History Sennosides/Docusate Sodium [Senna 1 cap PO BID 02/02/22 02/02/22 History Plus 8.6-50 mg Softgel] Allergies Allergy/AdvReac Type Severity Reaction Status Date / Time strawberry Allergy Rash/Hives Verified 02/02/22 12:02 sulfamethoxazole Allergy Rash/Hives Verified 02/02/22 12:02 [From Bactrim] trimethoprim [From Bactrim] Allergy Rash/Hives Verified 02/02/22 12:02 chocolate flavor AdvReac Nausea & Verified 02/02/22 12:02 Vomiting Physical Exam Osteopathic Statement: *. No significant issues noted on an osteopathic structural exam other than those noted in the History and Physical/Consult. Vitals: Vital Signs Pulse Resp BP Pulse Ox 02/02/22 14:40 88 18 128/86 93 L 02/02/22 12:03 87 18 122/76 92 L 02/02/22 10:55 100 18 131/79 98 Intake and Output 02/02/22 02/02/22 02/02/22 06:59 14:59 22:59 Other: Weight 68.039 kg Results CBC & Chem 7: 02/02/22 11:07 02/02/22 11:07 Labs: Abnormal Lab Results - Last 24 Hours (Table) 02/02/22 02/02/22 02/02/22 Range/Units 11:07 11:07 11:07 APTT 19.1 L (22.0-30.0) sec BUN 20 H (7-17) mg/dL Glucose 209 H (74-99) mg/dL POC Glucose (mg/dL) (70-110) mg/dL Troponin I 0.051 H* (0.000-0.034) ng/mL 02/02/22 Range/Units 11:33 APTT (22.0-30.0) sec BUN (7-17) mg/dL Glucose (74-99) mg/dL POC Glucose (mg/dL) 190 H (70-110) mg/dL Troponin I (0.000-0.034) ng/mL
--- NOTE | 2022-02-02 16:16 | P.CNNES ---
History of Present Illness Consult date: 02/02/22 Requesting physician: Elver Lua Reason for Consult: TIA History of Present Illness: This is a 81-year-old woman with medical history of Parkinson's disease with lewy body features who presented emergency department because of episode of loss of consciousness with post ictal confusion. History was obtained from the patient's daughter was at bedside. Per the daughter the patient's was at baseline in the morning and then her helped her to go the toilent (baseline) then when he went to get her to clothes and came back, he found her stooped down on the toilet not responding. No jerking of extremity, foaming around the mouth. Her loss of consciousness was at least few minutes minutes and it she feels the patient is back to her baseline. This seems with the ED arrived they felt possibly right sided weakness but apparently it cleared up quickly. She has underlying speech difficulty and according to the daughter she mumbles. No history of seizures or passing out. No history of stroke. According to the patient's daughter patient has diagnosis of Parkinson disease since 2016 and was following-up with Dr. Newell and continues to follow at [facility] neurology team. Last seen was in November 2021. Seems the patient has hallucination and appears more visual which is chronic. Patient usually walks with a walker and need assistance going to bathroom. ED team activated stroke page because of concern of stroke. Patient initial vital signs is a blood pressure of 131/79, heart rate of the 100 comments rate of 18, pulse ox of 98% room air. Initial serum glucose in our facility is 209 and the BUN is a 20. The troponin is 0.05 slightly trending up 0.809. otherwise rest of the chemistry panel is unremarkable. CBC with differential is unremarkable Patient had CT of the head which is reported as age-related atrophy and chronic small vessel ischemic change without acute intracranial process seen at this time. I personally reviewed the CT and there is no acute or subacute ischemic s troke. CT angiography of the head and neck was reported as no significant stenosis of the carotid bifurcation. Intracranial vasculature enhances normally without evidence to suggest thromboembolism or stenosis. Degenerative and nonspecific white matter change multiple remote ischemia. EKG is reported as sinus rhythm with occasional ventricular premature complexes. Possible left atrial enlargement. ST and deviation to moderate T-wave abnormality, consider inferior ischemia. Abnormal EKG. Because of the patient drastic improvement no IV TPA because a risk outweigh the benefit. Review of Systems Review of system: The 12 point system was reviewed and apparent positive and negative per HPI. Past Medical History Past Medical History: Coronary Artery Disease (CAD), Cancer, Osteoarthritis (OA), Thyroid Disorder Additional Past Medical History / Comment(s): COLON CANCER 2019, Parkinson's, hx gastric ulcers,colitis, arthritis. FREQU[place]STAT[place] FELL THREE TIMES LAST WEEK. BALANCE OFF. History of Any Multi-Drug Resistant Organisms: None Reported Past Surgical History: Bowel Resection, Hysterectomy, Orthopedic Surgery Additional Past Surgical History / Comment(s): arthroscopy lt knee. THYROIDE CTOMY. COLONOSCOPY Past Anesthesia/Blood Transfusion Reactions: No Reported Reaction Additional Past Anesthesia/Blood Transfusion Reaction / Comment(s): no hx blood transfusion Past Psychological History: No Psychological Hx Reported Smoking Status: Never smoker Past Alcohol Use History: None Reported Past Drug Use History: None Reported - Past Family History Father Additional Family Medical History / Comment(s): Black lung and ETOH Mother Family Medical History: Cancer, CVA/TIA Additional Family Medical History / Comment(s): Uterine CA Medications and Allergies Home Medications Medication Instructions Recorded Confirmed Type Aspirin EC [Ecotrin Low Dose] 81 mg PO DAILY 02/02/22 02/02/22 History Carbidopa-Levodopa 25-100 mg 1 tab PO QID 02/02/22 02/02/22 History [Sinemet 25-100] Levothyroxine Sodium [Synthroid] 75 - 88 mcg PO DIRECTED 02/02/22 02/02/22 History Memantine [Namenda] 5 mg PO BID 02/02/22 02/02/22 History Sennosides/Docusate Sodium [Senna 1 cap PO BID 02/02/22 02/02/22 History Plus 8.6-50 mg Softgel] Allergies Allergy/AdvReac Type Severity Reaction Status Date / Time strawberry Allergy Rash/Hives Verified 02/02/22 12:02 sulfamethoxazole Allergy Rash/Hives Verified 02/02/22 12:02 [From Bactrim] trimethoprim [From Bactrim] Allergy Rash/Hives Verified 02/02/22 12:02 chocolate flavor AdvReac Nausea & Verified 02/02/22 12:02 Vomiting Physical Examination - Vital Signs Vital Signs: Vital Signs Pulse Resp BP Pulse Ox 02/02/22 14:40 88 18 128/86 93 L 02/02/22 12:03 87 18 122/76 92 L 02/02/22 10:55 100 18 131/79 98 Intake and Output 02/02/22 02/02/22 02/02/22 06:59 14:59 22:59 Other: Weight 68.039 kg GENERAL: The patient is lying in bed and is not in acute distress. CHEST: The heart rate is regular rate rhythm. No murmurs to auscultation. LUNG: Clear to auscultation bilaterally no wheezing noted throughout. Not labored breathing. ABDOMEN/GI: Bowel sounds present in all 4 quadrants. No tenderness to palpation throughout. NEUROLOGICAL: Higher mental function: The patient is awake, alert, oriented to self, time and stated she is in the hospital. She is following simple commands. She is slow responding and mumbles (per daughter this is baseline and feels is more talking currently than past couple weeks). No neglect. Cranial nerves: The pupils are round, equal and reactive to light. Visual piper are full to confrontation throughout. Extraocular movement is intact no nystagmus is noted. Facial sensation is normal to touch throughout. Has mask- like face. The facial strength is normal throughout. Hearing is mildly decreased bilaterally to hand rub. Tongue is midline and moved [id number] without any difficulty. No dysarthria is noted. Is severely hypophonic. Shoulder shrug is normal bilaterally. Motor: The strength is 5 over 5 throughout. Normal tone and bulk. Cerebellum: Normal finger to nose bilaterally. Sensation: Sensation is normal to touch throughout. Reflexes (right/left): 2+ uppers while lowers are 1+. Plantars are mute bilaterally. Results - Laboratory Findings CBC and BMP: 02/02/22 11:07 02/02/22 11:07 Abnormal Lab Findings: Abnormal Labs 02/02/22 02/02/22 02/02/22 11:07 11:07 11:07 APTT 19.1 L BUN 20 H Glucose 209 H POC Glucose (mg/dL) Troponin I 0.051 H* 02/02/22 11:33 APTT BUN Glucose POC Glucose (mg/dL) 190 H Troponin I Assessment and Plan Assessment: Episode of loss of consciousness (patient was on the toilet and was unresponsive and last minutes but no jerking of extremities or foaming around the mouth). I feel possible vasovagal syncope vs seizure (since prolonged state). EMS felt ?right sided weakness at seen but in ED no evidence of focal weakness and I feel less TIA is lower on differential compared to syncope or seizure but cannot be excluded. Parkinson's disease with Lewy body feature Slightly elevated troponin which is likely reactive Plan: I ordered an urgent EEG. I will hold on placing the patient on antiepileptic drugs unless she has any clear clinical seizures or any seizure or discharges on the EEG. 2-D echo was ordered. I ordered the lactic acid vein as well as orthostatic vitals We'll continue aspirin 81 mg daily. We'll continue her home medication of Sinement. Continue neuro checks On cardiac monitoring Patient is placed on seizure precautions seizure pads PT OT and STORAGE MANAGEMENT CONSULTANT are consulted For her thyroid abnormality will defer the management to the primary team. The plan is discussed with the patient's daughter was at bedside and the primary team. Thank you consultation. Time with Patient: Greater than 30
[2022-02-02 16:30] LABS: T4, Free (Free Thyroxine) 1.28 ng/dL (0.78-2.19)
[2022-02-02] MEDS: MEMANTINE 5 MG TAB PO SCH (20:54)
[2022-02-02] MEDS: CARBIDOPA-LEVODOPA 25-100 MG 1 EACH TAB PO SCH (20:55)
[2022-02-02] MEDS: SENNOSIDES-DOCUSATE SODIUM 1 EACH TAB PO SCH (20:55)
[2022-02-02] MEDS: ASPIRIN 81 MG PO SCH (20:55)
[2022-02-02 22:23] LABS: Appearance,Urine Cloudy (Clear); Bacteria,Urine Occasional /hpf; Bilirubin,Urine Negative (Negative); Blood,Urine Small (Negative); Color,Urine Yellow; Glucose,Urine (UA) Negative (Negative); Ketones,Urine Trace (Negative); Leukocyte Esterase,Urine Small (Negative); Mucus,Urine Rare /hpf; Nitrite,Urine Negative (Negative); PH, Urine 5.5 (5.0-8.0); Protein,Urine Trace (Negative); RBC,Urine 22 /hpf (0-5); Squamous Epithelial Cell,Urine 5 /hpf (0-4); Urobilinogen,Urine <2.0 mg/dL (<2.0); WBC,Urine 15 /hpf (0-5)
[2022-02-02 22:25] LABS: Specific Gravity,Urine >1.050 (1.001-1.035)
--- NOTE | 2022-02-02 23:32 | EEG ---
ELECTROENCEPHALOGRAM REPORT CLINICAL HISTORY: This is a 81-year-old woman who had an episode of unresponsiveness at home. The video EEG is obtained to evaluate for seizure epileptiform activity. RELEVANT MEDICATION: The patient is not on any antiepileptic drugs. EEG TYPE: A routine 21-channel EEG is performed with video using the 10/20 electrode placement system. DESCRIPTION: Wakefulness and drowsiness are obtained. During awake state, the posterior- dominant rhythm consists of [id number] voltage of 8 hertz activity that is well modulated, well sustained. There is no physiological stage 2 sleep architecture seen. There is no focal slowing. Interictal and ictal is none. ACTIVATION PROCEDURE: Photic stimulation did not evoke a posterior driving response. There is no abnormality during the photic stimulation. Hyperventilation is not performed. CLINICAL INTERPRETATION: This is a normal routine EEG. There is no focal slowing, epileptiform discharge, or seizure on the EEG. Normal EEG does not rule out underlying epilepsy. Clinical correlation is recommended. NUZHTA / APRYL: [id number] / [id number]
[2022-02-03] MEDS: SODIUM CHLORIDE 0.9% 1,000 ML IV SCH ×3 (05:00→17:59)
[2022-02-03] MEDS: LEVOTHYROXINE 88 MCG TAB PO SCH (06:10)
[2022-02-03] MEDS: SENNOSIDES-DOCUSATE SODIUM 1 EACH TAB PO SCH ×2 (08:40→20:15)
[2022-02-03] MEDS: ASPIRIN 81 MG PO SCH (08:40)
[2022-02-03] MEDS: CARBIDOPA-LEVODOPA 25-100 MG 1 EACH TAB PO SCH ×3 (08:40→20:15)
[2022-02-03] MEDS: MEMANTINE 5 MG TAB PO SCH ×2 (08:40→20:15)
[2022-02-03] MEDS ORDERED: DEXTROSE 50% SYRINGE 50 ML IVP PRN ×2 (11:30)
--- NOTE | 2022-02-03 11:34 | P.PN ---
Subjective Progress Note Date: 02/03/22 Patient this morning was lying in her bed and eating a bag of chips. She is only AAO 1. However she was following simple commands. Objective - Vital Signs Vital signs: Vital Signs Temp 98 F 02/03/22 11:17 Pulse 65 02/03/22 11:17 Resp 16 02/03/22 11:17 BP 90/51 02/03/22 11:17 Pulse Ox 97 02/03/22 11:17 FiO2 Intake & Output 02/02/22 02/03/22 02/03/22 18:59 06:59 18:59 Intake Total 658 540 Balance 658 540 Weight 68.039 kg Intake: Oral 658 540 Other: Voiding Method Bedpan Bedpan Diaper Diaper # Voids 1 # Bowel Movements 0 - Exam General examination - Alert and Oriented 1 in NAD, appears chronically debilitated Heart - + S1S2 no murmurs Lungs - diminished breath sounds bilaterally Abdomen soft NT ND +ve BS Extremities - No edema EMAIL MARKETING EXECUTIVE - Moving all 4 extremities spontaneously, follows simple commands Psych - Calm and cooperative and pleasantly demented - Labs CBC & Chem 7: 02/02/22 11:07 02/02/22 11:07 Labs: Abnormal Lab Results - Last 24 Hours (Table) 02/02/22 02/02/22 02/02/22 Range/Units 11:07 11:07 11:33 APTT 19.1 L (22.0-30.0) sec POC Glucose (mg/dL) 190 H (70-110) mg/dL Troponin I 0.051 H* (0.000-0.034) ng/mL TSH (0.465-4.680) mIU/L Urine Appearance (Clear) Ur Specific [place] (1.001-1.035) Urine Protein (Negative) Urine Ketones (Negative) Urine Blood (Negative) Ur Leukocyte Esterase (Negative) Urine RBC (0-5) /hpf Urine WBC (0-5) /hpf Ur Squamous Epith Cells (0-4) /hpf Urine Bacteria (None) /hpf Urine Mucus (None) /hpf 02/02/22 02/02/22 02/02/22 Range/Units 15:00 15:00 18:44 APTT (22.0-30.0) sec POC Glucose (mg/dL) (70-110) mg/dL Troponin I 0.809 H* 1.060 H* (0.000-0.034) ng/mL TSH 8.950 H (0.465-4.680) mIU/L Urine Appearance (Clear) Ur Specific [place] (1.001-1.035) Urine Protein (Negative) Urine Ketones (Negative) Urine Blood (Negative) Ur Leukocyte Esterase (Negative) Urine RBC (0-5) /hpf Urine WBC (0-5) /hpf Ur Squamous Epith Cells (0-4) /hpf Urine Bacteria (None) /hpf Urine Mucus (None) /hpf 02/02/22 Range/Units 21:05 APTT (22.0-30.0) sec POC Glucose (mg/dL) (70-110) mg/dL Troponin I (0.000-0.034) ng/mL TSH (0.465-4.680) mIU/L Urine Appearance Cloudy H (Clear) Ur Specific [place] >1.050 H (1.001-1.035) Urine Protein Trace H (Negative) Urine Ketones Trace H (Negative) Urine Blood Small H (Negative) Ur Leukocyte Esterase Small H (Negative) Urine RBC 22 H (0-5) /hpf Urine WBC 15 H (0-5) /hpf Ur Squamous Epith Cells 5 H (0-4) /hpf Urine Bacteria Occasional H (None) /hpf Urine Mucus Rare H (None) /hpf Microbiology - Last 24 Hours (Table) 02/02/22 21:05 Urine Culture - Preliminary Urine,Voided Assessment and Plan Assessment: Episode of unresponsiveness Possible syncope versus seizure and less likely TIA Patient evaluated by neurology. Patient had an EEG done that was normal and lactic acid was within normal limits so doubt seizure Neurology not recommended to start any antiepileptics at this time Patient's troponins are increasing We'll consult cardiology to rule out cardiac etiology Monitor on telemetry Check orthostatics PT OT eval UA shows small leukocyte esterase and negative nitrite and protein WBC with occasional bacteria so unlikely to be UTI Elevated troponin Unable to determine at this time Check echocardiogram Cardiology consult Parkinson's disease Lewy body dementia Frequent falls -PT OT consult -Resume Sinemet and amantadine -Fall precautions Hypothyroidism -Resume Synthroid -TSH elevated however free T4 within normal limits -Repeat TSH outpatient Hyperglycemia Check hemoglobin A1c Sliding scale insulin and Accu-Cheks CODE STATUS:full code DVT prophylaxis: mechanical Anticipated length of stay > than [address]: home vs SNF
[2022-02-03 12:02] LABS: HCT 31.6 % (34.0-46.0); HGB 10.9 gm/dL (11.4-16.0); MCH 31.2 pg (25.0-35.0); MCHC 34.3 g/dL (31.0-37.0); MCV 90.9 fL (80.0-100.0); Mean Platelet Volume 8.1; Platelet Count 160 k/uL (150-450); RBC 3.48 m/uL (3.80-5.40); RDW 13.2 % (11.5-15.5); WBC 4.8 k/uL (3.8-10.6)
[2022-02-03 12:14] LABS: African American GFR (CKD) >90 (>60 ml/min/1.73 sqM); Anion Gap 6 mmol/L; Blood Urea Nitrogen 16 mg/dL (7-17); Calcium 8.2 mg/dL (8.4-10.2); Carbon Dioxide 27 mmol/L (22-30); Chloride 105 mmol/L (98-107); Glucose 109 mg/dL (74-99); Non-African American GFR(CKD) 87 (>60 ml/min/1.73 sqM); Potassium 3.6 mmol/L (3.5-5.1); Sodium 138 mmol/L (137-145)
--- NOTE | 2022-02-03 12:50 | P.PN ---
Subjective Progress Note Date: 02/03/22 The patient is seen at bedside and per nurse no further syncopal episodes. It seems her troponin is trending up. Objective - Vital Signs Vital signs: Vital Signs Temp 98 F 02/03/22 11:17 Pulse 65 02/03/22 11:17 Resp 16 02/03/22 11:17 BP 90/51 02/03/22 11:17 Pulse Ox 97 02/03/22 11:17 FiO2 Intake & Output 02/02/22 02/03/22 02/03/22 18:59 06:59 18:59 Intake Total 658 540 Balance 658 540 Weight 68.039 kg Intake: Oral 658 540 Other: Voiding Method Bedpan Bedpan Diaper Diaper # Voids 1 # Bowel Movements 0 - Exam GENERAL: The patient is lying in bed and is not in acute distress. NEUROLOGICAL: Higher mental function: The patient is mildly drowsy but is awakeable to voice. Oriented to self, time and stated she is in the hospital. She is following simple commands. She is slow responding and mumbles (per daughter this is baseline and feels is more talking currently than past couple weeks). No neglect. Cranial nerves: The pupils are round, equal and reactive to light. Visual piper are full to confrontation throughout. Extraocular movement is intact no nystagmus is noted. Facial sensation is normal to touch throughout. Has mask- like face. The facial strength is normal throughout. Hearing is mildly decreased bilaterally to hand rub. Tongue is midline and moved [id number] without any difficulty. No dysarthria is noted. Is severely hypophonic. Shoulder shrug is normal bilaterally. Motor: The strength is 5 over 5 throughout. Normal tone and bulk. Cerebellum: Normal finger to nose bilaterally. Sensation: Sensation is normal to touch throughout. Reflexes (right/left): 2+ uppers while lowers are 1+. Plantars are mute bilaterally. SOME OF THE WORK-UP DURING THIS HOSPITAL VISIT CONSISTED OF: Initial serum glucose in our facility is 209 and the BUN is a 20. Troponin is trending up and last one is 1.060, while on presentation is 0.051. Otherwise rest of the chemistry panel is unremarkable. CBC with differential is unremarkable Plasma Lactic acid venous is 1.5 which is within normal limits TSH is 8.95 while the free T4 is 1.[address] of the head which is reported as age-related atrophy and chronic small vessel ischemic change without acute intracranial process seen at this time. I personally reviewed the CT and there is no acute or subacute ischemic stroke. CT angiography of the head and neck was reported as no significant stenosis of t he carotid bifurcation. Intracranial vasculature enhances normally without evidence to suggest thromboembolism or stenosis. Degenerative and nonspecific white matter change multiple remote ischemia. Routine EEG is normal. There is no focal slowing, epileptiform discharges or seizure on the EEG. - Labs CBC & Chem 7: 02/03/22 11:12 02/03/22 11:12 Labs: Abnormal Lab Results - Last 24 Hours (Table) 02/02/22 02/02/22 02/02/22 Range/Units 15:00 15:00 18:44 RBC (3.80-5.40) m/uL Hgb (11.4-16.0) gm/dL Hct (34.0-46.0) % Glucose (74-99) mg/dL Calcium (8.4-10.2) mg/dL Troponin I 0.809 H* 1.060 H* (0.000-0.034) ng/mL TSH 8.950 H (0.465-4.680) mIU/L Urine Appearance (Clear) Ur Specific [place] (1.001-1.035) Urine Protein (Negative) Urine Ketones (Negative) Urine Blood (Negative) Ur Leukocyte Esterase (Negative) Urine RBC (0-5) /hpf Urine WBC (0-5) /hpf Ur Squamous Epith Cells (0-4) /hpf Urine Bacteria (None) /hpf Urine Mucus (None) /hpf 02/02/22 02/03/22 02/03/22 Range/Units 21:05 11:12 11:12 RBC 3.48 L (3.80-5.40) m/uL Hgb 10.9 L (11.4-16.0) gm/dL Hct 31.6 L (34.0-46.0) % Glucose 109 H (74-99) mg/dL Calcium 8.2 L (8.4-10.2) mg/dL Troponin I (0.000-0.034) ng/mL TSH (0.465-4.680) mIU/L Urine Appearance Cloudy H (Clear) Ur Specific [place] >1.050 H (1.001-1.035) Urine Protein Trace H (Negative) Urine Ketones Trace H (Negative) Urine Blood Small H (Negative) Ur Leukocyte Esterase Small H (Negative) Urine RBC 22 H (0-5) /hpf Urine WBC 15 H (0-5) /hpf Ur Squamous Epith Cells 5 H (0-4) /hpf Urine Bacteria Occasional H (None) /hpf Urine Mucus Rare H (None) /hpf Microbiology - Last 24 Hours (Table) 02/02/22 21:05 Urine Culture - Preliminary Urine,Voided Assessment and Plan Assessment: Episode of loss of consciousness/syncopal episode (patient was on the toilet and was unresponsive and last minutes but no jerking of extremities or foaming around the mouth). Her lactic acid vein is normal but troponin is trending up. Rule out cardiogenic. Possibly vasovagal. EEG is normal. EMS felt ?right sided weakness but in ED no evidence of focal weakness and I feel less TIA is lower on differential. Parkinson's disease with Lewy body feature Elevated troponin. Plan: I will hold on placing the patient on antiepileptic drugs unless she has any clear clinical seizures. EEG is normal. Cardiology is consulted. Pending orthostatic vital and 2D echo. We'll continue aspirin 81 mg daily. We'll continue her home medication of Sinement. Continue neuro checks On cardiac monitoring On seizure precautions seizure pads PT OT and ACCOUNTS PAYABLE LEAD are consulted For her thyroid abnormality will defer the management to the primary team. The plan is discussed with the patient's primary team and nurse. Time with Patient: Less than 30
--- NOTE | 2022-02-03 15:43 | P.CRDCN ---
History of Present Illness Consult date: 02/03/22 History of present illness: This pleasant 81-year-old female has a known history of Parkinson's and starting with we've body dementia, coronary artery disease orthostatic hypertension prior colon cancer status post resection. We were asked to see the patient for elevat ed troponins and syncope. Patient was using the bathroom and found unresponsive by her . Upon initial assessment her GCS was 7 she was unable to speak so a code stroke was called heard GCS did go up to 13 and she was not considered a candidate for TPA. Patient's EKG showed sinus rhythm with occasional PVCs left atrial enlargement and borderline right axis deviation along with ST and T-wave abnormalities. Her troponins were elevated at 0.051, 0.809, and 1.06. Her chest x-ray showed cardiomegaly and correlated for COPD. Her CTA of the head and neck showed no significant stenosis of the carotid and no acute process noted. In 2017 patient had an echocardiogram which showed a normal LV function with an EF that D5 to 60% and mild mitral regurgitation, just had a tilt table test at t hat time which did show positive orthostatic hypotension Patient is seen today resting comfortably in bed pleasantly confused. She denies any increased shortness of breath or chest pain. Patient is not a candidate for invasive procedures at this time. Will start Imdur 30 mg daily Toprol 12.5 twice a day and atorvastatin 40 mg daily. Will obtain a 2-D echocardiogram. Review of Systems REVIEW OF SYSTEMS At the time of my exam: CONSTITUTIONAL: Denies fever or chills. EYES: Negative for vision changes ENT: Negative for hearing loss CARDIOVASCULAR: Denies chest pain, shortness of breath, diaphoresis, orthopnea, PND or palpitations. VASCULAR: Denies edema RESPIRATORY: Denies cough. GASTROINTESTINAL: Denies abdominal pain, diarrhea, constipation, nausea or vomiting. MUSCULOSKELETAL: Denies myalgias. NEUROLOGIC: Denies numbness, tingling, headache or weakness. ENDOCRINE: Denies fatigue, weight change, polydipsia or polyurina. GENITOURINARY: Denies burning, hematuria or urgency with micturation. HEMATOLOGIC: Denies history of anemia or bleeding. DERMATOLOGY: Denies rash or skin sores PSYCH: Negative for depression or hallucinations. Past Medical History Past Medical History: Coronary Artery Disease (CAD), Cancer, Osteoarthritis (OA), Thyroid Disorder Additional Past Medical History / Comment(s): COLON CANCER 2019, Parkinson's, hx gastric ulcers,colitis, arthritis. FREQUENT FALLS-STATES FELL THREE TIMES LAST WEEK. BALANCE OFF. History of Any Multi-Drug Resistant Organisms: None Reported Past Surgical History: Bowel Resection, Hysterectomy, Orthopedic Surgery Additional Past Surgical History / Comment(s): arthroscopy lt knee. THYROIDECTOMY. COLONOSCOPY Past Anesthesia/Blood Transfusion Reactions: No Reported Reaction Additional Past Anesthesia/Blood Transfusion Reaction / Comment(s): no hx blood transfusion Past Psychological History: No Psychological Hx Reported Smoking Status: Never smoker Past Alcohol Use History: None Reported Past Drug Use History: None Reported - Past Family History Father Additional Family Medical History / Comment(s): Black lung and ETOH Mother Family Medical History: Cancer, CVA/TIA Additional Family Medical History / Comment(s): Uterine CA Medications and Allergies Home Medications Medication Instructions Recorded Confirmed Type Aspirin EC [Ecotrin Low Dose] 81 mg PO DAILY 02/02/22 02/02/22 History Carbidopa-Levodopa 25-100 mg 1 tab PO QID 02/02/22 02/02/22 History [Sinemet 25-100] Levothyroxine Sodium [Synthroid] 75 - 88 mcg PO DIRECTED 02/02/22 02/02/22 History Memantine [Namenda] 5 mg PO BID 02/02/22 02/02/22 History Sennosides/Docusate Sodium [Senna 1 cap PO BID 02/02/22 02/02/22 History Plus 8.6-50 mg Softgel] Allergies Allergy/AdvReac Type Severity Reaction Status Date / Time strawberry Allergy Rash/Hives Verified 02/02/22 12:02 sulfamethoxazole Allergy Rash/Hives Verified 02/02/22 12:02 [From Bactrim] trimethoprim [From Bactrim] Allergy Rash/Hives Verified 02/02/22 12:02 chocolate flavor AdvReac Nausea & Verified 02/02/22 12:02 Vomiting Physical Exam Vitals: Vital Signs Temp Pulse Pulse Resp BP Pulse Ox 02/03/22 11:17 98 F 65 16 90/51 97 02/03/22 08:45 63 02/03/22 08:36 97.9 F 64 15 115/66 98 02/03/22 04:00 97.7 F 70 12 121/72 99 02/03/22 00:00 97.6 F 70 12 99/61 96 02/02/22 20:00 97.8 F 80 12 109/66 97 02/02/22 16:47 98.2 F 93 16 168/99 100 Intake and Output 02/03/22 02/03/22 02/03/22 06:59 14:59 22:59 Intake Total 540 Balance 540 Intake: Oral 540 Other: Voiding Method Bedpan Bedpan Diaper Diaper # Voids 1 # Bowel Movements 0 General: Patient is pleasantly confused in no distress, and does not appear acutely ill. Skin: Skin is warm and dry and no rashes or lesions are noted. Eye: Pupils are equal, round and reactive to light, extra-ocular movements are intact; there is normal conjunctiva bilaterally. Ears, nose, mouth and throat: There are moist mucous membranes and no oral lesions. Neck: The neck is supple, there is no tenderness or JVD. Cardiovascular: There is irregular regular rate and rhythm. No murmur, rub or gallop is appreciated. Respiratory: Lungs are clear to auscultation, respirations are non-labored, breath sounds are equal. Gastrointestinal: Soft, non-distended, non-tender abdomen without masses or org anomegaly noted. There is no rebound or guarding present. Bowel sounds are unremarkable. Back: There is no tenderness to palpation in the midline. There is no obvious deformity. Musculoskeletal: Normal ROM, no tenderness, There is no pedal edema. There is no calf tenderness or swelling. Extremities: Mild bilateral pitting edema Vascular: Femoral pulse is normal. Posterior tibial pulses are normal .Dorsalis pedis is palpable. Neurological: CN II-XII intact. There are no obvious motor or sensory deficits. Speech is normal. Psychiatric: Cooperative, appropriate mood & affect, normal judgment Results 02/03/22 11:12 02/03/22 11:12 Cardiac Enzymes 02/02/22 02/02/22 Range/Units 15:00 18:44 Troponin I 0.809 H* 1.060 H* (0.000-0.034) ng/mL CBC 02/03/22 Range/Units 11:12 WBC 4.8 (3.8-10.6) k/uL RBC 3.48 L (3.80-5.40) m/uL Hgb 10.9 L (11.4-16.0) gm/dL Hct 31.6 L (34.0-46.0) % Plt Count 160 (150-450) k/uL Comprehensive Metabolic Panel 02/03/22 Range/Units 11:12 Sodium 138 (137-145) mmol/L Potassium 3.6 (3.5-5.1) mmol/L Chloride 105 (98-107) mmol/L Carbon Dioxide 27 (22-30) mmol/L BUN 16 (7-17) mg/dL Creatinine 0.61 (0.52-1.04) mg/dL Glucose 109 H (74-99) mg/dL Calcium 8.2 L (8.4-10.2) mg/dL Current Medications Generic Name Dose Route Start Last Admin Trade Name Freq PRN Reason Stop Dose Admin Acetaminophen 650 mg 02/02/22 14:54 Acetaminophen Tab 325 Mg Tab PO Q6HR PRN Mild Pain or Fever > 100.5 Aspirin 81 mg 02/02/22 15:00 02/03/22 08:40 Aspirin 81 Mg PO 81 mg DAILY KATE Administration Bisacodyl 5 mg 02/02/22 14:54 Bisacodyl 5 Mg Tablet.Dr PO DAILY PRN Constipation Carbidopa/Levodopa 1 each 02/02/22 22:00 02/03/22 08:40 Carbidopa-Levodopa 25-100 Mg 1 Each Tab PO 1 each TID KATE Administration Dextrose/Water 25 ml 02/03/22 11:30 Dextrose 50% Syringe 50 Ml IVP PER PROTOCOL PRN Hypoglycemia Protocol Dextrose/Water 50 ml 02/03/22 11:30 Dextrose 50% Syringe 50 Ml IVP PER PROTOCOL PRN Hypoglycemia Protocol Sodium Chloride 1,000 mls @ 75 mls/hr 02/02/22 15:00 02/03/22 06:13 Saline 0.9% IV Not Given .[id number] KATE Insulin Aspart 0 unit 02/03/22 17:30 Insulin Aspart (Novolog) 100 Unit/Ml Vial SQ AC-SUPPER KATE Protocol Levothyroxine Sodium 88 mcg 02/03/22 06:30 02/03/22 06:10 Levothyroxine 88 Mcg Tab PO 88 mcg 0630 KATE Administration Melatonin 3 mg 02/02/22 14:54 Melatonin 3 Mg Tablet PO HS PRN Insomnia Memantine 5 mg 02/02/22 21:00 02/03/22 08:40 Memantine 5 Mg Tab PO 5 mg BID KATE Administration Naloxone HCl 0.2 mg 02/02/22 14:54 Naloxone 0.4 Mg/Ml 1 Ml Vial IV Q2M PRN Opioid Reversal Ondansetron HCl 4 mg 02/02/22 14:54 Ondansetron 4 Mg/2 Ml Vial IVP Q8HR PRN Nausea And Vomiting Senna/Docusate Sodium 1 each 02/02/22 21:00 02/03/22 08:40 Sennosides-Docusate Sodium 1 Each Tab PO 1 each BID KATE Administration Intake and Output 02/03/22 02/03/22 02/03/22 06:59 14:59 22:59 Intake Total 540 Balance 540 Intake: Oral 540 Other: Voiding Method Bedpan Bedpan Diaper Diaper # Voids 1 # Bowel Movements 0 02/03/22 11:12 02/03/22 11:12 Assessment and Plan Assessment: NSTEMI Plan: obtain a 2-D echocardiogram Start Imdur, Toprol, atorvastatin, and aspirin Continue with telemetry monitoring Further recommendations based on clinical course The above impression and plan of care have been discussed and directed by the signing physician. Renate Oneill, nurse practitioner, acting as scribe for signing physician.
[2022-02-03] MEDS: ISOSORBIDE MONONITRATE ER 30 MG TAB.ER.24H PO SCH (16:02)
[2022-02-03] MEDS: INSULIN ASPART (NovoLOG) 100 UNIT/ML VIAL SQ SCH (16:56)
[2022-02-03 17:02] LABS: Glucose,Whole Blood 98 mg/dL (70-110)
[2022-02-03 17:17] LABS: LDL Cholesterol,Calculated 75.3 mg/dL (0.0-131.0); VLDL Calculation 17.22 mg/dL (5.00-40.00)
[2022-02-03] MEDS: MELATONIN 3 MG TABLET PO PRN (20:15)
[2022-02-03] MEDS: METOPROLOL SUCCINATE (ER) 25 MG TAB.ER.24H PO SCH (20:15)
[2022-02-03 20:47] LABS: Glucose,Whole Blood 91 mg/dL (70-110)
[2022-02-04 06:21] LABS: Glucose,Whole Blood 98 mg/dL (70-110)
[2022-02-04] MEDS: LEVOTHYROXINE 88 MCG TAB PO SCH (06:48)
[2022-02-04] MEDS: SODIUM CHLORIDE 0.9% 1,000 ML IV SCH (06:52)
[2022-02-04 07:58] LABS: Basophils % (A) 0 %; Eosinophils % (A) 0 %; HCT 27.7 % (34.0-46.0); HGB 9.5 gm/dL (11.4-16.0); Lymphocytes # (A) 1.2 k/uL (1.0-4.8); Lymphocytes % (A) 27 %; MCH 31.1 pg (25.0-35.0); MCHC 34.3 g/dL (31.0-37.0); MCV 90.6 fL (80.0-100.0); Mean Platelet Volume 8.8; Monocytes # (A) 0.2 k/uL (0-1.0); Monocytes % (A) 4 %; Neutrophils # (A) 2.9 k/uL (1.3-7.7); Neutrophils % (A) 67 %; Platelet Count 127 k/uL (150-450); RBC 3.06 m/uL (3.80-5.40); RDW 13.2 % (11.5-15.5); WBC 4.3 k/uL (3.8-10.6)
[2022-02-04 08:11] LABS: African American GFR (CKD) >90 (>60 ml/min/1.73 sqM); Anion Gap 2 mmol/L; Blood Urea Nitrogen 12 mg/dL (7-17); Calcium 7.6 mg/dL (8.4-10.2); Carbon Dioxide 26 mmol/L (22-30); Chloride 108 mmol/L (98-107); Glucose 88 mg/dL (74-99); Non-African American GFR(CKD) 89 (>60 ml/min/1.73 sqM); Potassium 3.5 mmol/L (3.5-5.1); Sodium 136 mmol/L (137-145)
[2022-02-04] MEDS: ISOSORBIDE MONONITRATE ER 30 MG TAB.ER.24H PO SCH (09:04)
[2022-02-04] MEDS: METOPROLOL SUCCINATE (ER) 25 MG TAB.ER.24H PO SCH ×2 (09:04→20:51)
[2022-02-04] MEDS: ASPIRIN 81 MG PO SCH (09:05)
[2022-02-04] MEDS: CARBIDOPA-LEVODOPA 25-100 MG 1 EACH TAB PO SCH ×3 (09:05→20:52)
[2022-02-04] MEDS: SENNOSIDES-DOCUSATE SODIUM 1 EACH TAB PO SCH ×2 (09:05→20:52)
[2022-02-04] MEDS: MEMANTINE 5 MG TAB PO SCH ×2 (09:05→20:51)
[2022-02-04] MEDS: ATORVASTATIN 40 MG TAB PO SCH (09:05)
--- NOTE | 2022-02-04 11:10 | P.PN ---
Subjective Progress Note Date: 02/04/22 Patient this morning was sitting in her bed. She is only AAO 1. She is a poor historian due to dementia. states that about a month ago patient was much more awake and alert. He states that for about a month patient has been speaking softly. He states that he mainly brought her in because she had an episode of unresponsiveness. believes that her change in mentation about a month ago was due to the Parkinson medications. He states the patient has been taking the medications for Parkinson since 2017. is also upset that the echocardiogram has not been done since admission. He states that if an echocardiogram is not done tomorrow he will take the patient home so that she can be at home for Thanksgiving. Overall is frustrated with the care that she has received. I did try to explain to the that she does have a history of Parkinson's and could be having worsening dementia. Objective - Vital Signs Vital signs: Vital Signs Temp 98.1 F 02/04/22 04:00 Pulse 60 02/04/22 09:10 Resp 15 02/04/22 09:10 BP 115/65 02/04/22 09:00 Pulse Ox 95 02/04/22 09:00 FiO2 Intake & Output 02/03/22 02/04/22 02/04/22 18:59 06:59 18:59 Intake Total 1260 Balance 1260 Intake: Oral 1260 Other: Voiding Method Bedpan Diaper Diaper Diaper # Voids 3 # Bowel Movements 0 - Exam General examination - Alert and Oriented 1 in NAD, appears chronically debilitated Heart - + S1S2 no murmurs Lungs - diminished breath sounds bilaterally Abdomen soft NT ND +ve BS Extremities - No edema [employer]MENT [employer] - Moving all 4 extremities spontaneously, follows simple commands Psych - Calm and cooperative and pleasantly demented - Labs CBC & Chem 7: 02/04/22 07:28 02/04/22 07:28 Labs: Abnormal Lab Results - Last 24 Hours (Table) 02/03/22 02/03/22 02/04/22 Range/Units 11:12 11:12 07:28 RBC 3.48 L 3.06 L (3.80-5.40) m/uL Hgb 10.9 L 9.5 L (11.4-16.0) gm/dL Hct 31.6 L 27.7 L (34.0-46.0) % Plt Count 127 L (150-450) k/uL Sodium (137-145) mmol/L Chloride (98-107) mmol/L Glucose 109 H (74-99) mg/dL Calcium 8.2 L (8.4-10.2) mg/dL 02/04/22 Range/Units 07:28 RBC (3.80-5.40) m/uL Hgb (11.4-16.0) gm/dL Hct (34.0-46.0) % Plt Count (150-450) k/uL Sodium 136 L (137-145) mmol/L Chloride 108 H (98-107) mmol/L Glucose (74-99) mg/dL Calcium 7.6 L (8.4-10.2) mg/dL Assessment and Plan Assessment: Episode of unresponsiveness Possible syncope versus seizure and less likely TIA Patient evaluated by neurology. Patient had an EEG done that was normal and lactic acid was within normal limits so doubt seizure Neurology not recommended to start any antiepileptics at this time Patient's troponins are increasing We'll consult cardiology to rule out cardiac etiology Monitor on telemetry Unable to do orthostatics as patient is maximum assist PT OT eval -> [facility] jail facility. personal support worker to discuss with regarding placement. I believe patient will likely take her home as he wants her to be at home for Thanksgiving. Worsening encephalopathy since a month -I believe this is due to worsening dementia with failure to thrive and poor oral intake - believes it is due to her Parkinson medication which the patient has been taking since 2017 -UA shows small leukocyte esterase and negative nitrite and 15 WBC with occasional bacteria so unlikely to be UTI. However will start the patient antibiotics since patient is a poor historian and if the urine culture is negative will discontinue the antibiotics Elevated troponin Unable to determine at this time Check echocardiogram -> will be done tomorrow due to weekend Cardiology on board Parkinson's disease Lewy body dementia Frequent falls -PT OT consult - recommending SNF -Resume Sinemet and amantadine -Fall precautions Hypothyroidism -Resume Synthroid -TSH elevated however free T4 within normal limits -Repeat TSH outpatient Hyperglycemia likley reactive hemoglobin A1c is 5.7 Sliding scale insulin and Accu-Cheks CODE STATUS:full code DVT prophylaxis: mechanical Anticipated length of stay > than [address]: home vs SNF
[2022-02-04 11:44] LABS: Glucose,Whole Blood 103 mg/dL (70-110)
--- NOTE | 2022-02-04 13:19 | P.PN ---
Subjective Progress Note Date: 02/04/22 Patient is seen today doing well resting comfortably in bed. She remains pleasantly confused with current speech. Her is at the bedside. Vitals remained stable.hemoglobin is 9.5 cholesterol 144 triglycerides 86 LDL 75 HDL 51 triglycerides 86, TSH is high at 8.95 free T4 is normal 1.2. The patient will continue with current cardiac medications and optimal medical management. Obtain a 2-D echocardiogram Objective - Vital Signs Vital signs: Vital Signs Temp 98.1 F 02/04/22 04:00 Pulse 59 L 02/04/22 12:12 Resp 14 02/04/22 12:12 BP 150/67 02/04/22 12:12 Pulse Ox 97 02/04/22 12:12 FiO2 Intake & Output 02/03/22 02/04/22 02/04/22 18:59 06:59 18:59 Intake Total 1260 Balance 1260 Intake: Oral 1260 Other: Voiding Method Bedpan Diaper Diaper Diaper # Voids 3 # Bowel Movements 0 - Exam PHYSICAL EXAM: VITAL SIGNS: Reviewed. GENERAL: Well-developed in no acute distress. HEENT: Head is normocephalic. Pupils are equal, round. Sclerae anicteric. Mucous membranes of the mouth are moist. NECK: Supple. No JVD or thyromegaly RESPIRATORY: Respirations even and unlabored. Lungs diminished to auscultation bilaterally. CARDIO: Regular rate and rhythm. S1 and S2 heard. No murmur or gallops. EXTREMITIES: Normal range of motion. No clubbing or cyanosis. Peripheral pulses intact. Negative for bilateral lower extremity edema NEURO: Orientated to person, mood is appropriate pleasantly confused, speech is garbled - Labs CBC & Chem 7: 02/04/22 07:28 02/04/22 07:28 Labs: Abnormal Lab Results - Last 24 Hours (Table) 02/04/22 02/04/22 Range/Units 07:28 07:28 RBC 3.06 L (3.80-5.40) m/uL Hgb 9.5 L (11.4-16.0) gm/dL Hct 27.7 L (34.0-46.0) % Plt Count 127 L (150-450) k/uL Sodium 136 L (137-145) mmol/L Chloride 108 H (98-107) mmol/L Calcium 7.6 L (8.4-10.2) mg/dL Microbiology - Last 24 Hours (Table) 02/02/22 21:05 Urine Culture - Preliminary Urine,Voided Gram Neg Bacilli Assessment and Plan Assessment: NSTEMI Plan: obtain a 2-D echocardiogram Continue Imdur, Toprol, atorvastatin, and aspirin Continue with telemetry monitoring Further recommendations based on clinical course The above impression and plan of care have been discussed and directed by the signing physician. Renate Oneill, nurse practitioner, acting as scribe for signing physician.
[2022-02-04] MEDS: ACETAMINOPHEN TAB 325 MG TAB PO PRN (14:47)
[2022-02-04 16:28] LABS: Glucose,Whole Blood 105 mg/dL (70-110)
[2022-02-04] MEDS: INSULIN ASPART (NovoLOG) 100 UNIT/ML VIAL SQ SCH (16:59)
[2022-02-04 20:02] LABS: Glucose,Whole Blood 162 mg/dL (70-110)
[2022-02-04] MEDS: MELATONIN 3 MG TABLET PO PRN (20:51)
[2022-02-05 06:15] LABS: Glucose,Whole Blood 94 mg/dL (70-110)
[2022-02-05] MEDS: SODIUM CHLORIDE 0.9% 1,000 ML IV SCH ×2 (06:20→08:47)
[2022-02-05] MEDS: LEVOTHYROXINE 88 MCG TAB PO SCH (06:21)
[2022-02-05] MEDS: SENNOSIDES-DOCUSATE SODIUM 1 EACH TAB PO SCH ×2 (08:46→20:59)
[2022-02-05] MEDS: CARBIDOPA-LEVODOPA 25-100 MG 1 EACH TAB PO SCH ×3 (08:46→20:59)
[2022-02-05] MEDS: MEMANTINE 5 MG TAB PO SCH ×2 (08:46→20:59)
[2022-02-05] MEDS: METOPROLOL SUCCINATE (ER) 25 MG TAB.ER.24H PO SCH ×2 (08:46→20:59)
[2022-02-05] MEDS: ATORVASTATIN 40 MG TAB PO SCH (08:46)
[2022-02-05] MEDS: ISOSORBIDE MONONITRATE ER 30 MG TAB.ER.24H PO SCH (08:46)
[2022-02-05] MEDS: ASPIRIN 81 MG PO SCH (08:46)
[2022-02-05 09:52] LABS: Basophils % (A) 0 %; Eosinophils % (A) 0 %; HCT 34.6 % (34.0-46.0); HGB 11.3 gm/dL (11.4-16.0); Hypochromasia Slight; Lymphocytes # (A) 1.3 k/uL (1.0-4.8); Lymphocytes % (A) 22 %; MCH 30.4 pg (25.0-35.0); MCHC 32.5 g/dL (31.0-37.0); MCV 93.4 fL (80.0-100.0); Mean Platelet Volume 9.1; Monocytes # (A) 0.2 k/uL (0-1.0); Monocytes % (A) 4 %; Neutrophils % (A) 71 %; Platelet Count 138 k/uL (150-450); RDW 13.6 % (11.5-15.5); WBC 5.6 k/uL (3.8-10.6)
[2022-02-05 10:24] LABS: African American GFR (CKD) >90 (>60 ml/min/1.73 sqM); Anion Gap 6 mmol/L; Blood Urea Nitrogen 9 mg/dL (7-17); Calcium 7.9 mg/dL (8.4-10.2); Carbon Dioxide 22 mmol/L (22-30); Chloride 109 mmol/L (98-107); Glucose 105 mg/dL (74-99); Non-African American GFR(CKD) >90 (>60 ml/min/1.73 sqM); Potassium 3.8 mmol/L (3.5-5.1); Sodium 137 mmol/L (137-145)
--- NOTE | 2022-02-05 11:24 | P.PN ---
Subjective This pleasant 81-year-old female has a known history of Parkinson's and dementia, orthostatic hypotension prior colon cancer status post resection. She does not follow with a master yacht. We were asked to see the patient for elevated troponins and syncope. Patient was using the bathroom and found unresponsive by her . Upon initial assessment her GCS was 7 she was unable to speak so a code stroke was called heard GCS did go up to 13 and she was not considered a candidate for TPA. Patient's EKG showed sinus rhythm with occasional PVCs left atrial enlargement and borderline right axis deviation along with ST and T-wave abnormalities. Her troponins were elevated at 0.051, 0.809, and 1.06. She was evaluated by cardiology and diagnosed as NSTEMI. Patient was evaluated and was not a candidate for invasive procedures at this time. 02/05/2022 Patient seen and examined at bedside, no acute distress. Denies any chest pain or shortness of breath. Vital signs are stable. She was evaluated by cardiology over the weekend and diagnosed as NSTEMI. Patient was evaluated and was not a candidate for invasive procedures at this time. Plan for optimal medical management. GENERAL: In no acute distress. NECK: Supple without JVD LUNGS: Breath sounds clear to auscultation bilaterally. Respiration equal and unlabored. No wheezes, rales or rhonchi. HEART: Regular rate and rhythm without murmurs, rubs or gallops. S1 and S2 heard. EXTREMITIES: Normal range of motion, no edema. No clubbing or cyanosis. Peripheral pulses intact. ASSESSMENT Elevated troponin, possible NSTEMI History of Parkinson's Dementia History of orthostatic hypertension History of colon cancer status post resection PLAN Patient is not a candidate for invasive procedures at this time, recommend optimizing medical therapy. 2D echocardiogram pending Continue aspirin, statin, Imdur, beta nickolas No further changes from cardiology perspective Further recommendations based on clinical course Nurse Practitioner note has been reviewed, I agree with a documented findings and plan of care. Patient was seen and examined. Objective - Vital Signs Vital signs: Vital Signs Temp 98.2 F 02/05/22 04:00 Pulse 49 L 02/05/22 04:00 Resp 12 02/05/22 04:00 BP 146/70 02/05/22 04:00 Pulse Ox 99 02/05/22 04:00 FiO2 Intake & Output 1102/05/22 02/05/22 18:59 06:59 18:59 Intake Total 540 180 Balance 540 180 Intake: Oral 540 180 Other: Voiding Method Diaper Diaper External Catheter External Catheter # Voids 3 # Bowel Movements 0 0 - Labs CBC & Chem 7: 02/05/22 08:56 02/05/22 08:56 Labs: Abnormal Lab Results - Last 24 Hours (Table) 02/04/22 02/04/22 02/04/22 Range/Units 07:28 07:28 20:00 RBC 3.06 L (3.80-5.40) m/uL Hgb 9.5 L (11.4-16.0) gm/dL Hct 27.7 L (34.0-46.0) % Plt Count 127 L (150-450) k/uL Sodium 136 L (137-145) mmol/L Chloride 108 H (98-107) mmol/L POC Glucose (mg/dL) 162 H (70-110) mg/dL Calcium 7.6 L (8.4-10.2) mg/dL Microbiology - Last 24 Hours (Table) 02/02/22 21:05 Urine Culture - Preliminary Urine,Voided Gram Neg Bacilli
[2022-02-05 12:05] LABS: Glucose,Whole Blood 87 mg/dL (70-110)
--- NOTE | 2022-02-05 13:53 | P.PN ---
Subjective Progress Note Date: 02/05/22 Patient is a 81-year-old with Parkinson's, Starting with Lewy Body Dementia, coronary artery disease, prior colon cancer status post resection, and coronary artery disease presented to the ER via EMS. Apparently she was found to be unresponsive by her . She had a GCS of 7 on arrival to the ER. Initial vital signs in the ER within normal limits. Initial laboratory analysis was remarkable for a glucose of 209, BUN 20, and troponin of 0.051. Chest x-ray showed no acute process. Due to her inability to have speech a code stroke was called. Her NIH was 1. They talked with the stroke network did not recommend TPA. Imaging: CTA head and neck - no significant stenosis and carotid bifurcations, intracranial vasculature enhances normally without evidence of thrombus, degenerative nonspecific white matter changes with multiple areas of remote ischemia CT head - age-related atrophic and chronic small vessel ischemic changes without acute intracranial process. Patient was evaluated by neurology. Patient had an EEG done that was normal. Neurology recommended no antiepileptics at this time. TSH was noted to be elevated at 8.95, free T4 within normal limits. Her synthroid dose was increased from 88 mcg to 100 mcg by mouth daily. UA showed small leukocyte esterase and negative nitrite. Urine culture + Klebsiella. Patient was started on Rocephin. Troponins were also noted to be uptrending. Cardiology was consulted and recommended Echocardiogram and no further intervention. Echocardiogram was pending at the time of this note. PT and OT was consulted and recommended SNF. Patient was seen and examined. No acute events overnight. Case discussed with the and nursing. Patient is less responsive. states she has her ups and down days. General: non toxic, no distress, appears at stated age Derm: warm, dry Head: atraumatic, normocephalic, symmetric Eyes: EOMI, no lid lag, anicteric sclera Mouth: no lip lesion, mucus membranes moist Cardiovascular: S1S2 reg, no murmur Lungs: CTA bilateral, no rhonchi, no rales , no accessory muscle use Abdominal: soft, nontender to palpation, no guarding, no appreciable organomegaly Ext: no gross muscle atrophy, no edema, no contractures Neuro: moving all extremities Psych: calm and cooperative #Episode of unresponsiveness Possible syncope versus seizure and less likely TIA Patient evaluated by neurology. EEG done, normal, lactic acid was within normal limits, doubt seizure. Neurology not recommended to start any antiepileptics at this time Echocardiogram pending Monitor on telemetry Unable to do orthostatics as patient is maximum assist PT OT recommending SNF. linen room worker to discuss with regarding placement. I believe patient will likely take her home as he wants her to be at home for Thanksgiving. #Worsening encephalopathy since a month #UTI I believe this is due to worsening dementia with failure to thrive and poor oral intake. believes it is due to her Parkinson medication which the patient has been taking since 2017 Urine Cx + Klebsiella. Continue Rocephin (D 2) Avoid sedative medications with frequent redirection #Elevated troponin Unable to determine at this time Echocardiogram pending Continue ASA, Lipitor, Metoprolol Cardiology recommends no further workup #Parkinson's disease #Lewy body dementia #Frequent falls PT OT recommending SNF Resume Sinemet and amantadine Fall precautions #Hypothyroidism Increase synthroid dose TSH elevated, free T4 within normal limits Repeat TSH outpatient #Hyperglycemia likely reactive A1c is 5.7 Sliding scale insulin and Accu-Cheks ACHS along with hypoglycemic precations CODE STATUS: Full code DVT prophylaxis: Mechanical Anticipated LOS > than [address]: home vs SNF Objective - Vital Signs Vital signs: Vital Signs Temp 98.2 F 02/05/22 04:00 Pulse 59 L 02/05/22 13:12 Resp 15 02/05/22 11:59 BP 131/59 02/05/22 11:59 Pulse Ox 98 02/05/22 11:59 FiO2 Intake & Output 02/04/22 02/05/22 02/05/22 18:59 06:59 18:59 Intake Total 540 180 Balance 540 180 Intake: Oral 540 180 Other: Voiding Method Diaper Diaper Diaper External Catheter External Catheter External Catheter # Voids 3 1 # Bowel Movements 0 0 - Labs CBC & Chem 7: 02/05/22 08:56 02/05/22 08:56 Labs: Abnormal Lab Results - Last 24 Hours (Table) 02/04/22 02/05/22 02/05/22 Range/Units 20:00 08:56 08:56 RBC 3.70 L (3.80-5.40) m/uL Hgb 11.3 L (11.4-16.0) gm/dL Plt Count 138 L (150-450) k/uL Chloride 109 H (98-107) mmol/L Creatinine 0.45 L (0.52-1.04) mg/dL Glucose 105 H (74-99) mg/dL POC Glucose (mg/dL) 162 H (70-110) mg/dL Calcium 7.9 L (8.4-10.2) mg/dL Troponin I (0.000-0.034) ng/mL 02/05/22 Range/Units 08:56 RBC (3.80-5.40) m/uL Hgb (11.4-16.0) gm/dL Plt Count (150-450) k/uL Chloride (98-107) mmol/L Creatinine (0.52-1.04) mg/dL Glucose (74-99) mg/dL POC Glucose (mg/dL) (70-110) mg/dL Calcium (8.4-10.2) mg/dL Troponin I 0.041 H* (0.000-0.034) ng/mL Microbiology - Last 24 Hours (Table) 02/02/22 21:05 Urine Culture - Final Urine,Voided Klebsiella pneumoniae
[2022-02-05] MEDS: ACETAMINOPHEN TAB 325 MG TAB PO PRN ×2 (14:26→21:00)
[2022-02-05 16:48] LABS: Glucose,Whole Blood 113 mg/dL (70-110)
[2022-02-05] MEDS: INSULIN ASPART (NovoLOG) 100 UNIT/ML VIAL SQ SCH (16:49)
--- NOTE | 2022-02-05 17:09 | CA ---
Transthoracic Echo Report Name: Carmelina Camara Age: 81 Gender: F : 1940 Exam Date: 02/05/2022 08:53 Exam Location: [facility] Ht (in): 62 Wt (lb): 150 Ordering Physician: Ana Henry DO Attending/Referring Phys: [id number], Elaine Scrap Baller Beatrice Bernal, JOS Procedure CPT: Indications: Syncope Cardiac Hx: Technical Quality: Good Contrast 1: Total Dose (mL): Contrast 2: N/A Total Dose (mL): MEASUREMENTS (Male / Female) Normal Values 2D ECHO LV Diastolic Diameter PLAX 4.2 cm 4.2 - 5.9 / 3.9 - 5.3 cm LV Systolic Diameter PLAX 2.8 cm IVS Diastolic Thickness 1.1 cm 0.6 - 1.0 / 0.6 - 0.9 cm LVPW Diastolic Thickness 1.3 cm 0.6 - 1.0 / 0.6 - 0.9 cm LV Relative Wall Thickness 0.6 RV Internal Dim ED PLAX 2.7 cm LA Systolic Diameter LX 2.6 cm 3.0 - 4.0 / 2.7 - 3.8 cm M-MODE Aortic Root Diameter MM 2.5 cm LA Systolic Diameter MM 2.9 cm LA Ao Ratio MM 1.2 MV E Point Septal Separation 0.3 cm AV Cusp Separation MM 1.7 cm DOPPLER MV Area PHT 2.7 cm??? Mitral E Point Velocity 84.4 cm/s Mitral A Point Velocity 108.1 cm/s Mitral E to A Ratio 0.8 MV Deceleration Time 278.5 ms MV E' Velocity 7.0 cm/s Mitral E to MV E' Ratio 12.1 TR Peak Velocity 185.8 cm/s TR Peak Gradient 13.8 mmHg Right Ventricular Systolic Press 18.0 mmHg FINDINGS Left Ventricle Left ventricular ejection fraction is estimated at 55%. Mildly increased left ventricular wall thickness. Right Ventricle Normal right ventricular size and function. Right ventricular systolic pressure within normal limits. Right Atrium Normal right atrial size. Left Atrium Normal left atrial size. Mitral Valve Structurally normal mitral valve. Mild mitral regurgitation. Aortic Valve Trileaflet aortic valve. Tricuspid Valve Structurally normal tricuspid valve. Mild tricuspid regurgitation. Pulmonic Valve Structurally normal pulmonic valve. Pericardium Trace pericaridal effusion. Aorta Normal size aortic root and proximal ascending aorta. CONCLUSIONS Left ventricular ejection fraction 55% Mildly increased left ventricular wall thickness Mild mitral regurgitation Mild tricuspid regurgitation RVSP 18 Previewed by: Dr. Johnson Hall DO (Electronically Signed) Final Date: 05 February 2022 17:09
[2022-02-05 19:58] LABS: Glucose,Whole Blood 102 mg/dL (70-110)
[2022-02-06 06:18] LABS: Glucose,Whole Blood 81 mg/dL (70-110)
[2022-02-06] MEDS: LEVOTHYROXINE 100 MCG TAB PO SCH (06:23)
[2022-02-06] MEDS: SODIUM CHLORIDE 0.9% 1,000 ML IV SCH (06:25)
[2022-02-06] MEDS: ASPIRIN 81 MG PO SCH (08:21)
[2022-02-06] MEDS: METOPROLOL SUCCINATE (ER) 25 MG TAB.ER.24H PO SCH ×2 (08:21→21:02)
[2022-02-06] MEDS: ATORVASTATIN 40 MG TAB PO SCH (08:21)
[2022-02-06] MEDS: SENNOSIDES-DOCUSATE SODIUM 1 EACH TAB PO SCH ×2 (08:21→21:02)
[2022-02-06] MEDS: ISOSORBIDE MONONITRATE ER 30 MG TAB.ER.24H PO SCH (08:21)
[2022-02-06] MEDS: MEMANTINE 5 MG TAB PO SCH ×2 (08:22→21:02)
[2022-02-06] MEDS: CARBIDOPA-LEVODOPA 25-100 MG 1 EACH TAB PO SCH ×3 (08:22→21:02)
[2022-02-06] MEDS ORDERED: KETOROLAC 15 MG/ML 1 ML VIAL IVP PRN (10:24)
--- NOTE | 2022-02-06 11:33 | P.PN ---
Subjective Progress Note Date: 02/06/22 Patient is a 81-year-old with Parkinson's, Starting with Lewy Body Dementia, coronary artery disease, prior colon cancer status post resection, and coronary artery disease presented to the ER via EMS. Apparently she was found to be unresponsive by her . She had a GCS of 7 on arrival to the ER. Initial vital signs in the ER within normal limits. Initial laboratory analysis was remarkable for a glucose of 209, BUN 20, and troponin of 0.051. Chest x-ray showed no acute process. Due to her inability to have speech a code stroke was called. Her NIH was 1. They talked with the stroke network did not recommend TPA. Imaging: CTA head and neck - no significant stenosis and carotid bifurcations, intracranial vasculature enhances normally without evidence of thrombus, degenerative nonspecific white matter changes with multiple areas of remote ischemia CT head - age-related atrophic and chronic small vessel ischemic changes without acute intracranial process. Patient was evaluated by neurology. Patient had an EEG done that was normal. Neurology recommended no antiepileptics at this time. TSH was noted to be elevated at 8.95, free T4 within normal limits. Her synthroid dose was increased from 88 mcg to 100 mcg by mouth daily. UA showed small leukocyte esterase and negative nitrite. Urine culture + Klebsiella. Patient was started on Rocephin. Troponins were also noted to be up trending. Cardiology was consulted and recommended Echocardiogram and no further intervention. Echocardiogram shows EF 55% with mildly increased LV wall thickness, mild mitral and tricuspid regurgita tion. PT and OT was consulted and recommended SNF. Patient was seen and examined. No acute events overnight. Patient appears more responsive and awake today. She complains of a headache but unable to describe in further detail. General: non toxic, no distress, appears at stated age Derm: warm, dry Head: atraumatic, normocephalic, symmetric Eyes: EOMI, no lid lag, anicteric sclera Mouth: no lip lesion, mucus membranes moist Cardiovascular: S1S2 reg, no murmur Lungs: CTA bilateral, no rhonchi, no rales , no accessory muscle use Abdominal: soft, nontender to palpation, no guarding, no appreciable organomegaly Ext: no gross muscle atrophy, no edema, no contractures Neuro: moving all extremities Psych: calm and cooperative #Episode of unresponsiveness Possible syncope versus seizure and less likely TIA Patient evaluated by neurology. EEG done, normal, lactic acid was within normal limits, doubt seizure. Neurology not recommended to start any antiepileptics at this time Echocardiogram shows EF 55% with mildly increased LV wall thickness, mild mitral and tricuspid regurgitation Monitor on telemetry Unable to do orthostatics as patient is maximum assist PT OT recommending SNF. outreach worker to discuss with regarding placement. I believe patient will likely take her home as he wants her to be at home for Thanksgiving. #Worsening encephalopathy since a month #UTI I believe this is due to worsening dementia with failure to thrive and poor oral intake. believes it is due to her Parkinson medication which the patient has been taking since 2017 Urine Cx + Klebsiella. Continue Rocephin (D 3) Avoid sedative medications with frequent redirection #Elevated troponin Unable to determine at this time Echocardiogram as above Continue ASA, Lipitor, Metoprolol Cardiology recommends no further workup #Parkinson's disease #Lewy body dementia #Frequent falls PT OT recommending SNF Resume Sinemet and amantadine Fall precautions #Hypothyroidism Increase synthroid dose TSH elevated, free T4 within normal limits Repeat TSH outpatient #Hyperglycemia likely reactive A1c is 5.7 Sliding scale insulin and Accu-Cheks ACHS along with hypoglycemic precations CODE STATUS: Full code DVT prophylaxis: Mechanical Anticipated LOS > than [address]: home vs SNF It appears that the patient is improving on IV antibiotics for treatment of UTI. Would recommend at least one more day of antibiotics. refusing SNF at this time. She is at high risk for readmission and falls at home. Objective - Vital Signs Vital signs: Vital Signs Temp 97.9 F 02/06/22 08:20 Pulse 61 02/06/22 10:50 Resp 17 02/06/22 10:50 BP 173/80 02/06/22 10:50 Pulse Ox 100 02/06/22 10:50 FiO2 Intake & Output 02/05/22 02/06/22 02/06/22 18:59 06:59 18:59 Intake Total 118 118 Output Total 400 550 Balance -282 -550 118 Intake: Oral 118 118 Output: Urine 400 550 Other: Voiding Method Diaper Diaper Diaper External Catheter External Catheter External Catheter # Voids 1 2 - Labs CBC & Chem 7: 02/05/22 08:56 02/05/22 08:56 Labs: Abnormal Lab Results - Last 24 Hours (Table) 02/05/22 Range/Units 16:33 POC Glucose (mg/dL) 113 H (70-110) mg/dL Microbiology - Last 24 Hours (Table) 02/02/22 21:05 Urine Culture - Final Urine,Voided Klebsiella pneumoniae
--- NOTE | 2022-02-06 11:50 | P.PN ---
Subjective Progress Note Date: 02/06/22 The patient is seen at bedside and no further new neurological issues. She has elevated troponin, and cardiology feels possible NSTEMI. Objective - Vital Signs Vital signs: Vital Signs Temp 97.9 F 02/06/22 08:20 Pulse 61 02/06/22 10:50 Resp 17 02/06/22 10:50 BP 173/80 02/06/22 10:50 Pulse Ox 100 02/06/22 10:50 FiO2 Intake & Output 02/05/22 02/06/22 02/06/22 18:59 06:59 18:59 Intake Total 118 118 Output Total 400 550 Balance -282 -550 118 Intake: Oral 118 118 Output: Urine 400 550 Other: Voiding Method Diaper Diaper Diaper External Catheter External Catheter External Catheter # Voids 1 2 - Exam GENERAL: The patient is lying in bed and is not in acute distress. NEUROLOGICAL: Higher mental function: The patient is mildly drowsy but is awakeable to voice. Oriented to self, time and stated she is in the hospital. She is following simple commands. She is slow responding and mumbles (per daughter this is baseline and feels is more talking currently than past couple weeks). No neglect. Cranial nerves: The pupils are round, equal and reactive to light. Visual piper are full to confrontation throughout. Extraocular movement is intact no nystagmus is noted. Facial sensation is normal to touch throughout. Has mask- like face. The facial strength is normal throughout. Hearing is mildly decreased bilaterally to hand rub. Tongue is midline and moved [id number] without any difficulty. No dysarthria is noted. Is severely hypophonic. Shoulder shrug is normal bilaterally. Motor: The strength is 5 over 5 throughout. Normal tone and bulk. Cerebellum: Normal finger to nose bilaterally. Sensation: Sensation is normal to touch throughout. Reflexes (right/left): 2+ uppers while lowers are 1+. Plantars are mute bilaterally. SOME OF THE WORK-UP DURING THIS HOSPITAL VISIT CONSISTED OF: Initial serum glucose in our facility is 209 and the BUN is a 20. Troponin is trending up and last one is 1.060, while on presentation is 0.051. Otherwise rest of the chemistry panel is unremarkable. CBC with differential is unremarkable Plasma Lactic acid venous is 1.5 which is within normal limits TSH is 8.95 while the free T4 is 1.[address] of the head which is reported as age-related atrophy and chronic small vessel ischemic change without acute intracranial process seen at this time. I personally reviewed the CT and there is no acute or subacute ischemic stroke. CT angiography of the head and neck was reported as no significant stenosis of the carotid bifurcation. Intracranial vasculature enhances normally without evidence to suggest thromboembolism or stenosis. Degenerative and nonspecific white matter change multiple remote ischemia. Routine EEG is normal. There is no focal slowing, epileptiform discharges or seizure on the EEG. 2-D echo was reported as left ventricular ejection fraction 55%. Mild increased left ventricle wall thickness. Mild tricuspid regurgitation. - Labs CBC & Chem 7: 02/05/22 08:56 02/05/22 08:56 Labs: Abnormal Lab Results - Last 24 Hours (Table) 02/05/22 Range/Units 16:33 POC Glucose (mg/dL) 113 H (70-110) mg/dL Microbiology - Last 24 Hours (Table) 02/02/22 21:05 Urine Culture - Final Urine,Voided Klebsiella pneumoniae Assessment and Plan Assessment: Episode of loss of consciousness/syncopal episode (patient was on the toilet and was unresponsive and last minutes but no jerking of extremities or foaming around the mouth). Her lactic acid vein is normal but troponin is trending up. Rule out cardiogenic. Possibly vasovagal. EEG is normal. EMS felt ?right sided weakness but in ED no evidence of focal weakness and I feel less TIA is lower on differential. Elevated troponin, possible NSTEMI Parkinson's disease with Lewy body feature Elevated troponin. Plan: I will hold on placing the patient on antiepileptic drugs unless she has any clear clinical seizures. EEG is normal. Cardiology is consulted. They stated no intervention for possible NSTEMI. We'll continue aspirin 81 mg daily. We'll continue her home medication of Sinement. Unable to participated for orthostatic vitals. Continue neuro checks On cardiac monitoring On seizure precautions seizure pads PT OT and TRAFFIC PERSONNEL SUPERVISOR are consulted For her thyroid abnormality will defer the management to the primary team. Upon discharge, needs to follow-up with her neurology team (over at [facility]). The plan is discussed with the patient's nurse. No further neurological work-up. Will sign off. Please reconsult if needed. Time with Patient: Less than 30
[2022-02-06 11:57] LABS: Glucose,Whole Blood 94 mg/dL (70-110)
--- NOTE | 2022-02-06 13:07 | P.PN ---
Subjective This pleasant 81-year-old female has a known history of Parkinson's and dementia, orthostatic hypotension prior colon cancer status post resection. She does not follow with a housekeeping director. We were asked to see the patient for elevated troponins and syncope. Patient was using the bathroom and found unresponsive by her . Upon initial assessment her GCS was 7 she was unable to speak so a code stroke was called heard GCS did go up to 13 and she was not considered a candidate for TPA. Patient's EKG showed sinus rhythm with occasional PVCs left atrial enlargement and borderline right axis deviation along with ST and T-wave abnormalities. Her troponins were elevated at 0.051, 0.809, and 1.06. She was evaluated by cardiology and diagnosed as NSTEMI. Patient was evaluated and was not a candidate for invasive procedures at this time. 02/06/2022 Patient seen and examined at bedside, no acute distress. Denies any chest pain or shortness of breath. BP has been elevated today, prior BPs stable. Plan for optimal medical management. Echo revealed EF 55%, mild mitral regurgitation, mild tricuspid regurgitation. GENERAL: In no acute distress. NECK: Supple without JVD LUNGS: Breath sounds clear to auscultation bilaterally. Respiration equal and unlabored. No wheezes, rales or rhonchi. HEART: Regular rate and rhythm without murmurs, rubs or gallops. S1 and S2 heard. EXTREMITIES: Normal range of motion, no edema. No clubbing or cyanosis. Peripheral pulses intact. ASSESSMENT Elevated troponin, possible NSTEMI Hypertension History of Parkinson's Dementia History of orthostatic hypertension History of colon cancer status post resection PLAN Patient is not a candidate for invasive procedures at this time, recommend optim izing medical therapy. BP rechecked manually, continues to be elevated SBP 170s. Start losartan 25mg daily Continue aspirin, statin, Imdur, beta nickolas Further recommendations based on clinical course Nurse Practitioner note has been reviewed, I agree with a documented findings and plan of care. Patient was seen and examined. Objective - Vital Signs Vital signs: Vital Signs Temp 97.9 F 02/06/22 08:20 Pulse 58 L 02/06/22 08:20 Resp 18 02/06/22 08:20 BP 170/75 02/06/22 08:20 Pulse Ox 95 02/06/22 08:20 FiO2 Intake & Output 02/05/22 02/06/22 02/06/22 18:59 06:59 18:59 Intake Total 118 118 Output Total 400 550 Balance -282 -550 118 Intake: Oral 118 118 Output: Urine 400 550 Other: Voiding Method Diaper Diaper Diaper External Catheter External Catheter External Catheter # Voids 1 2 - Labs CBC & Chem 7: 02/05/22 08:56 02/05/22 08:56 Labs: Abnormal Lab Results - Last 24 Hours (Table) 02/05/22 02/05/22 Range/Units 08:56 16:33 POC Glucose (mg/dL) 113 H (70-110) mg/dL Troponin I 0.041 H* (0.000-0.034) ng/mL Microbiology - Last 24 Hours (Table) 02/02/22 21:05 Urine Culture - Final Urine,Voided Klebsiella pneumoniae
[2022-02-06] MEDS ORDERED: LOSARTAN 25 MG TAB PO SCH (13:15)
[2022-02-06 16:26] VITALS: RESP 18
[2022-02-06] MEDS: INSULIN ASPART (NovoLOG) 100 UNIT/ML VIAL SQ SCH (17:03)
[2022-02-06 17:06] LABS: Glucose,Whole Blood 131 mg/dL (70-110)
[2022-02-06 20:07] LABS: Glucose,Whole Blood 101 mg/dL (70-110)
[2022-02-07 05:53] LABS: Glucose,Whole Blood 89 mg/dL (70-110)
[2022-02-07] MEDS: LEVOTHYROXINE 100 MCG TAB PO SCH (06:22)
[2022-02-07] MEDS: MEMANTINE 5 MG TAB PO SCH (08:44)
[2022-02-07] MEDS: SENNOSIDES-DOCUSATE SODIUM 1 EACH TAB PO SCH (08:44)
[2022-02-07] MEDS: METOPROLOL SUCCINATE (ER) 25 MG TAB.ER.24H PO SCH (08:44)
[2022-02-07] MEDS: ASPIRIN 81 MG PO SCH (08:45)
[2022-02-07] MEDS: CARBIDOPA-LEVODOPA 25-100 MG 1 EACH TAB PO SCH (08:45)
[2022-02-07] MEDS: ATORVASTATIN 40 MG TAB PO SCH (08:45)
[2022-02-07] MEDS: ISOSORBIDE MONONITRATE ER 30 MG TAB.ER.24H PO SCH (08:45)
[2022-02-07] MEDS ORDERED: LOSARTAN 25 MG TAB PO SCH (09:00)
[2022-02-07 09:44] VITALS: TEMP 97.4
[2022-02-07 11:46] VITALS: BP 164/64; PULSE 69
--- NOTE | 2022-02-07 11:58 | P.PN ---
Subjective This pleasant 81-year-old female has a known history of Parkinson's and dementia, orthostatic hypotension prior colon cancer status post resection. She does not follow with a electroplater helper. We were asked to see the patient for elevated troponins and syncope. Patient was using the bathroom and found unresponsive by her . Upon initial assessment her GCS was 7 she was unable to speak so a code stroke was called heard GCS did go up to 13 and she was not considered a candidate for TPA. Patient's EKG showed sinus rhythm with occasional PVCs left atrial enlargement and borderline right axis deviation along with ST and T-wave abnormalities. Her troponins were elevated at 0.051, 0.809, and 1.06. She was evaluated by cardiology and diagnosed as NSTEMI. Patient was evaluated and was not a candidate for invasive procedures at this time. 02/07/2022 Patient seen and examined at bedside, no acute distress. Denies any chest pain or shortness of breath. BP has improved, started on Losartan yesterday, continues to be slightly elevated SBP 150s-160s. Plan for optimal medical management. Echo revealed EF 55%, mild mitral regurgitation, mild tricuspid regurgitation. GENERAL: In no acute distress. NECK: Supple without JVD LUNGS: Breath sounds clear to auscultation bilaterally. Respiration equal and unlabored. No wheezes, rales or rhonchi. HEART: Regular rate and rhythm without murmurs, rubs or gallops. S1 and S2 heard. EXTREMITIES: Normal range of motion, no edema. No clubbing or cyanosis. Peripheral pulses intact. ASSESSMENT Elevated troponin, possible NSTEMI Hypertension History of Parkinson's Dementia History of orthostatic hypertension History of colon cancer status post resection PLAN Patient is not a candidate for invasive procedures at this time, recommend optimizing medical therapy. Losartan 25mg BID Continue aspirin, statin, Imdur, beta nickolas No further changes from a cardiology perspective. Discharge per clearance from primary and other consultants Follow up outaptient with Dr. Rouse We will follow the patient as needed. Please reconsult if needed. Nurse Practitioner note has been reviewed, I agree with a documented findings and plan of care. Patient was seen and examined. Objective - Vital Signs Vital signs: Vital Signs Temp 97.4 F L 02/07/22 08:45 Pulse 69 02/07/22 11:30 Resp 18 11/23/22 11:30 BP 164/64 02/07/22 11:30 Pulse Ox 97 02/07/22 11:30 FiO2 Intake & Output 02/06/22 02/07/22 02/07/22 18:59 06:59 18:59 Intake Total 476 240 Output Total 850 550 500 Balance -374 -483 -464 Intake: Oral 476 240 Output: Urine 850 550 500 Other: Voiding Method Diaper Diaper Diaper External Catheter External Catheter External Catheter - Labs CBC & Chem 7: 02/05/22 08:56 02/05/22 08:56 Labs: Abnormal Lab Results - Last 24 Hours (Table) 02/06/22 Range/Units 17:01 POC Glucose (mg/dL) 131 H (70-110) mg/dL
[2022-02-07 12:05] LABS: Glucose,Whole Blood 105 mg/dL (70-110)
--- NOTE | 2022-02-07 12:42 | P.DS ---
Providers Date of admission: 02/05/22 08:38 Expected date of discharge: 02/07/22 Attending physician: Ana Henry DO Consults: 02/02/22 14:08 Consult Physician Routine Consulting Provider: Prashanth Vee Consult Reason/Comments: TIA Do you want consulting provider notified?: Yes 02/02/22 18:41 Consult Physician Routine Consulting Provider: Margarito Ruvalcaba Consult Reason/Comments: syncope, elevated troponins Do you want consulting provider notified?: Yes Primary care physician: [facility] Course: Patient is a 81-year-old with Parkinson's, Starting with Lewy Body Dementia, coronary artery disease, prior colon cancer status post resection, and coronary artery disease presented to the ER via EMS. Apparently she was found to be unresponsive by her . She had a GCS of 7 on arrival to the ER. Initial vital signs in the ER within normal limits. Initial laboratory analysis was remarkable for a glucose of 209, BUN 20, and troponin of 0.051. Chest x-ray showed no acute process. Due to her inability to have speech a code stroke was called. Her NIH was 1. They talked with the stroke network did not recommend TPA. Imaging: CTA head and neck - no significant stenosis and carotid bifurcations, intracranial vasculature enhances normally without evidence of thrombus, degenerative nonspecific white matter changes with multiple areas of remote ischemia CT head - age-related atrophic and chronic small vessel ischemic changes without acute intracranial process. Patient was evaluated by neurology. Patient had an EEG done that was normal. Neurology recommended no antiepileptics at this time. TSH was noted to be elevated at 8.95, free T4 within normal limits. Her synthroid dose was increased from 88 mcg to 100 mcg by mouth daily. UA showed small leukocyte esterase and negative nitrite. Urine culture + Klebsiella. Patient was started on Rocephin. Troponins were also noted to be up trending. Cardiology was consulted and recommended Echocardiogram and no further intervention. Echocardiogram shows EF 55% with mildly increased LV wall thickness, mild mitral and tricuspid regurgitation. She was started on Metoprolol, Losartan, Imdur and Lipitor and continued on Aspirin. PT and OT was consulted and recommended SNF. was refusing SNF and any home health. She is at high risk for readmission and falls at home. He is agreeable for wheelchair van to transport the patient home on discharge. Pertinent studies include CT brain, CTA head, EEG, Echocardiogram. Patient was seen and examined. No acute events overnight. Patient appears more responsive and awake today. General: non toxic, no distress, appears at stated age Derm: warm, dry Head: atraumatic, normocephalic, symmetric Eyes: EOMI, no lid lag, anicteric sclera Mouth: no lip lesion, mucus membranes moist Cardiovascular: S1S2 reg, no murmur Lungs: CTA bilateral, no rhonchi, no rales , no accessory muscle use Abdominal: soft, nontender to palpation, no guarding, no appreciable organomegaly Ext: no gross muscle atrophy, no edema, no contractures Neuro: moving all extremities Psych: calm and cooperative Patient will be discharged home with the following instructions: Diet: Cardiac Follow up with your PCP within 1-2 days of discharge. Follow up with Cardiology within 1 week of discharge. Follow up with your Neurologist within 1 week of discharge. Take Augmentin for 6 more days. Discharge Diagnosis: #Episode of unresponsiveness #Worsening encephalopathy since a month #UTI #Elevated troponin #Parkinson's disease #Lewy body dementia #Frequent falls #Hypothyroidism #Hyperglycemia likely reactive This complex discharge took 45 minutes to complete. Patient Condition at Discharge: Stable Plan - Discharge Summary Discharge Rx Participant: No New Discharge Prescriptions: New Amoxic-Pot Clav 875-125Mg [Augmentin 875-125] 1 tab PO Q12HR 6 Days #12 tab Metoprolol Succinate (ER) [Toprol XL] 12.5 mg PO BID #60 tab Losartan [Cozaar] 25 mg PO BID #60 tab Isosorbide Mononitrate ER [Imdur] 30 mg PO DAILY #30 tab Atorvastatin [Lipitor] 40 mg PO DAILY #30 tab Continue Carbidopa-Levodopa 25-100 mg [Sinemet 25-100 mg] 1 tab PO QID Levothyroxine Sodium [Synthroid] 75 - 88 mcg PO DIRECTED Sennosides/Docusate Sodium [Senna Plus 8.6-50 mg Softgel] 1 cap PO BID Memantine [Namenda] 5 mg PO BID Aspirin EC [Ecotrin Low Dose] 81 mg PO DAILY Discharge Medication List Aspirin EC [Ecotrin Low Dose] 81 mg PO DAILY 02/02/22 [History] Carbidopa-Levodopa 25-100 mg [Sinemet 25-100 mg] 1 tab PO QID 02/02/22 [History] Levothyroxine Sodium [Synthroid] 75 - 88 mcg PO DIRECTED 02/02/22 [History] Memantine [Namenda] 5 mg PO BID 02/02/22 [History] Sennosides/Docusate Sodium [Senna Plus 8.6-50 mg Softgel] 1 cap PO BID 02/02/22 [History] Amoxic-Pot Clav 875-125Mg [Augmentin 875-125] 1 tab PO Q12HR 6 Days #12 tab 02/07/22 [Rx] Atorvastatin [Lipitor] 40 mg PO DAILY #30 tab 02/07/22 [Rx] Isosorbide Mononitrate ER [Imdur] 30 mg PO DAILY #30 tab 02/07/22 [Rx] Losartan [Cozaar] 25 mg PO BID #60 tab 02/07/22 [Rx] Metoprolol Succinate (ER) [Toprol XL] 12.5 mg PO BID #60 tab 02/07/22 [Rx] Follow up Appointment(s)/Referral(s): Nonstaff,Physician [REFERRING] - 1-2 days Clay Rouse MD [STAFF PHYSICIAN] - 1 Week Activity/Diet/Wound Care/Special Instructions: Diet: Cardiac Follow up with your PCP within 1-2 days of discharge. Follow up with Cardiology within 1 week of discharge. Follow up with your Neurologist within 1 week of discharge. Take Augmentin for 6 more days. Discharge Disposition: HOME SELF-CARE
[2022-02-07 13:55] VITALS: BMI 27.4
--- NOTE | 2022-02-12 08:50 | CDI ---
Documentation Clarification Form Date: 02/12/2022 08:38:00 AM From: Chelly Ruiz Admit Date: 02/05/2022 08:38:00 AM Patient Name: Carmelina Camara Visit Number: [id number] Discharge Date: 02/07/2022 02:08:00 PM ATTENTION: The Clinical Documentation Specialists (CDI) and [facility] Coding Staff appreciate your assistance in clarifying documentation. Please respond to the clarification below the line at the bottom and electronically sign. The CDI & [facility] Coding staff will review the response and follow-up if needed. Please note: Queries are made part of the Legal Health Record. If you have any questions, please contact the author of this message via ITS. Dr. Shane De Leon Conflicting documentation has been found in the medical record. As attending physician, please provide clarification. Per cardiology consult possible NSTEMI Per your DCS elevated troponins History/Risk Factors: Parkinson's / lewy body dementia, UTI, unresponsive Clinical Indicators: elevated troponins .051, .809, 1.060 Treatment: Imdur, 2D echocardigram, Toprol, atorvastatin and aspirin, telemetry monitoring. Please clarify which diagnosis is most appropriate: [ ] Possible NSTEMI [ ] NSTEMI ruled out only elevated troponins [ ] Other (please specify) [ ] Unable to determine Possible NSTEMI MTDD
== END 2022-02-07 14:08 | disposition home or self-care (01) | DRG 689 ==
LOC: EC 10:54 → 3SCARD 14:08 → OBSVTOIN 02-05 08:38
PROVIDERS: ADMIT Internal Medicine; ATTEND Internal Medicine
DX: N39.0 Urinary tract infection, site not specified (principal); I21.4 Non-ST elevation (NSTEMI) myocardial infarction; G93.40 Encephalopathy, unspecified; F02.82 Dementia in other diseases classified elsewhere, unspecified severity, with psychotic disturbance; R47.01 Aphasia; G31.83 Neurocognitive disorder with Lewy bodies; G20 Parkinson's disease; I11.9 Hypertensive heart disease without heart failure; I25.10 Atherosclerotic heart disease of native coronary artery without angina pectoris; B96.1 Klebsiella pneumoniae [K. pneumoniae] as the cause of diseases classified elsewhere; I49.3 Ventricular premature depolarization; J44.9 Chronic obstructive pulmonary disease, unspecified; K52.9 Noninfective gastroenteritis and colitis, unspecified; I95.1 Orthostatic hypotension; I08.1 Rheumatic disorders of both mitral and tricuspid valves; R29.6 Repeated falls; M19.90 Unspecified osteoarthritis, unspecified site; R62.7 Adult failure to thrive; R56.9 Unspecified convulsions; E89.0 Postprocedural hypothyroidism; R73.9 Hyperglycemia, unspecified; Z79.82 Long term (current) use of aspirin; Z79.899 Other long term (current) drug therapy; Z82.3 Family history of stroke; Z85.038 Personal history of other malignant neoplasm of large intestine; Z87.11 Personal history of peptic ulcer disease; Z79.890 Hormone replacement therapy; Z71.3 Dietary counseling and surveillance; Z90.49 Acquired absence of other specified parts of digestive tract; Z91.02 Food additives allergy status; Z88.1 Allergy status to other antibiotic agents
CPT/HCPCS: 36415; 70450; 70496; 70498; 71046; 80048; 80053; 80061; 81001; 83036; 83605; 84439; 84443; 84484; 85025; 85027; 85610; 85730; 87077; 87086; 87186; 93005; 93306; 95816; 99285